=== PATIENT | male | born 1955 | race Caucasian/White ===

== ENCOUNTER → 2021-11-04 13:18 | Outpatient (BNVA) | payer BC, SELFPAY | PROVIDERS: PCP Internal Medicine; Visit Provider Psychiatry & Neurology Neurology | DX: Z13.89 Encounter for screening for other disorder (principal) ==

== ENCOUNTER 2023-04-12 14:24 | Outpatient (AMB) | payer MEDICARE, SELFPAY ==
--- NOTE | 2023-04-12 14:35 | HO.SPINEOV ---
Intake Intake Visit Reasons: Pinched nerve. Intake Note: Mr. John is here today c/o low back pain. 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 He is a gentleman with known history of lumbar fusion done by Dr. Da Silva from L3-S1 a few years ago. A few months back he started to develop pain in the right side of his low back radiating around into his groin and his testicle. It did not radiate further down his leg. He he was in the hospital at [facility] for evaluation of this discomfort. Lumbar MRI at [place] showed may be moderate foraminal narrowing on the right at L5-S1 but otherwise no significant issues. He was treated with a few cortisone injections. He could not remember where they were done. He does not believe there was done in the lumbar spine. He did not have any relief from those. On my examination today he is walking with a walker he appears uncomfortable. He does have positive DOT sign on the right side. He has an artificial hip in this region. He also has positive finger Zenon test. His lumbar MRI looks excellent, although the radiologist suggests there is moderate foraminal narrowing there is no evidence of nerve compression. I do not believe the symptoms he is dealing with there is a lumbar radiculopathy. It definitely could be SI joint inflammation. It is well-known that after lumbar fusion extended down to the sacrum that SI joint problems can be a type of adjacent segment disease. I would like to send him back to Dr. Crowell to do right SI joint injection. He will follow up after that. Total amount of time spent in this visit was 20 minutes in discussion of symptoms, lumbar MRI imaging results and subsequent plan of care Hai Da Silva MD,PhD [facility] Coding Level of Care Code Est Pt Level 3 (75458) Diagnoses Chronic SI joint pain M53.3; G89.29
== END 2023-04-12 14:56 | disposition home or self-care (01) ==
PROVIDERS: PCP Internal Medicine; Visit Provider Physician Assistant
DX: M53.3 Sacrococcygeal disorders, not elsewhere classified (principal); G89.29 Other chronic pain
CPT/HCPCS: 99213

== ENCOUNTER → 2023-04-12 14:24 | Outpatient (BNVA) | payer MEDICARE, SELFPAY | PROVIDERS: PCP Internal Medicine; Visit Provider Physician Assistant | DX: G89.29 Other chronic pain (principal); M53.3 Sacrococcygeal disorders, not elsewhere classified | CPT/HCPCS: 99212 ==

== ENCOUNTER 2023-04-28 08:12 | Outpatient (REF) | payer MEDICARE, SELFPAY | END 2023-04-28 08:13 | disposition home or self-care (01) | LOC: HO.HOSX 08:12 | PROVIDERS: Visit Provider Orthopaedic Surgery | DX: M70.61 Trochanteric bursitis, right hip (principal); M25.551 Pain in right hip; Z79.899 Other long term (current) drug therapy | CPT/HCPCS: 20610; 99212; J3301 ==

== ENCOUNTER 2023-04-28 11:00 | Outpatient (AMB) | payer MEDICARE, SELFPAY ==
[2023-04-28 11:26] VITALS: BMI 37.6
--- NOTE | 2023-04-28 11:26 | MHC.OFFVIS ---
Intake Vital Signs 04/28/23 11:26 Height 5 ft 7 in Weight 240 lb BMI 37.6 Intake Visit Reasons: AUDIOMETRIST-Right hip pain Intake Note: Pritesh 67 yr old male presents today for a new patient visit to re-establish care with DR. Bashir. Hx of B/L knee and hip replacement. States he is here for his right hip pain. He describes his pain as achy in nature. Most of the pain is located along the lateral aspect of his right hip. He has had cortisone injections given into his back which gave him minimal relief. He has also undergone lumbar spine fusion surgery by Dr. Da Silva. He was recently seen in the neurosurgery office and told that no further back surgery is indicated at this time. He denies any fevers or chills. He denies any recent trauma. Allergies codeine Adverse Reaction (Mild, Verified 04/28/23 11:29) Gastrointestinal Upset Medication List - Last Reconciled 04/28/23 by Missael Bashir MD aspirin 81 mg PO DAILY atorvastatin (Lipitor) 80 mg PO DAILY baclofen 1 tab qam and 2 tabs qhs PO bedtime; buspirone 5 mg PO BID carvedilol 6.25 mg PO BID escitalopram oxalate 20 mg PO DAILY gabapentin 300 mg PO BEDTIME lidocaine 5% 1 patch topical DAILY lisinopril 2.5 mg PO DAILY methylprednisolone (Medrol (Samson)) PO PER PKG DIR pregabalin 50 mg PO TID PFSH Medical History (Updated 04/28/23 @ 12:41 by Missael Bashir MD) Cervical spondylosis Adjustment disorder Hypersomnia Snoring Obesity Spondylosis BPPV (benign paroxysmal positional vertigo) Myocardial infarction Surgical History History of hip surgery History of knee replacement Hx of cholecystectomy Family History Father CAD (coronary artery disease) Hyperlipidemia Mother CAD (coronary artery disease) Hyperlipidemia Social History Alcohol intake: current Patient Tobacco Use Status: Never used Tobacco Physical Exam Vital Signs: BMI result Body Mass Index 37.6 Const Other: Well-nourished well-developed very friendly male awake alert and oriented x3 in no acute distress Extrem Other: Bilateral lower extremity examination shows good capillary refill, no skin lesions noted, normal sensation light touch Right hip examination shows that the surgical incision is well healed, no erythema, no swelling, minimal discomfort with range of motion, focal tenderness over his bursa Office Procedures Joint Injection/Drain Joint Injection/Drain Primary Site: other (Right hip greater trochanteric bursa) Prep: site was prepped using aseptic technique Injected: 40 mg of and Kenalog Procedure: The patient tolerated the procedure well Coding - Large joint Procedure code (CPT) selection complete Results Reviewed Results Reviewed: 04/28/23 11:37 Lidocaine HCl 2 % MPF [Xylocaine 2 % MPF] 5 ml .ROUTE .STK-MED ONE 04/28/23 11:38 Triamcinolone Acetonide [Kenalog-40] 40 mg .ROUTE .STK-MED ONE X-rays of the patient's right hip show a total hip arthroplasty in good position with no signs of loosening, no acute bony abnormalities Assessment & Plan Assessment & Plan (1) Trochanteric bursitis, right hip: Code(s): M70.61 - Trochanteric bursitis, right hip Plan Mr. Cota presents with pain along the lateral aspect of his right hip most likely due to greater trochanteric bursitis. Thus, the risks and benefits of a cortisone injection were discussed at length with the patient. The patient wished to proceed. He tolerated the injection well. I also gave him a prescription for a Medrol Dosepak. Activity modifications were discussed at length with the patient. He will contact me prior to his follow-up appointment in 6-8 weeks should his symptoms worsen in any way. Feel free to call me at any time should questions regarding his orthopedic management arise. I spent 22 minutes in reviewing the patient's records and imaging studies, seeing the patient and documenting in the medical record. Orders: Orders XR hip RT min 2V Today M25.551 - Pain in right hip AMB Joint Injection/Aspiration Today M70.61 - Trochanteric bursitis, right hip Medications: New methylprednisolone (Medrol (Samson)) PO PER PKG DIR 21 ea 0RF Coding Level of Care Code Est Pt Level 2 (05102) Diagnoses Trochanteric bursitis, right hip M70.61 CPT Codes Coding - Large joint: 91634 - Large joint ([id number])
== END 2023-04-28 12:11 | disposition home or self-care (01) ==
PROVIDERS: PCP Internal Medicine; Visit Provider Orthopaedic Surgery
DX: M70.61 Trochanteric bursitis, right hip (principal)
CPT/HCPCS: 20610; 99214

== ENCOUNTER 2023-06-29 09:28 | Outpatient (AMB) | payer MEDICARE, SELFPAY ==
[2023-06-29 09:37] VITALS: BMI 37.6
--- NOTE | 2023-06-29 09:37 | MHC.OFFVIS ---
Intake Vital Signs 06/29/23 09:37 Height 5 ft 7 in Weight 240 lb BMI 37.6 Intake Visit Reasons: OV - Right hip pain, last inj 04/28/23 Intake Note: Pritesh is a 68 year old male who presents today for a follow up of his right hip pain, last injection 04/28/23. The patient states that he has gotten very good relief from the injection. He reports mild discomfort along the lateral aspect of both of his hips. He has undergone bilateral total hip replacement surgeries in the past. He denies any fevers or chills. He is due to follow-up with Dr. Da Silva regarding continued neck pain which radiates into his right arm. Allergies codeine Adverse Reaction (Mild, Verified 06/29/23 09:37) Gastrointestinal Upset Medication List - Last Reconciled 06/29/23 by Missael Bashir MD aspirin 81 mg PO DAILY atorvastatin (Lipitor) 80 mg PO DAILY baclofen 1 tab qam and 2 tabs qhs PO bedtime; buspirone 5 mg PO BID carvedilol 6.25 mg PO BID escitalopram oxalate 20 mg PO DAILY gabapentin 300 mg PO BEDTIME lidocaine 5% 1 patch topical DAILY lisinopril 2.5 mg PO DAILY methylprednisolone (Medrol (Samson)) PO PER PKG DIR methylprednisolone (Medrol (Samson)) PO PER PKG DIR pregabalin 50 mg PO TID PFSH Medical History (Updated 04/28/23 @ 12:41 by Missael Bashir MD) Cervical spondylosis Adjustment disorder Hypersomnia Snoring Obesity Spondylosis BPPV (benign paroxysmal positional vertigo) Myocardial infarction Surgical History History of hip surgery History of knee replacement Hx of cholecystectomy Family History Father CAD (coronary artery disease) Hyperlipidemia Mother CAD (coronary artery disease) Hyperlipidemia Social History Alcohol intake: current Patient Tobacco Use Status: Never used Tobacco Physical Exam Vital Signs: BMI result Body Mass Index 37.6 Const Other: Well-nourished well-developed very friendly male awake alert and oriented x3 in no acute distress Extrem Other: Bilateral lower extremity examination shows good capillary refill, no skin lesions noted, normal sensation light touch Bilateral hip examination shows that the surgical incisions are well healed, no erythema, minimal discomfort with range of motion, mild tenderness over his bursae Results Reviewed Results Reviewed: X-rays of the patient's bilateral hips taken today show total hip arthroplasties in good position with no signs of loosening, no acute bony abnormalities Assessment & Plan Assessment & Plan (1) Trochanteric bursitis, right hip: Code(s): M70.61 - Trochanteric bursitis, right hip Plan Ms. Cota continues to do well after undergoing bilateral total hip replacement surgeries. He does have intermittent discomfort along the lateral aspect of his right hip due to greater trochanteric bursitis. At this point his symptoms are tolerable to him. We will hold off on another cortisone injection. He will follow up with me on an as-needed basis should his symptoms worsen in any way. Feel free to call me at any time should questions regarding his orthopedic management arise. I spent 22 minutes in reviewing the patient's records and imaging studies, seeing the patient and documenting in the medical record. Orders: Orders XR hip RT min 2V Today M25.551 - Pain in right hip Coding Level of Care Code Est Pt Level 2 (70123) Diagnoses Trochanteric bursitis, right hip M70.61
== END 2023-06-29 09:58 | disposition home or self-care (01) ==
PROVIDERS: PCP Internal Medicine; Visit Provider Orthopaedic Surgery
DX: M70.61 Trochanteric bursitis, right hip (principal)
CPT/HCPCS: 99212

== ENCOUNTER 2023-06-29 12:32 | Outpatient (REF) | payer MEDICARE, SELFPAY ==
--- NOTE | ~2023-06-29 | XR_ITS ---
EXAMINATION: XR HIP, RIGHT CLINICAL INFORMATION: Pain COMPARISON: None available. TECHNIQUE: Two views of the right hip. Single view the pelvis FINDINGS: Status post bilateral hip arthroplasty and lumbosacral spinal fusion. Hardware grossly intact. Joint no acute visible fracture or dislocation. Spaces and alignment are otherwise maintained. Soft tissues are unremarkable. XR/XR hip RT min 2V IMPRESSION: 1. Status post bilateral hip arthroplasty and lumbosacral spinal fusion. Hardware grossly intact. 2. No acute visible fracture or dislocation.
== END 2023-06-29 12:33 | disposition home or self-care (01) ==
LOC: HO.HOSX 12:32
PROVIDERS: Visit Provider Orthopaedic Surgery
DX: M70.61 Trochanteric bursitis, right hip (principal); Z79.899 Other long term (current) drug therapy
CPT/HCPCS: 73502; 99212

== ENCOUNTER 2023-07-12 14:29 | Outpatient (AMB) | payer MEDICARE, SELFPAY ==
--- NOTE | 2023-07-12 16:04 | HO.SPINEOV ---
Intake Intake Visit Reasons: neck pain Allergies codeine Adverse Reaction (Mild, Verified 06/29/23 09:37) Gastrointestinal Upset Assessment & Plan Assessment & Plan (1) Cervical radiculopathy: Code(s): M54.12 - Radiculopathy, cervical region Plan Dear colleague, On 07/12/2023, I saw Pritesh Cota for a new complaint of right-sided neck pain radiating down his arm into his hand. The pain started approximately 2 months ago and has increased significantly in the last month. The pain is constant and is associated with numbness in the same distribution. He denies weakness. The left side is unaffected. No weakness. He had an ACDF C5-C7 20 years ago. On exam, there is a numbness of his whole hand and dorsum of his right arm. Reflexes are symmetrically low. No pathological reflexes. An MRI of the cervical spine from [facility] shows status post C5-C7 anterior diskectomy fusion. This adjacent degenerative disc disease C4-5 with right foraminal stenosis and right C6 foraminal stenosis. In summary, this patient developed an acute cervical radiculopathy, right side. I do not think that the C4-5 disc space with the right C5 foraminal stenosis is responsible for his symptoms based on the radiation into his hand. Maybe this C6 nerve root this responsible although an to not really understand why a nerve root in the previously fused area would become symptomatic. My idea is to refer him for a C5-C6 epidural steroid injection and to have him follow-up after. I spent 45 minutes in his consult for preparation, review of imaging and discussing plan of care. Arnoldo Da Silva MD, PhD Spine Fellowship Trained Neurosurgeon Director, [facility] Orders: Referrals Pain Management Referral M54.12 - Radiculopathy, cervical region Coding Level of Care Code Est Pt Level 4 (93841) Diagnoses Cervical radiculopathy M54.12
== END 2023-07-12 16:07 | disposition home or self-care (01) ==
PROVIDERS: PCP Internal Medicine; Visit Provider Neurological Surgery
DX: M54.12 Radiculopathy, cervical region (principal)
CPT/HCPCS: 99214

== ENCOUNTER → 2023-07-12 14:29 | Outpatient (BNVA) | payer MEDICARE, SELFPAY | PROVIDERS: PCP Internal Medicine; Visit Provider Neurological Surgery | DX: M54.12 Radiculopathy, cervical region (principal) | CPT/HCPCS: 99212 ==

== ENCOUNTER 2023-07-21 09:22 | Outpatient (AMB) | payer MEDICARE, SELFPAY ==
--- NOTE | 2023-07-21 09:32 | A.OFFVIS_ITS ---
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 Accompanied by: Self / Same As Patient Allergies ibuprofen [From Motrin] Allergy (Unknown, Verified 07/21/23 09:46) Vomiting oxycodone Allergy (Unknown, Verified 07/21/23 09:46) Nausea codeine Adverse Reaction (Mild, Verified 07/21/23 09:46) Gastrointestinal Upset HPI Radiculopathy, cervical region/Lvm 2 HPI0 Location right side of neck, radiates down right arm to right hand Duration 2 months Characteristics of symptom or complaint Aching Aggravating or associated factors Movement Relieving factors Heat, Treatment Methocarbamol, home PT- last done in May 2023 did not help much HPI Comments 2 History of Present Illness0 Details Pritesh is a very pleasant 68-year-old male who was referred to our office by Neurosurgery for evaluation management of his cervical neck pain with radiation down the right arm. Patient reports that he has been suffering with this pain for just over 2 months. He has tried physical therapy and home exercise program with minimal relief. He is currently taking muscle relaxers and Tylenol that helped a little bit. Patient states pain today is 5/10, right side of his neck down his right arm and into his hand. The pain is constant throughout the day and night. Patient had recent MRI, results as per below. Patient has history of C5-C7 anterior diskectomy fusion approximately 18 years ago. He was recently evaluated by Dr. Da Silva the neurosurgery office and was referred here for consideration of epidural steroid injection. Patient ambulates with the use of a cane on the right side. In terms of muscle damage condition is described as aching. Pain is negatively impacting patient's general activity, mood, normal work and sleep. Patient denies use of alcohol, tobacco or illicit substances. Patient denies anticoagulation. [facility] Medical History (Updated 07/21/23 @ 10:40 by Laura Felix, HAND SAMPLE MAKER, LIABILITY CLAIMS EXAMINER) Major depression in remission Hypertension Hyperlipidemia Encephalopathy Degeneration of lumbar intervertebral disc Coronary arteriosclerosis CAD in [place] artery Cervical spondylosis Adjustment disorder Hypersomnia Snoring Obesity Spondylosis BPPV (benign paroxysmal positional vertigo) Myocardial infarction Surgical History (Updated 07/21/23 @ 09:56 by Isaura Bro) H/O hemorrhoidectomy Hx of fusion of cervical spine (~2004) Hx laparoscopic cholecystectomy (~10/2019) History of hip surgery History of knee replacement Hx of cholecystectomy Family History Father CAD (coronary artery disease) Hyperlipidemia Mother CAD (coronary artery disease) Hyperlipidemia Social History (Updated 07/21/23 @ 09:46 by Isaura Bro) Alcohol intake: current Alcohol intake frequency: a few times a week Alcohol type: wine Patient Tobacco Use Status: Never used Tobacco Review of Systems Const All systems reviewed & are unremarkable except as noted in HPI and below Physical Exam General: awake, alert, oriented. Answers questions appropriately. Fully engaged in examination. Skin: warm, dry, intact HEENT: Normocephalic. Hearing intact. Cardiac: External chest normal in appearance. Respiratory: No cough, audible wheezing or stridor. Abdomen: without gross distension. MS: No obvious swelling or deformities. Tenderness throughout right upper and middle trapezius muscle. Tender to palpation over paraspinal muscles Tender to palpation over cervical vertebrae Markedly decreased cervical ROM in all planes Neurological: Oriented to person, place, time and situation. Thought process intact. No gait abnormalities appreciated. Psychiatric: Appropriate mood and affect. Good judgment and insight. Results Reviewed Results Reviewed: 06/20/2023 Assessment & Plan Assessment & Plan (1) Cervical radiculopathy: Code(s): M54.12 - Radiculopathy, cervical region (2) Post laminectomy syndrome: Code(s): M96.1 - Postlaminectomy syndrome, not elsewhere classified Plan Pritesh presented to the office today for evaluation and management of his cervical neck pain and right arm numbness. Patient was referred here by neurosurgery for epidural steroid injection at C5- C6. He has exhausted conservative treatment including PT, HEP, OTC medications and muscle relaxers. Discussed options for treatment including diagnostic interventional testing, epidural steroid injections, peripheral nerve stimulation with Sprint, RFA and more permanent neuromodulation. Methocarbamol refill sent per patient request. will schedule for C5-C6 Interlaminar COLTON, fluoroscopy guided with local anesthetic. All questions and concerns have been answered and patient agrees with the plan. Follow up after injections and sooner if needed. Medications: New 2 methocarbamol 500 mg PO QID 120 tabs 0RF Coding Level of Care Code New Pt Level 4 (78907) Diagnoses Cervical radiculopathy M54.12 Post laminectomy syndrome M96.1
[2023-07-21 09:56] VITALS: BP 121/64; PULSE 70; O2SAT 97; BMI 37.7
== END 2023-07-21 10:48 | disposition home or self-care (01) ==
PROVIDERS: PCP Internal Medicine; Visit Provider Registered Nurse Emergency
DX: M54.12 Radiculopathy, cervical region (principal); M96.1 Postlaminectomy syndrome, not elsewhere classified
CPT/HCPCS: 99204

== ENCOUNTER → 2023-07-21 09:22 | Outpatient (BNVA) | payer MEDICARE, SELFPAY | PROVIDERS: PCP Internal Medicine; Visit Provider Registered Nurse Emergency | DX: M54.12 Radiculopathy, cervical region (principal); M96.1 Postlaminectomy syndrome, not elsewhere classified | CPT/HCPCS: 99202 ==

== ENCOUNTER 2023-08-30 09:30 | Outpatient (AMB) | payer MEDICARE, SELFPAY ==
[2023-08-30 09:32] VITALS: BMI 37.6
--- NOTE | 2023-08-30 09:32 | A.OFFVIS_ITS ---
Intake Vital Signs 08/30/23 09:32 Height 5 ft 7 in Weight 240 lb BMI 37.6 Intake Visit Reasons: OV-Right hip pain, last inj 04/28/23 Intake Note: Pritesh is a 68 year old male who present with Right hip pain. Patient reports his last injection was on 04/28/2023 has helped and he would like to repeat the injection. He describes his discomfort as achy in nature. He denies any fevers or chills. Did undergo right total hip replacement several years ago. He denies any locking or giving way. Allergies ibuprofen [From Motrin] Allergy (Unknown, Verified 08/30/23 09:37) Vomiting oxycodone Allergy (Unknown, Verified 08/30/23 09:37) Nausea codeine Adverse Reaction (Mild, Verified 08/30/23 09:37) Gastrointestinal Upset Medication List - Last Reconciled 08/30/23 by Missael Bashir MD aspirin 81 mg PO DAILY atorvastatin (Lipitor) 80 mg PO DAILY buspirone 10 mg PO BID carvedilol 3.125 mg PO BID clopidogrel 75 mg PO DAILY fluticasone propionate 50 mcg/actuation 1 spray intranasal DAILY isosorbide mononitrate ER 30 mg PO BID losartan 25 mg PO DAILY meclizine 12.5 mg PO TID methocarbamol 500 mg PO QID methocarbamol 500 mg PO QID PRN pregabalin 50 mg PO TID PFSH Medical History Major depression in remission Hypertension Hyperlipidemia Encephalopathy Degeneration of lumbar intervertebral disc Coronary arteriosclerosis CAD in [place] artery Cervical spondylosis Adjustment disorder Hypersomnia Snoring Obesity Spondylosis BPPV (benign paroxysmal positional vertigo) Myocardial infarction Surgical History H/O hemorrhoidectomy Hx of fusion of cervical spine (~2004) Hx laparoscopic cholecystectomy (~10/2019) History of hip surgery History of knee replacement Hx of cholecystectomy Family History Father CAD (coronary artery disease) Hyperlipidemia Mother CAD (coronary artery disease) Hyperlipidemia Social History Alcohol intake: current Alcohol intake frequency: a few times a week Alcohol type: wine Patient Tobacco Use Status: Never used Tobacco Physical Exam Vital Signs: BMI result Body Mass Index 37.6 Const Other: Well-nourished well-developed very friendly male awake alert and oriented x3 in no acute distress Extrem Other: Bilateral lower extremity examination shows good capillary refill, no skin lesions noted, normal sensation light touch Right hip examination shows that the surgical incision is well healed, no erythema, minimal discomfort with range of motion, tenderness over his greater trochanteric bursa, no overlying skin lesions Office Procedures Joint Injection/Drain Joint Injection/Drain Primary Site: other (Right hip greater trochanteric bursa) Prep: site was prepped using aseptic technique Injected: 40 mg of, DepoMedrol and 1% plain lidocaine Procedure: The patient tolerated the procedure well Coding - Large joint Procedure code (CPT) selection complete Assessment & Plan Assessment & Plan (1) Trochanteric bursitis, right hip: Code(s): M70.61 - Trochanteric bursitis, right hip Plan Mr. Cota presents with discomfort along the lateral aspect of his right hip due to greater trochanteric bursitis. I had a lengthy discussion with the patient regarding the treatment options. The risks and benefits of a right hip bursa cortisone injection were discussed at length with the patient. The patient wished to proceed with the injection. He tolerated the injection well. He will continue with his home exercise program. Will follow up with me on an as-needed basis should his symptoms not plateau at an unacceptable level over the next few months. Feel free to call me at any time should questions regarding his ort hopedic management arise. I spent 22 minutes in reviewing the patient's records and imaging studies, seeing the patient and documenting in the medical record. Orders: Orders AMB Joint Injection/Aspiration Today M70.61 - Trochanteric bursitis, right hip Coding Level of Care Code Est Pt Level 2 (13157) Diagnoses Trochanteric bursitis, right hip M70.61 CPT Codes Coding - Large joint: 53488 - Large joint ([id number])
== END 2023-08-30 10:07 | disposition home or self-care (01) ==
PROVIDERS: PCP Internal Medicine; Visit Provider Orthopaedic Surgery
DX: M70.61 Trochanteric bursitis, right hip (principal)
CPT/HCPCS: 20610; 99213

== ENCOUNTER → 2023-08-30 09:30 | Outpatient (BNVA) | payer MEDICARE, SELFPAY | PROVIDERS: PCP Internal Medicine; Visit Provider Orthopaedic Surgery | DX: M70.61 Trochanteric bursitis, right hip (principal) | CPT/HCPCS: 20610; 99212; J1020 ==

== ENCOUNTER 2023-12-13 14:05 | Outpatient (AMB) | payer MEDICARE, SELFPAY ==
[2023-12-13 14:23] VITALS: BMI 37.6
--- NOTE | 2023-12-13 14:23 | MHC.OFFVIS ---
Vital Signs 12/13/23 14:23 Height 5 ft 7 in Weight 240 lb BMI 37.6 Intake Visit Reasons: OV-Right hip pain, last inj 08/30/23 Intake Note: Pritesh is a 68 year old Male who presents with right hip pain. Patient states at his last appointment on 08/30/2023 he had a Right hip injection and it gave him good relief. He would like to hold off on the injection today. He continues with his home exercise program. The patient states that he recently underwent removal of one of his kidneys due to cancer. Allergies ibuprofen [From Motrin] Allergy (Unknown, Verified 12/13/23 14:32) Vomiting oxycodone Allergy (Unknown, Verified 12/13/23 14:32) Nausea codeine Adverse Reaction (Mild, Verified 12/13/23 14:32) Gastrointestinal Upset Medication List - Last Reconciled 12/14/23 by Missael Bashir MD aspirin 81 mg PO DAILY atorvastatin (Lipitor) 80 mg PO DAILY buspirone 10 mg PO BID carvedilol 3.125 mg PO BID clopidogrel 75 mg PO DAILY fluticasone propionate 50 mcg/actuation 1 spray intranasal DAILY isosorbide mononitrate ER 30 mg PO BID losartan 25 mg PO DAILY meclizine 12.5 mg PO TID methocarbamol 500 mg PO QID methocarbamol 500 mg PO QID PRN pregabalin 50 mg PO TID PFSH Medical History Major depression in remission Hypertension Hyperlipidemia Encephalopathy Degeneration of lumbar intervertebral disc Coronary arteriosclerosis CAD in [place] artery Cervical spondylosis Adjustment disorder Hypersomnia Snoring Obesity Spondylosis BPPV (benign paroxysmal positional vertigo) Myocardial infarction Surgical History H/O hemorrhoidectomy Hx of fusion of cervical spine (~2004) Hx laparoscopic cholecystectomy (~10/2019) History of hip surgery History of knee replacement Hx of cholecystectomy Family History Father CAD (coronary artery disease) Hyperlipidemia Mother CAD (coronary artery disease) Hyperlipidemia Social History Alcohol intake: current Alcohol intake frequency: a few times a week Alcohol type: wine Patient Tobacco Use Status: Never used Tobacco Physical Exam Vital Signs: BMI result Body Mass Index 37.6 Const Other: Well-nourished well-developed very friendly male awake alert and oriented x3 in no acute distress Extrem Other: Bilateral lower extremity examination shows good capillary refill, no skin lesions noted, normal sensation light touch Right hip examination shows that the surgical incision is well healed, no erythema, mild tenderness over his bursa, no overlying skin lesions, minimal discomfort with range of motion Assessment & Plan Assessment & Plan (1) Trochanteric bursitis, right hip: Code(s): M70.61 - Trochanteric bursitis, right hip Category: Medical Plan Mr. Cota presents with intermittent discomfort along the lateral aspect of his right hip most likely due to greater trochanteric bursitis. I had a lengthy discussion with the patient regarding the treatment options. At this point his symptoms are tolerable to him. He will continue with his home exercise program. He will contact me prior to his annual follow-up appointment should any questions or concerns arise. Feel free to call me at any time should questions regarding his orthopedic management arise. I spent 20 minutes in reviewing the patient's records and imaging studies, seeing the patient and documenting in the medical record. Coding Level of Care Code Est Pt Level 3 (55040) Diagnoses Trochanteric bursitis, right hip M70.61
== END 2023-12-13 14:53 | disposition home or self-care (01) ==
PROVIDERS: PCP Internal Medicine; Visit Provider Orthopaedic Surgery
DX: M70.61 Trochanteric bursitis, right hip (principal)
CPT/HCPCS: 99213

== ENCOUNTER → 2023-12-13 14:05 | Outpatient (BNVA) | payer MEDICARE, SELFPAY | PROVIDERS: PCP Internal Medicine; Visit Provider Orthopaedic Surgery | DX: M70.61 Trochanteric bursitis, right hip (principal) | CPT/HCPCS: 99212 ==

== ENCOUNTER 2024-05-24 09:48 | Outpatient (REF) | payer MEDICARE, SELFPAY ==
--- NOTE | ~2024-05-24 | XR_ITS ---
EXAMINATION: XR KNEE LEFT 3 VIEWS CLINICAL INFORMATION: Pain in left knee M25.562. COMPARISON: None available TECHNIQUE: AP, lateral and sunrise views of the left knee. FINDINGS: Intact total knee arthroplasty hardware in anatomic alignment. Moderate enthesopathic changes off the superior patella. Soft tissue calcifications overlie the anterolateral knee. No fracture or joint effusion. Alignment is anatomic. Joint spaces are maintained. XR/XR knee LT 3V IMPRESSION: 1. Intact total knee arthroplasty hardware in anatomic alignment. 2. No acute fracture or dislocation. Electronically signed by: Cathryn Adams DO 07/06/2024 11:35 AM EST
== END 2024-05-24 09:49 | disposition home or self-care (01) ==
LOC: HO.HOSX 09:48
PROVIDERS: Visit Provider Orthopaedic Surgery
DX: M25.562 Pain in left knee (principal)
CPT/HCPCS: 73562; 99212

== ENCOUNTER 2024-05-24 09:53 | Outpatient (AMB) | payer MEDICARE, SELFPAY ==
[2024-05-24 09:55] VITALS: BMI 35.5
--- NOTE | 2024-05-24 09:55 | MHC.OFFVIS ---
Vital Signs 05/24/24 09:55 Height 5 ft 7 in Weight 227 lb BMI 35.5 Intake Visit Reasons: Newprob-Left knee pain Intake Note: Mr. Cota presents with complaints of intermittent pain in his left knee after undergoing left total knee replacement surgery several years ago. He describes his pain as achy in nature. He denies any fevers or chills. He has tried Tylenol and anti-inflammatory medicines which gave him mild relief. He denies any locking or giving way. Allergies ibuprofen [From Motrin] Allergy (Unknown, Verified 05/24/24 09:55) Vomiting oxycodone Allergy (Unknown, Verified 05/24/24 09:55) Nausea codeine Adverse Reaction (Mild, Verified 05/24/24 09:55) Gastrointestinal Upset Medication List - Last Reconciled 05/24/24 by Missael Bashir MD aspirin 81 mg PO DAILY atorvastatin (Lipitor) 80 mg PO DAILY buspirone 10 mg PO BID carvedilol 3.125 mg PO BID clopidogrel 75 mg PO DAILY fluticasone propionate 50 mcg/actuation 1 spray intranasal DAILY isosorbide mononitrate ER 30 mg PO BID losartan 25 mg PO DAILY meclizine 12.5 mg PO TID methocarbamol 500 mg PO QID PRN pregabalin 50 mg PO TID PFSH Medical History Major depression in remission Hypertension Hyperlipidemia Encephalopathy Degeneration of lumbar intervertebral disc Coronary arteriosclerosis CAD in [place] artery Cervical spondylosis Adjustment disorder Hypersomnia Snoring Obesity Spondylosis BPPV (benign paroxysmal positional vertigo) Myocardial infarction Surgical History H/O hemorrhoidectomy Hx of fusion of cervical spine (~2004) Hx laparoscopic cholecystectomy (~10/2019) History of hip surgery History of knee replacement Hx of cholecystectomy Family History Father CAD (coronary artery disease) Hyperlipidemia Mother CAD (coronary artery disease) Hyperlipidemia Social History Alcohol intake: current Alcohol intake frequency: a few times a week Alcohol type: wine Patient Tobacco Use Status: Never used Tobacco Physical Exam Vital Signs: BMI result Body Mass Index 35.5 Const Other: Well-nourished well-developed very friendly female awake alert and oriented x3 in no acute distress Extrem Other: Left knee examination shows that the surgical incision is well healed, no erythema, full active extension and flexion to 120 degrees, his patella tracks well Results Reviewed Results Reviewed: X-rays of the patient's left knee show a total knee arthroplasty in good position with no signs of loosening, no acute bony abnormalities Assessment & Plan Assessment & Plan (1) Left knee pain: Code(s): M25.562 - Pain in left knee Category: Medical Plan Mr. Cota presents with continued discomfort in his left knee after undergoing left total knee replacement several years ago most likely due to scar tissue and continued inflammation. He does not have any evidence of active infection. I will have the patient evaluated by Dr. Beth in our pain management Department to see if he would be a candidate for a nerve block procedure. The patient will follow-up as instructed. He does know to take antibiotics before any dental work. He will contact me prior to his follow-up appointment in 3 months should any questions or concerns arise. Feel free to call me at any time should questions regarding his orthopedic management arise. I spent 22 minutes in reviewing the patient's records and imaging studies, seeing the patient and documenting in the medical record. Orders: Orders XR knee LT 3V 05/24/24 M25.562 - Pain in left knee Referrals Pain Management Referral M25.562 - Pain in left knee Medications: New methocarbamol 500 mg PO QID PRN 90 tabs 3RF muscle spasm Coding Level of Care Code Est Pt Level 3 (04615) Complex EM visit Add On G2211 Diagnoses Left knee pain M25.562
== END 2024-05-24 10:14 | disposition home or self-care (01) ==
LOC: HO.HOS 09:54
PROVIDERS: PCP Internal Medicine; Visit Provider Orthopaedic Surgery
DX: M25.562 Pain in left knee (principal)
CPT/HCPCS: 99213; G2211

== ENCOUNTER 2024-09-19 10:22 | Outpatient (AMB) | payer MEDICARE, SELFPAY ==
--- NOTE | 2024-09-19 10:27 | A.OFFVIS_ITS ---
Vital Signs 09/19/24 10:28 Height 5 ft 7 in Weight 227 lb BMI 35.5 Intake Visit Reasons: Left knee pain Intake Note: Pritesh is a 69 year old male who presents with complaints of intermittent left knee discomfort and a feeling that his left knee will ?give out?. He did undergo left total knee replacement surgery several years ago. He denies any fevers or chills. He has tried physical therapy exercises. The patient states that he did have an appointment with Dr. Beth from our pain management department. He missed that appointment for personal reasons. He has taken tramadol which gives him mild relief. Allergies ibuprofen [From Motrin] Allergy (Unknown, Verified 09/19/24 10:28) Vomiting oxycodone Allergy (Unknown, Verified 09/19/24 10:28) Nausea codeine Adverse Reaction (Mild, Verified 09/19/24 10:28) Gastrointestinal Upset Medication List - Last Reconciled 09/19/24 by Missael Bashir MD aspirin 81 mg PO DAILY atorvastatin (Lipitor) 80 mg PO DAILY buspirone 10 mg PO BID carvedilol 3.125 mg PO BID clopidogrel 75 mg PO DAILY fluticasone propionate 50 mcg/actuation 1 spray intranasal DAILY isosorbide mononitrate ER 30 mg PO BID losartan 25 mg PO DAILY meclizine 12.5 mg PO TID methocarbamol 500 mg PO QID PRN pregabalin 50 mg PO TID PFSH Medical History Major depression in remission Hypertension Hyperlipidemia Encephalopathy Degeneration of lumbar intervertebral disc Coronary arteriosclerosis CAD in [place] artery Cervical spondylosis Adjustment disorder Hypersomnia Snoring Obesity Spondylosis BPPV (benign paroxysmal positional vertigo) Myocardial infarction Surgical History H/O hemorrhoidectomy Hx of fusion of cervical spine (~2004) Hx laparoscopic cholecystectomy (~10/2019) History of hip surgery History of knee replacement Hx of cholecystectomy Family History Father CAD (coronary artery disease) Hyperlipidemia Mother CAD (coronary artery disease) Hyperlipidemia Social History Alcohol intake: current Alcohol intake frequency: a few times a week Alcohol type: wine Patient Tobacco Use Status: Never used Tobacco Physical Exam Vital Signs: BMI result Body Mass Index 35.5 Const Other: Well-nourished well-developed very friendly male awake alert and oriented x3 in no acute distress Extrem Other: Left knee examination shows that the surgical incision is well healed, no erythema, full active extension and flexion to 115 degrees, his patella tracks well, no instability Results Reviewed Results Reviewed: X-rays of the patient's left knee taken previously show a total knee arthroplasty in good position with no signs of loosening, no acute bony abnormalities Assessment & Plan Assessment & Plan (1) Left knee pain: Code(s): M25.562 - Pain in left knee Category: Medical Plan Mr. Cota presents with continued left knee discomfort after undergoing left total knee replacement surgery of unclear etiology. At this point the patient does not have any signs of infection. I did place a request for the patient to once again have an appointment with Dr. Beth from our pain management department. The patient may be a candidate for a nerve stimulation procedure. I also had the patient fitted with a knee brace. I find that the knee brace is a medical necessity because of his symptoms of instability. The brace may help prevent future falls. The patient will contact me prior to his follow-up appointment in 3 months should his symptoms worsen in any way. Feel free to call me at any time should questions regarding his orthopedic management arise. I spent 20 minutes in reviewing the patient's records and imaging studies, seeing the patient and documenting in the medical record. Orders: Referrals Pain Management Referral M25.562 - Pain in left knee Coding Level of Care Code Est Pt Level 3 (20476) Complex EM visit Add On G2211 Diagnoses Left knee pain M25.562
[2024-09-19 10:28] VITALS: BMI 35.5
--- OUTSIDE RECORDS SUMMARY | 2024-09-19 12:41 | XMS_ITS | Clinical Summary ---
Author Organization [facility] Address [address] [facility] [address] [place] [address] Phone Care Team Providers Care Water Valve Mechanic Name Role Phone Moses Fields MD Primary Care Provide r Allergies Active Allergy Reactions Criticality Noted Date Comments Codeine 01/03/2018 Other Reaction(s): vomits Ibuprofen 01/06/2024 Other Reaction(s): vomits patient unsure if he has an allergy to motrin Oxycodone Nausea 01/06/2024 Medications atorvastatin (LIPITOR) 80 MG tablet Take 80 mg by mouth 1 (one) time each day Active isosorbide mononitrate (IMDUR) 30 MG 24 hr tablet Take 60 mg by mouth 1 (one) time each day Active carvedilol (COREG) 3.125 MG tablet Take 3.125 mg by mouth 03/09/2023 Active escitalopram (LEXAPRO) 20 MG tablet Take 20 mg by mouth 1 (one) time each day in the evening Active busPIRone (BUSPAR) 10 MG tablet Take 10 mg by mouth 09/19/2023 Active tamsulosin (FLOMAX) 0.4 MG 24 hr capsule Take 0.4 mg by mouth every night Active docusate sodium (Colace) 100 MG capsule Take 100 mg by mouth 12/20/2023 Active Active Problems Problem Noted Date Diagnosed Date Stage 3a chronic kidney disease 04/17/2024 Coronary arteriosclerosis 01/06/2024 Cyst of kidney 01/06/2024 Degeneration of lumbar intervertebral disc 01/05 H/O: depression 01/06/2024 H/O: osteoarthritis 01/06/2024 H/O: vertigo 01/06/2024 Hemiparesis as late effect of cerebrovascular ac cident 01/06/2024 Hematuria 01/06/2024 History of cerebrovascular accident 01/06/2024 Hyperlipidemia 01/06/2024 History of nephrectomy 01/06/2024 Hypertension 01/06/2024 Loss of equilibrium 01/06/2024 Major depression in remission 01/06/2024 Severe obesity 01/06/2024 Postural dizziness 01/06/2024 Malignant tumor of kidney 01/06/2024 Steatosis of liver 01/06/2024 Chronic kidney disease due to benign hypertensio n 01/06/2024 Trochanteric bursitis of left hip 11/04/2020 Immunizations Name Administration Dates Next Due Moderna SARS-COV-2 06/15/2021,10/20/2020 Pfizer SARS-COV-2 09/22/2020 Pneumococcal Polysaccharide 08/01/2017 Family History Medical History Relation Comments Diabetes Father Diabetes Mother Heart disease Mother Relation Status Comments Father Mother Social History Tobacco Use Types Packs/Day Years Used Date Smoking Tobacco: Never Smokeless Tobacco: Never Tobacco Cessation:Counseling Given: Not Answered Alcohol Use Standard Drinks/Week Comments Never 0 (1 standard drink = 0.6 oz pur e alcohol) Sex and Gender Information Value Date Recorded Sex Assigned at Not on file Legal Sex Male 1:00 PM EDT Gender Identity Not on file Sexual Orientation Not on file Last Filed Vital Signs Vital Sign Reading Time Taken Comments Blood Pressure 119/62 04/17/2024 3:29 PM EDT Pulse 86 04/17/2024 3:29 PM EDT Temperature - - Respiratory Rate - - Oxygen Saturation 97% 04/17/2024 3:29 PM EDT Inhaled Oxygen Concentration - - Weight 103 kg (227 lb 3.2 oz) 04/17/2024 3:29 PM EDT Height - - Body Mass Index - - Plan of Treatment Upcoming Encounters Date Type Department Care Team (Late st Contact Info) Description 10/15/2024 2:45 PM EDT Office Visit [facility] [address] [phone] Estephania Bray ARNP [address] [address] Health Maintenance Due Date Last Done Comments Colorectal Cancer Screening: Annual FOBT 2004 Colorectal Cancer Screening: Colonoscopy 2004 Colorectal Cancer Screening: Sigmoidoscopy 2004 Pneumococcal Vaccine: 65+ Ye ars (2 of 2 - PCV) 08/01/2018 08/01/2017 Influenza Vaccine (#1) 2024 Hepatitis B Vaccine Aged Out No longe r eligible based on patient's age to complete this topic Insurance [facility] MEDICARE [facility] MEDIC[facility] Care Teams Water Valve Mechanic Relationship Specialty Start Date End Date Moses Fields MD [address] [place], [place] PCP - General Internal Medicine 01/06/24
--- OUTSIDE RECORDS SUMMARY | 2024-09-19 12:41 | XMS_ITS | Encounter Summary ---
Author Organization [facility] Address [address] [place] [address] Care Team Providers Care Job Counselor Name Role Phone Moses Fields MD Primary Care Provide r Encounter Details Date Type Department Care Team Description 03/09/2024 Social Work [facility] Oncology Services [address] [place] [address] Kelly Cedeño MSW Social History Tobacco Use Types Packs/Day Years Used Date Smoking Tobacco: Never Smokeless Tobacco: Never Alcohol Use Standard Drinks/Week Comments Never 0 (1 standard drink = 0.6 oz pur e alcohol) Sex and Gender Information Value Date Recorded Sex Assigned at Not on file Gender Identity Not on file Sexual Orientation Not on file Job Start Date Occupation Industry Not on file Not on file Not on file documented as of this encounter Plan of Treatment Not on file documented as of this encounter Visit Diagnoses Not on filedocumented in this encounter Care Teams Job Counselor Relationship Specialty Start Date End Date Moses Fields MD [address] [facility] [place] [address] PCP - General Internal Medicine 02/29/24 documented as of this encounter
--- OUTSIDE RECORDS SUMMARY | 2024-09-19 12:41 | XMS_ITS | Clinical Summary ---
Author Organization [facility] Address [address] [place] [address] Care Team Providers Care Sales Development Representative Name Role Phone Moses Fields MD Primary Care Provide r Allergies Active Allergy Reactions Criticality Noted Date Comments Codeine 01/03/2018 Ibuprofen 02/29/2024 Oxycodone 02/29/2024 Medications Medication Sig Dispensed Refills Start Date End Date Status atorvastatin (LIPITOR) tablet 80 mg 0 12/28/2017 Active carvedilol (COREG) 6.25 MG tablet 0 12/28/2017 Active lisinopril (PRINIVIL,ZESTRIL) tablet 2.5 mg Take 1 tablet (2.5 mg total) by mouth daily. 0 12/02/2017 Active omeprazole (PRILOSEC) 40 MG capsule Take 1 capsule (40 mg total) by mouth 2 (two) times a day. 3 12/10/2017 Active Prasugrel HCl (EFFIENT) 10 MG TABS tablet Take 1 tablet (10 mg total) by mouth daily. 6 12/10/2017 Active baclofen (LIORESAL) 10 MG tablet Take 1 tablet (10 mg total) by mouth every night at bedtime. 0 10/06/2020 Active escitalopram (LEXAPRO) 20 MG tablet escitalopram 20 mg tablet TAKE 1 TABLET BY MOUTH EVERYDAY AT BEDTIME 0 Active isosorbide mononitrate (IMDUR) 30 MG 24 hr tablet Take 1 tablet (30 mg total) by mouth. 0 08/07/2020 Active lidocaine (LIDODERM) 5 % APPLY 1 PATCH FOR 12 HOURS DAILY NEEDED. REMOVE AFTER 12 HOURS. 0 10/07/2020 Active Melatonin 10 MG CAPS melatonin 10 mg capsule TAKE 1 CAPSULE BY MOUTH EVERY DAY AT BEDTIME NEEDED 0 Active busPIRone (BUSPAR) 10 MG tablet Take 1 tablet (10 mg total) by mouth 3 (three) times a day. 0 Active clopidogrel (PLAVIX) 75 MG tablet Take 1 tablet (75 mg total) by mouth daily. 0 Active losartan (COZAAR) tablet 25 mg Take 1 tablet (25 mg total) by mouth daily. 0 Active aspirin EC 81 MG tablet Take 1 tablet (81 mg total) by mouth daily. 0 Active tamsulosin (FLOMAX) 0.4 MG CAPS Take 1 capsule (0.4 mg total) by mouth daily. 0 Active docusate sodium (COLACE) 100 MG capsule Take 1 capsule (100 mg total) by mouth 2 (two) times a day. 0 Active vitamin B-12 (CYANOCOBALAMIN) 500 MCG tablet Take 1 tablet (500 mcg total) by mouth daily. 0 Active Active Problems Problem Noted Date Diagnosed Date Malignant neoplasm of left kidney 02/29/2024 Trochanteric bursitis, left hip 11/04/2020 Family History Medical History Relation Name Comments Hypertension Father Diabetes Mother Relation Name Status Comments Father Mother Social History Tobacco [...] file Not on file Not on file Last Filed Vital Signs Vital Sign Reading Time Taken Comments Blood Pressure 107/70 05/02/2024 10:14 AM EDT Pulse 64 05/02/2024 10:14 AM EDT Temperature 35.8 ??C (96.5 ??F) 05/02/2024 10:14 AM E DT Respiratory Rate - - Oxygen Saturation 98% 05/02/2024 10:14 AM EDT Inhaled Oxygen Concentration - - Weight 102.5 kg (226 lb) 05/02/2024 10:14 AM EDT Height 170.2 cm (5' 7 ) 11/04/2020 11:09 AM EDT Body Mass Index 35.4 11/04/2020 11:09 AM EDT Plan of Treatment Health Maintenance Due Date Last Done Comments Hepatitis C Screening 1955 Depression Screening 1967 BMI Counseling 1973 Preventative Health Evaluation 1973 DTap / Tdap / Td (1 - Tdap) 1974 Shingrix-Zoster Vaccine (1 of 2) 1974 Colon Cancer Screening (Colonoscopy) 2000 Pneumococcal Vaccine (2 of 2 - PCV) 08/01/2018 08/01/2017 Fall Risk Assessment 2020 COVID-19 Vaccine (2 - Pfizer risk series) 10/13/2020 09/22/2020 Influenza Vaccine (#1) 2024 07/05/2023 RSV Adult > 60+ Yrs or Completed 3 Hepatitis B Vaccines Aged Out No long er eligible based on patient's age to complete this topic RSV Ped < 20 months Aged Out No longe r eligible based on patient's age to complete this topic Care Teams Sales Development Representative Relationship Specialty Start Date End Date Moses Fields MD [address] [facility] [place] [address] PCP - General Internal Medicine 02/29/24
--- OUTSIDE RECORDS SUMMARY | 2024-09-19 12:41 | XMS_ITS | Encounter Summary ---
Author Organization [facility] Address [address] [place] [address] Care Team Providers Care Spud Sorter Name Role Phone Moses Fields MD Primary Care Provide r Encounter Details Date Type Department Care Team Description 03/09/2024 Social Work [facility] Oncology Services [address] [place] [address] Kelly Cedeño MSW Social History Tobacco Use [...] on filedocumented in this encounter Care Teams Spud Sorter Relationship Specialty Start Date End Date Moses Fields MD [address] [facility] [place] [address] PCP - General Internal Medicine 02/29/24 documented as of this encounter
--- OUTSIDE RECORDS SUMMARY | 2024-09-19 12:41 | XMS_ITS | Encounter Summary ---
Author Organization [facility] Address [address] [place] [address] Care Team Providers Care Professional Golf Tournament Player Name Role Phone Moses Fields MD Primary Care Provide r Reason for Visit * Reason Onset Date Comments ILR implant 09/17/2024 ILR implant / an xiety Encounter Details Date Type Department Care Team (Late st Contact Info) Description 09/17/2024 Telephone [facility] - [address] [place] [phone] Mariluz Kan, YENNI [address] [place] [phone] ILR implant (ILR implant / anxiety ) Social History Tobacco Use Types Packs/Day Years Used Date Smoking Tobacco: Never Smokeless Tobacco: Never Alcohol Use Standard Drinks/Week Comments Never 0 (1 standard drink = 0.6 oz pur e alcohol) Sex and Gender Information Value Date Recorded Sex Assigned at Not on file Legal Sex Male 6:42 AM EST Gender Identity Not on file Sexual Orientation Not on file documented as of this encounter Progress Notes * Víctor Ace - 09/17/2024 9:54 AM EST Pritesh called to speak with Mariluz , He had a procedure for ILR implant that he cancelled. He would like Mariluz to know that He is now on a Anxiety medication , and feels better . He did not want toreschedule the implant Tariq documented in this encounter Plan of Treatment Upcoming Encounters Date Type Department Care Team (Late st Contact Info) Description 10/29/2024 10:15 AM EDT Office Visit Hematology Oncology [address] [place] [phone] Ruddy Perry MD [address] [place] [address] documented as of this encounter Visit Diagnoses Not on filedocumented in this encounter Care Teams Professional Golf Tournament Player Relationship Specialty Start Date End Date Moses Fields MD [address] [place] [address] PCP - General Internal Medicine 05/17/22 documented as of this encounter
--- OUTSIDE RECORDS SUMMARY | 2024-09-19 12:41 | XMS_ITS | Clinical Summary ---
Author Organization [address] [place] [address] Address [address] [place] [address] Phone Care Team Providers Care Director Plans Name Role Phone Moses Fields MD Primary Care Provide r Allergies Active Allergy Reactions Criticality Noted Date Comments Codeine 01/03/2018 Ibuprofen Nausea And Vomiting 01/19/2022 Oxycodone 04/07/2021 Medications isosorbide mononitrate (IMDUR) 30 mg 24 hr tablet Take 1 tablet (30 mg total) by mouth 1 (one) time each day. Active meclizine (ANTIVERT) 12.5 mg tablet Take 12.5 tablets (156.25 mg total) by mouth 3 (three) times a day. Active busPIRone (BUSPAR) 10 mg tablet Take 1 tablet (10 mg total) by mouth 3 (three) times a day. Active lidocaine (Aspercreme, lidocaine,) 4 % patch Apply topically. Active acetaminophen (TYLENOL) 325 mg tablet Take 2 tablets (650 mg total) by mouth every 6 (six) hours if needed. Active aspirin 81 mg EC tablet Take 1 tablet (81 mg total) by mouth 1 (one) time each day. Active ezetimibe (ZETIA) 10 mg tablet Take 1 tablet (10 mg total) by mouth 1 (one) time each day. Active ergocalciferol, vitamin D2, (VITAMIN D2 ORAL) Take 1 Tab ER by mouth 1 (one) time each day. Active carvediloL (COREG) 3.125 mg tabletIndicatio ns:Cerebrovascu lar accident (CVA), unspecified mechanism (CMS/HCC),Arter iosclerosis of coronary artery Take 1 tablet (3.125 mg total) by mouth 2 (two) times a day. 180 tablet 2 5 Active atorvastatin (LIPITOR) 80 mg tablet Take 1 tablet (80 mg total) by mouth 1 (one) time each day. 90 tablet 2 5 Active clopidogreL (PLAVIX) 75 mg tablet TAKE 1 TABLET BY MOUTH EVERY DAY 90 tablet 2 5 Active clopidogreL (PLAVIX) 75 mg tablet Take 1 tablet (75 mg total) by mouth 1 (one) time each day. 025 Discontinued Active Problems Problem Noted Date Diagnosed Date Lightheadedness 06/02/2023 Assessment & Plan (08/06/2024 2:43 PM EST): The patient continues to endorse episodes of dizziness and lightheadedness. 14- day monitor did not reveal any atrial or ventricular arrhythmias, pauses or prolonged episodes of bradycardia. Patient was trialed off of carvedilol to evaluate whether or not this medication was causing his symptoms. During our discussion today he did not notice any improvement in his symptoms being off carvedilol. Subsequently, I am going to restart this medication. We did discuss the potential of updating a 30-day monitor versus going to the implantable loop recorder so that we can further evaluate for any electrical disturbances. At this time, via shared decision making, the patient would like to move forward with ILR placement to further evaluate for any electrical disturbances which could be causing his presyncopal events. We will update a carotid duplex to further evaluate whether or not there is any stenosis. Orders: Vascular US duplex carotid bilateral; Future Case Request EP Lab: Loop recorder insertion Basic metabolic panel; Future CBC and differential; Future CVA (cerebral vascular accident) 08/13/2022 Assessment & Plan (08/06/2024 2:43 PM EST): Continue aspirin statin and Plavix. Orders: ECG 12 lead carvediloL (COREG) 3.125 mg tablet; Take 1 tablet (3.125 mg total) by mouth 2 (two) times a day. Vascular US duplex carotid bilateral; Future Case Request EP Lab: Loop recorder insertion Basic metabolic panel; Future CBC and differential; Future HTN (hypertension) 08/11/2022 Assessment & Plan (08/06/2024 2:43 PM EST): Elevated during today's exam with a reading of 150/82. I am going to reintroduce carvedilol. We will also be increasing patient's isosorbide. Educated on the importance of diet lifestyle to help further assist in reducing blood pressure. The patient was encouraged to follow low-salt low-fat diet, make purposeful strides towards weight loss, and engage in routine aerobic exercise as tolerated. Left sided numbness 08/11/2022 Left-sided weakness 08/11/2022 Assessment & Plan (08/06/2024 2:43 PM EST): Orders: Vascular US duplex carotid bilateral; Future Arteriosclerosis of coronary artery 04/12/2022 Assessment & Plan (08/06/2024 2:43 PM EST): He does continue to endorse episodes of chest discomfort. Cardiac catheterization did not reveal any obstructive coronary disease. Patient did suffer CVA postcardiac catheterization as outlined above . We will increase patient's isosorbide to 90 mg daily. I have reintroduced his carvedilol. Instructed to call 911 or go to the emergency room should the patient begin to experience chest pain or pressure lasting greater than 10 minutes does not resolve with rest. Orders: ECG 12 lead carvediloL (COREG) 3.125 mg tablet; Take 1 tablet (3.125 mg total) by mouth 2 (two) times a day. Basic metabolic panel; Future CBC and differential; Future Hyperlipidemia 04/12/2022 Class 2 obesity 04/12/2022 Adult-onset obesity 04/12/2022 Major depression in remission 04/12/2022 Degeneration of intervertebral disc of lumbar re gion 04/12/2022 Overview (07/04/2024): Last Assessment & Plan: Patient is s/p L3-S1 fusion April 23, 2020. He describes acute pain in the lower thoracic/upper lumbar region of his midline back that started 3 weeks ago, no particular inciting event, he states his pain has been worsening over the last 3 weeks despite trying [id number] pain meds like Tylenol and Motrin.He is having difficulty with balance and walking, has pain that radiates down the left lateral hip, numbness in the legs <feet. He cannot stand up straight, always is standing or walking hunched forward, has to use a wheelchair at home to walk, uses it like a walker and hold onto the handles. He denies bowel bladder incontinence or saddle anesthesia. He has noticed his legs have gotten jumpy at rest in the last 3 weeks. He does have a history of restless leg syndrome but this is different he states. He uses Salonpas cream. He rates his pain 6-10/10, feels it is mostly a constant 10. He does have a prescription for a walker that he needs to slate picker. His PCP gave him a prescription for physical therapy, when he went to therapist told him she cannot work on him until he is seen by our office due to his symptoms and severe pain. Patient had thoracic x-rays that ruled out fracture, showed multilevel degenerative changes. Given his severe pain, difficulty with walking, numbness in both legs I ordered thoracic and lumbar MRI to rule out disc herniation or central stenosis. His pain is right at the thoracolumbar junction, he states at times it will radiate up toward his neck as well. I will call him with results once the MRIs are completed. He is in too much pain to participate in physical therapy at this time. All questions answered. He will call with any concerns or questions. Acute bronchitis with wheezing 01/13/2022 Trochanteric bursitis, left hip 11/04/2020 Encounters Date Type Department Care Team Description 09/17/2024 Telephone [facility] [place] [facility] [address] [facility] [address] [place] [address] Mariluz Kan NP ILR implant (ILR implant / anxiety ) 09/12/2024 Telephone [facility] [place] [facility] [address] [facility] [address] [place] [address] David Christy MD 08/22/2024 11:15 AM EST Ancillary Procedure [facility] [place] [address] [facility] [address] [facility] [address] [place] [phone] Cerebrovascular accident (CVA), unspecified mechanism (CMS/HCC); Left-sided weakness; Lightheadedness 08/17/2024 Telephone [facility] [place] [address] [place] [address] David Christy MD Med Refill (Medication atorvastatin) 08/15/2024 Telephone [facility] [address] [place] [phone] Anthony Palacios MD Procedure (ILR Implant 2.28.25) 08/06/2024 8:10 AM EST Office Visit [facility] [address] [place] [address] Mariluz Kan NP Cerebrovascular accident (CVA), unspecified mechanism (CMS/HCC) (Primary Dx); Arteriosclerosis of coronary artery; Left-sided weakness; Lightheadedness; Primary hypertension 07/16/2024 Telephone [facility] [place] [address] [place] [address] David Christy MD Appointment from Last 3 Months Immunizations Name Administration Dates Next Due Moderna SARS-CoV-2 COVID-19, mRNA, LNP-S, preservative free 06/15/2021 Surgical History Surgery Date Site/Laterality Comments OTHER SURGICAL HISTORY 04/23/2020 PROCEDURE: DC ARTHRODESIS POSTERIOR INTERBODY 1 NTRSPC LUMBAR; COMMENT: L3-S1 discectomy and fusion, Dr. Da Silva TOTAL KNEE ARTHROPLASTY Bilateral PROCEDURE: DC ARTHRP KNE CONDYLE&PLATU MEDIAL&LAT COMPARTMENTS HIP ARTHROPLASTY Bilateral PROCEDURE: HISTORICAL HIP REPLACEMENT CHOLECYSTECTOMY 11/19/2019 PROCEDURE: HISTORICAL CHOLECYSTECTOMY OTHER SURGICAL HISTORY PROCEDURE: SPINAL FUSION, EA ADD'L INTERSPACE; COMMENT: Cervical spinal fusion OTHER SURGICAL HISTORY PROCEDURE: DC HEMORRHOIDECTOMY INTERNAL RUBBER BAND LIGATIONS NECK SURGERY PROCEDURE:NECK SURGERY JOINT REPLACEMENT PROCEDURE:JOINT REPLACEMENT BACK SURGERY PROCEDURE:BACK SURGERY Medical History Medical History Date Comments Acute bronchitis with wheezing D X:Acute bronchitis with wheezing Difficulty swallowing solids DX: Difficulty swallowing solids [place] (myocardial infarction) D X:[place] (myocardial infarction) HTN (hypertension) DX:HTN (hyper tension) Depression DX:Depression GERD (gastroesophageal reflu x disease) 08/11/2022 DX:GERD (gastroesophageal re flux disease) CVA (cerebral vascular accid ent) ([facility]) 08/11/2022 DX:CVA (cerebral vascular ac cident) ([facility]) Adult-onset obesity DX:Adult-ons et obesity Degeneration of lumbar inter vertebral disc DX:Degeneration of lumbar intervertebral disc Hx of osteoarthritis DX:Hx of os teoarthritis Major depression in remissio n ([facility]) DX:Major depression in remis mikayla ([facility]) Severe obesity (BMI 35.0-35. 9 with comorbidity) ([facility]) DX:Severe obesity (BMI 35.0- 35.9 with comorbidity) ([facility]) Adjustment disorder with mix ed emotional features DX:Adjustment disorder with mixed emotional features Backache DX:Backache BPPV (benign paroxysmal posi tional vertigo) DX:BPPV (benign paroxysmal p ositional vertigo) Acute urinary retention DX:Acute urinary retention Impaired mobility and ADLs DX:Im paired mobility and ADLs Left hemiplegia ([facility]) DX:Lef t hemiplegia ([facility]) Injury of back DX:Injury of maryanne k Arthritis DX:Arthritis Hypertension DX:Hypertension GERD (gastroesophageal reflu x disease) DX:GERD (gastroesophageal re flux disease) Heart disease DX:Heart disease Family History Medical History Relation Name Comments Heart attack Brother Heart attack Father Hypertension Father Diabetes Mother Other: Angina Mother Relation Name Status Comments Brother Father Mother Social History Tobacco Use Types Packs/Day Years Used Date Smoking Tobacco: Never Smokeless Tobacco: Never Alcohol Use Standard Drinks/Week Comments Never 0 (1 standard drink = 0.6 oz pur e alcohol) Sex and Gender Information Value Date Recorded Sex Assigned at Not on file Legal Sex Male 6:42 AM EST Gender Identity Not on file Sexual Orientation Not on file Obstetrics History Last Filed Vital Signs Vital Sign Reading Time Taken Comments Blood Pressure 150/82 08/06/2024 8:34 AM EST Pulse 77 08/06/2024 8:34 AM EST Temperature - - Respiratory Rate - - Oxygen Saturation 98% 08/06/2024 8:34 AM EST Inhaled Oxygen Concentration - - Weight 106 kg (233 lb) 08/06/2024 8:34 AM EST Height 170.2 cm (5' 7 ) 08/06/2024 8:34 AM EST Body Mass Index 36.49 08/06/2024 8:34 AM EST Plan of Treatment Upcoming Encounters Date Type Department Care Team (Late st Contact Info) Description 10/29/2024 10:15 AM EDT Office Visit [facility] Hematology Oncology [address] [place] [address] Ruddy Perry MD [address] [place] [address] Health Maintenance Due Date Last Done Comments DTaP,Tdap,and Td Vaccines (1 - Tdap) 1974 Hepatitis A Vaccines (1 of 2 - Risk 2-dose series) 1974 Zoster Vaccines (1 of 2) 1974 Hepatitis B Vaccines (1 of 3 - Risk 3-dose series) 2015 Pneumococcal Vaccine: 50+ Years (2 of 2 - PCV) 08/01/2018 08/01/2017 Cholesterol Screening (Lipid Panel) 07/03/2022 Colorectal Cancer Screening: Colonoscopy 07/03/2022 Depression Screening 07/03/2022 Falls Risk Assessment 07/03/2022 Hepatitis C Screening 07/03/2022 Medicare Annual Wellness Visit 07/03/2022 Social Influencers of Health Screening 07/03/2022 COVID-19 Vaccine (4 - 2023-2 5 season) 2024 06/15/2021, 10/20/2020, 09/22/2020 Influenza Vaccine (#1) 2024 07/05/2023 Hypertension/CHF/CAD Annual BMP Blood Test 09/12/2025 09/12/2024, 05/31/2023 RSV Immunization Patients 60 + Years Old Completed 07/05/2023 HIB Vaccines Aged Out No longer eligi ble based on patient's age to complete this topic HPV Vaccines Aged Out No longer eligi ble based on patient's age to complete this topic IPV Vaccines Aged Out No longer eligi ble based on patient's age to complete this topic MMR Vaccines Aged Out No longer eligi ble based on patient's age to complete this topic Meningococcal ACWY Vaccine Aged Out N o longer eligible based on patient's age to complete this topic Meningococcal B Vacine Aged Out No lo nger eligible based on patient's age to complete this topic RSV Immunization Patients Under 20 months Aged Out No longer eligible b ased on patient's age to complete this topic Varicella Vaccines Aged Out No longer eligible based on patient's age to complete this topic Procedures Procedure Name Priority Date/Time Associated Diagnosis Comments CBC WITH AUTO DIFFERENTIAL Routine 09/12/2024 10:55 AM EST Cerebrovascular accident (CVA), unspecified mechanism (CMS/HCC) Arteriosclerosis of coronary artery Lightheadedness CBC AND DIFFERENTIAL Routine 09/12/2024 10:55 AM EST Cerebrovascular accident (CVA), unspecified mechanism (CMS/HCC) Arteriosclerosis of coronary artery Lightheadedness BASIC METABOLIC PANEL Routine 09/12/2024 10:55 AM EST Cerebrovascular accident (CVA), unspecified mechanism (CMS/HCC) Arteriosclerosis of coronary artery Lightheadedness VAS US DUPLEX CAROTID BILATERAL Routine 08/22/2024 11:16 AM EST Cerebrovascular accident (CVA), unspecified mechanism (CMS/HCC) Left-sided weakness Lightheadedness ECG 12-LEAD Routine 08/06/2024 2:43 PM EST Cerebrovascular accident (CVA), unspecified mechanism (CMS/HCC) Arteriosclerosis of coronary artery from Last 3 Months Results * (ABNORMAL) CBC auto differential (09/12/2024 10:55 AM EST) WBC 8.9 4.8 - 10.8 K/mcL LAB HEMETOLOGY METHOD 09/12/2024 12:54 PM EST [facility] RBC 4.80 4.50 - 5.50 M/mcL LAB HEMETOLOGY METHOD 09/12/2024 12:54 PM EST [facility] Hemoglobin 13.9 13.5 - 17.5 g/dL LAB HEMETOLOGY METHOD 09/12/2024 12:54 PM [facility] Hematocrit 44.2 42.0 - 54.0 % LAB HEMETOLOGY METHOD 09/12/2024 12:54 PM [facility] MCV 93.1 79.0 - 98.0 FL LAB HEMETOLOGY METHOD 09/12/2024 12:54 PM [facility] MCH 29.3 27.0 - 32.0 pcg LAB HEMETOLOGY METHOD 09/12/2024 12:54 PM [facility] MCHC 31.4(L) 32.0 - 37.0 g/dL LAB HEMETOLOGY METHOD 09/12/2024 12:54 PM [facility] RDW 13.0 11.0 - 15.0 % LAB HEMETOLOGY METHOD 09/12/2024 12:54 PM [facility] Platelets 302 130 - 400 K/mcL LAB HEMETOLOGY METHOD 09/12/2024 12:54 PM [facility] MPV 9.8 7.0 - 11.0 FL LAB HEMETOLOGY METHOD 09/12/2024 12:54 PM [facility] NRBC 0.0 <1.0 % LAB HEMETOLOGY METHOD 09/12/2024 12:54 PM [facility] NRBC Absolute 0.00 <0.10 K/mcL LAB HEMETOLOGY METHOD 09/12/2024 12:54 PM [facility] Neutrophils Relative 67.3 % LAB HEMETOLOGY METHOD 09/12/2024 12:54 PM [facility] Lymphocytes Relative 19.4 % LAB HEMETOLOGY METHOD 09/12/2024 12:54 PM [facility] Monocytes Relative 8.8 % LAB HEMETOLOGY METHOD 09/12/2024 12:54 PM [facility] Eosinophils Relative 3.7 % LAB HEMETOLOGY METHOD 09/12/2024 12:54 PM EST [facility] Basophils Relative 0.4 % LAB HEMETOLOGY METHOD 09/12/2024 12:54 PM [facility] Immature Granulocytes Relative 0.4 % LAB HEMETOLOGY METHOD 09/12/2024 12:54 PM [facility] Neutrophils Absolute 6.01 1.50 - 7.00 K/mcL LAB HEMETOLOGY METHOD 09/12/2024 12:54 PM [facility] Lymphocytes Absolute 1.73 1.00 - 5.00 K/mcL LAB HEMETOLOGY METHOD 09/12/2024 12:54 PM [facility] Monocytes Absolute 0.79 0.20 - 1.00 K/mcL LAB HEMETOLOGY METHOD 09/12/2024 12:54 PM [facility] Eosinophils Absolute 0.33 0.00 - 0.50 K/mcL LAB HEMETOLOGY METHOD 09/12/2024 12:54 PM [facility] Basophils Absolute 0.04 0.00 - 0.20 K/mcL LAB HEMETOLOGY METHOD 09/12/2024 12:54 PM [facility] Immature Granulocytes Absolute 0.04(H) 0.00 - 0.03 K/mcL LAB HEMETOLOGY METHOD 09/12/2024 12:54 PM [facility] Blood Venous blood specimen / Unknown Venipuncture / Unknown 09/12/2024 10:55 AM EST 09/12/2024 11:25 AM EST Mariluz Kan NP LAB BLOOD ORDERABLES F inal Result [facility] [address] [place] [address], * (ABNORMAL) Basic metabolic panel (09/12/2024 10:55 AM EST) Sodium 141 133 - 145 mmol/L LAB CHEMISTRY METHOD 09/12/2024 11:58 AM [facility] Potassium 4.6 3.5 - 5.5 mmol/L LAB CHEMISTRY METHOD 09/12/2024 11:58 AM [facility] Chloride 108 96 - 110 mmol/L LAB CHEMISTRY METHOD 09/12/2024 11:58 AM [facility] CO2 26 21 - 32 mmol/L LAB CHEMISTRY METHOD 09/12/2024 11:58 AM [facility] Anion Gap 7 3 - 11 LAB CHEMISTRY METHOD 09/12/2024 11:58 AM [facility] Glucose 105(H) 70 - 100 mg/dL LAB CHEMISTRY METHOD 09/12/2024 11:58 AM [facility] BUN 21 5 - 25 mg/dL LAB CHEMISTRY METHOD 09/12/2024 11:58 AM [facility] Creatinine 1.76(H) 0.70 - 1.30 mg/dL LAB CHEMISTRY METHOD 09/12/2024 11:58 AM [facility] eGFR 41(L) >=60 mL/min/1. 73m2 LAB CHEMISTRY METHOD 09/12/2024 11:58 AM [facility] Comment:Calculation based on the??Chronic Kidney Disease Epidemiology Collaboration (CKD-EPI) equation refit??without adjustment for race. BUN/Creatinine Ratio 11.9 LAB CHEMISTRY METHOD 09/12/2024 11:58 AM [facility] Calcium 8.6 8.5 - 10.5 mg/dL LAB CHEMISTRY METHOD 09/12/2024 11:58 AM [facility] Blood Venous blood specimen / Unknown Venipuncture / Unknown 09/12/2024 10:55 AM EST 09/12/2024 11:24 AM EST Mariluz Kan NP LAB BLOOD ORDERABLES F inal Result [facility] [address] [place] [address], * Vascular US duplex carotid bilateral (08/22/2024 11:16 AM EST) Left CCA dist guadalupe 21 cm/s CV VAS LAB Left CCA dist sys 65 cm/s CV VAS LAB LEFT COMMON CAROTID ARTERY MID D 22 cm/s CV VAS LAB LEFT COMMON CAROTID ARTERY MID S 75 cm/s CV VAS LAB Left CCA prox guadalupe 21 cm/s CV VAS LAB Left CCA prox sys 75 cm/s CV VAS LAB LEFT EXTERNAL CAROTID ARTERY D 17 cm/s CV VAS LAB Left ECA sys 80 cm/s CV VAS LAB Left ICA/CCA sys 0.90 no units CV VAS LAB Left ICA dist guadalupe 20 cm/s CV VAS LAB Left ICA dist sys 53 cm/s CV VAS LAB Left ICA mid guadalupe 22 cm/s CV VAS LAB Left ICA mid sys 56 cm/s CV VAS LAB Left ICA prox guadalupe 21 cm/s CV VAS LAB Left ICA prox sys 55 cm/s CV VAS LAB Left vertebral sys 28 cm/s CV VAS LAB Right CCA dist guadalupe 15 cm/s CV VAS LAB Right cca dist sys 50 cm/s CV VAS LAB RIGHT COMMON CAROTID ARTERY MID D 16 cm/s CV VAS LAB RIGHT COMMON CAROTID ARTERY MID S 63 cm/s CV VAS LAB Right CCA prox guadalupe 13 cm/s CV VAS LAB Right CCA prox sys 58 cm/s CV VAS LAB RIGHT EXTERNAL CAROTID ARTERY D 16 cm/s CV VAS LAB Right eca sys 89 cm/s CV VAS LAB Right ICA/CCA sys 1.20 no units CV VAS LAB Right ICA dist guadalupe 25 cm/s CV VAS LAB Right ICA dist sys 61 cm/s CV VAS LAB Right ICA mid guadalupe 21 cm/s CV VAS LAB Right ICA mid sys 49 cm/s CV VAS LAB Right ICA prox guadalupe 18 cm/s CV VAS LAB Right ICA prox sys 53 cm/s CV VAS LAB Right vertebral sys 28 cm/s CV VAS LAB Left Prox Subclavian PSV 103 cm/s CV VAS LAB Right Prox Subclavian PSV 106 cm/s CV VAS LAB Right arm BP 127 mmHg CV VAS LAB Left arm BP 117 mmHg CV VAS LAB Anatomical Region Laterality Modality Vascular, Abdomen Ultrasound Narrative 08/30/2024 4:54 PM EST RIGHT. 1. There is atherosclerotic plaque in the right carotid system as noted below. 2. There is a < 50% stenosis in the right internal carotid artery based on Doppler velocity. 3. The subclavian and vertebral arteries have normal Doppler flow patterns. LEFT. 1. There is atherosclerotic plaque in the left carotid system as noted below. 2. There is a < 50% stenosis in the left internal carotid artery based on Doppler velocity. 3. The subclavian and vertebral arteries have normal Doppler flow patterns. The interpretation of this study was done following the diagnostic criteria recommendations contained in the [employer]AC updated recommendations for carotid stenosis interpretation criteria document published by [employer] in May 2023. Right Carotid The CCA has no significant plaque. The proximal ICA has minimal plaque. The ECA has no significant plaque. Right BP= 127/83 Vertebral flow is antegrade. Left Carotid The CCA has no significant plaque. The proximal ICA has minimal plaque. The ECA has no significant plaque. Left BP= 117/77 Vertebral flow is antegrade. Manager Zone Details A cates scale, color and doppler analysis ultrasound was performed. During the study longitudinal and transverse views were obtained. Pulsed wave doppler was performed. Mariluz Kan NP CV VASCULAR PROCEDURES Final Result * ECG 12 lead (08/06/2024 2:43 PM EST) Ventricular Rate ECG 77 BPM GEMUSE Atrial Rate 77 BPM GEMUSE P-R Interval 158 ms GEMUSE QRS Duration 88 ms GEMUSE Q-T Interval 394 ms GEMUSE QTc 445 ms GEMUSE P Wave [place] 53 degrees GEMUSE R [place] 20 degrees GEMUSE T [place] 71 degrees GEMUSE ECG Interpretation Normal sinus rhythm Normal ECG When compared with ECG of 17-OCT-2023 14:04, Borderline criteria for Inferior infarct are no longer Present Confirmed by Jose PALACIOS JOHN ([id number]) on 08/06/2024 10:09:14 PM GEMUSE 08/06/2024 8:39 AM EST 08/06/2024 10:09 PM EST us Mariluz Lizzette Loreta TRIMMER MEAT ECG ORDERABLES Edited Result - Final GEMUSE from Last 3 Months Insurance MEDICARE [facility] Advance Directives Documents on File Type Date Recorded Patient [employer] Supervisor Expl anation Health Care Decision (hx) 10/27/2023 AD LONGO DIRECTIVE Health Care Decision (hx) 10/27/2023 AD LONGO DIRECTIVE Health Care Decision (hx) 10/27/2023 AD LONGO DIRECTIVE Care Teams Director Plans Relationship Specialty Start Date End Date Moses Fields MD [address] [place], [place] [address]cirilo Garcia [place] PCP - General Internal Medicine 05/17/22
--- OUTSIDE RECORDS SUMMARY | 2024-09-19 12:41 | XMS_ITS | Encounter Summary ---
Author Organization [facility] Address [address] [place] [address] Care Team Providers Care Embedded Systems Developer Name Role Phone Moses Fields MD Primary Care Provide r Reason for Visit * Imaging (Routine) - Closed Specialty Diagnoses / Procedures Referred By Silverio serra Referred To Contact Diagnoses Cerebrovascular accident (CVA), unspecified mechanism (CMS/HCC) Left-sided weakness Lightheadedness Procedures Vascular US duplex carotid bilateral Mariluz Kan NP [address] [place] [address] Phone: tel: fax: [facility] Referral ID Status Reason Start Date Expiration Date Visits Re quested Visits Authorized [id number] Closed 08/06/2024 08/06/2025 1 1 Encounter Details Date Type Department Care Team (Latest Contact Info) Description 08/22/2024 11:15 AM EST Ancillary Procedure [facility] - [address] [place] [address] Cerebrovascular accident (CVA), unspecified mechanism (CMS/HCC); Left-sided weakness; Lightheadedness Social History Tobacco Use Types Packs/Day Years [...] as of this encounter Plan of Treatment Upcoming Encounters Date Type Department Care Team (Late st Contact Info) Description 10/29/2024 10:15 AM EDT Office Visit [facility] Hematology Oncology [address] [place] [address] Ruddy Perry MD [address] [place] [address] documented as of this encounter Procedures Procedure Name Priority Date/Time Associated Diagnosis Comments VAS US DUPLEX CAROTID BILATERAL Routine 08/22/2024 11:16 AM EST Cerebrovascular accident (CVA), unspecified mechanism (CMS/HCC) Left-sided weakness Lightheadedness documented in this encounter Results * Vascular US duplex carotid bilateral (08/22/2024 [...] Left BP= 117/77 Vertebral flow is antegrade. Arc Welder Apprentice Details A cates scale, color and doppler analysis ultrasound was performed. During the study longitudinal and transverse views were obtained. Pulsed wave doppler was performed. us Mariluz Kan NP CV VASCULAR PROCEDURES Final Result documented in this encounter Visit Diagnoses Diagnosis Cerebrovascular accident (CVA), unspecified mechanism (CMS/HCC) Left-sided weakness Lightheadedness Dizziness and giddiness documented in this encounter Care Teams Embedded Systems Developer Relationship Specialty Start Date End Date Moses Fields MD [address] [place] [address] [place] PCP - General Internal Medicine 05/17/22 documented as of this encounter
--- OUTSIDE RECORDS SUMMARY | 2024-09-19 12:41 | XMS_ITS | Encounter Summary ---
Author Organization [facility] [place] [address] Care Team Providers Care Tyre Finisher And Examiner Name Role Phone Moses Fields MD Primary Care Provide r Encounter Details Date Type Department Care Team (Late st Contact Info) Description 09/12/2024 Telephone [facility] - [facility] [address] [facility] [address] [place] [phone] David Christy MD [address] [facility] [address] [place] [address] Social History Tobacco Use Types Packs/Day Years [...] as of this encounter Progress Notes * Racheal Martinez MA - 09/12/2024 3:58 PM EST Will renew under 2.19 Rx request from pharmacy * Chris Anthony - 09/12/2024 3:03 PM EST NAME:Clopidogrel Bisulfute M TAKEN HOW OFTEN: once a day FILL FOR:90 PHARMACY: [email or web address] documented in this encounter Plan of Treatment Upcoming Encounters Date Type Department Care Team (Late st Contact Info) Description 10/29/2024 10:15 AM EDT Office Visit [facility] Hematology Oncology [address] [place] [phone] Ruddy Perry MD [address] [place] [address] documented as of this encounter Visit Diagnoses Not on filedocumented in this encounter Care Teams Tyre Finisher And Examiner Relationship Specialty Start Date End Date Moses Fields MD [address] [place] [address] PCP - General Internal Medicine 05/17/22 documented as of this encounter
--- OUTSIDE RECORDS SUMMARY | 2024-09-19 12:41 | XMS_ITS | Encounter Summary ---
Author Organization [facility] Address [address] [place] [address] Care Team Providers Care Store Consultant Name Role Phone System, Provider Not In Primary Care Provider Un available Encounter Details Date Type Department Care Team (Late st Contact Info) Description 09/29/2023 Scanned Document [facility] [address] [facility] [address] [place] [phone] Leandra Herrera MD [address] [place] [address] Social History Tobacco Use Types Packs/Day Years Used Date Smoking Tobacco: Never Assessed Sex and Gender Information Value Date Recorded Sex Assigned at Not on file Gender Identity Not on file Sexual Orientation Not on file documented as of this encounter Plan of Treatment Not on file documented as of this encounter Visit Diagnoses Not on filedocumented in this encounter Care Teams Store Consultant Relationship Specialty Start Date End Date System, Provider Not In PCP - General 09/28/23 documented as of this encounter
--- OUTSIDE RECORDS SUMMARY | 2024-09-19 12:41 | XMS_ITS | Encounter Summary ---
Author Organization [facility] [place] [address] Care Team Providers Care Heel Scorer Name Role Phone Moses Fields MD Primary Care Provide r Encounter Details Date Type Department Care Team (Late st Contact Info) Description 05/02/2024 10:10 AM EDT Hospital Encounter TH HISTORIC ENCOUNTERS [facility] ONLY Ruddy Perry MD [address] [place] [phone] Social History Tobacco Use Types Packs/Day [...] on file documented as of this encounter Last Filed [...] hematuria, GERD osteoarthritis, coronary artery disease, S/P ME, depression. Current medications: Atorvastatin, Flomax, aspirin 81 [...] is retired. 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 He is . He has 1 [...] Description 10/29/2024 10:15 AM EDT Office Visit [facility] Hematology Oncology [address] [place] [phone] Ruddy Perry MD [address] [place] [phone] documented as of this encounter Procedures Procedure Name Priority Date/Time Associated Diagnosis Comments HISTORICAL IMAGING SCAN RESULT 05/02/2024 documented in this encounter Results * HISTORICAL IMAGING SCAN RESULT (05/02/2024) Anatomical Region Laterality Modality Ultrasound us Provider Onbase IMG US PROCEDURES Final Resul t documented in this encounter Visit Diagnoses Not on filedocumented in this encounter Care Teams Heel Scorer Relationship Specialty Start Date End Date Moses Fields MD [address] [place] [address] PCP - General Internal Medicine 05/17/22 documented as of this encounter
--- OUTSIDE RECORDS SUMMARY | 2024-09-19 12:41 | XMS_ITS | Clinical Summary ---
Author Organization [facility] Address [address] [place] [address] Care Team Providers Care Printer Machine Name Role Phone System, Provider Not In Primary Care Provider Un available Social History Tobacco Use Types Packs/Day Years Used Date Smoking Tobacco: Never Assessed Sex and Gender Information Value Date Recorded Sex Assigned at Not on file Gender Identity Not on file Sexual Orientation Not on file Plan of Treatment Health Maintenance Due Date Last Done Comments Hepatitis C Virus Screening 1955 DTaP/Tdap/Td Vaccines (1 - Tdap) 1974 Colonoscopy 2000 Pneumococcal Vaccines 50+ (1 of 1 - PCV) 2005 Zoster (Shingles) Vaccine (1 of 2) 2005 Influenza Vaccine 02/23/2024 COVID-19 Vaccine ( - 2023-2 5 season) 2024 RSV Vaccine 60 years and old er and Patients (1 - 1-dose 75+ series) 2030 Hepatitis B Vaccines Aged Out No long er eligible based on patient's age to complete this topic Care Teams Printer Machine Relationship Specialty Start Date End Date System, Provider Not In PCP - General 09/28/23
--- OUTSIDE RECORDS SUMMARY | 2024-09-19 12:41 | XMS_ITS ---
Author Name [facility] Organization Unknown Problems Problem Status Onset Date Problem Type Date of Resoluti on Source Malignant neoplasm of kidney, unspecified laterality (HCC) active EncounterDiagnosisAct CCT
== END 2024-09-19 10:52 | disposition home or self-care (01) ==
PROVIDERS: PCP Internal Medicine; Visit Provider Orthopaedic Surgery
DX: M25.562 Pain in left knee (principal); Z96.652 Presence of left artificial knee joint
CPT/HCPCS: 99213; G2211

== ENCOUNTER → 2024-09-19 10:22 | Outpatient (BNVA) | payer MEDICARE, SELFPAY | PROVIDERS: PCP Internal Medicine; Visit Provider Orthopaedic Surgery | DX: M25.562 Pain in left knee (principal); Z96.652 Presence of left artificial knee joint | CPT/HCPCS: 99212 ==

== ENCOUNTER 2024-10-08 11:15 | Outpatient (AMB) | payer MEDICARE, SELFPAY ==
--- NOTE | 2024-10-08 11:35 | MHC.OFFVIS ---
Vital Signs 10/08/24 11:37 Height 5 ft 7 in Weight 230 lb BMI 36.0 BP 131/71 Blood Pressure Location Lt brachial Position Sitting Respiration 16 Pulse 67 Pulse Source Pulse Oximeter Pulse Oximetry (%) 97 Oxygen Delivery Method Room Air Intake Visit Reasons: Pain in left knee Tube Room Cashier Required: No Allergies ibuprofen [From Motrin] Allergy (Unknown, Verified 10/08/24 11:37) Vomiting oxycodone Allergy (Unknown, Verified 10/08/24 11:37) Nausea codeine Adverse Reaction (Mild, Verified 10/08/24 11:37) Gastrointestinal Upset Medication List - Last Reconciled 10/08/24 by Kayla Brown LPN aspirin 81 mg PO DAILY atorvastatin (Lipitor) 80 mg PO DAILY buspirone 10 mg PO BID carvedilol 3.125 mg PO BID clopidogrel 75 mg PO DAILY isosorbide mononitrate ER 30 mg PO BID losartan 25 mg PO DAILY meclizine 12.5 mg PO TID HPI HPI Pain in left knee: Details: History of Present Illness The patient is a 69-year-old male presenting with persistent left knee pain following a total knee arthroplasty. He describes the pain as severe, with a score ranging from 8 to 10 despite interventions, including TKR. The left knee surgery was performed a considerable time ago. Despite previous cortisone injections and current use of a knee brace, relief has been minimal. Imaging studies revealed no hardware complications. Physical examination found tenderness in the medial aspect of the knee, although there are no signs of infection or swelling, and the surgical incision is well healed. This persistent pain has significantly affected his activities, necessitating further intervention. Pain Description - Onset: Following total knee arthroplasty - Quality: Persistent and severe - Location: Left knee, particularly medial aspect - Intensity: 8 to 10 on the pain scale - Alleviating Factors: Mild relief with knee brace - Aggravating Factors: General activity interfering with daily functions - Impact: Causes significant discomfort, impacting daily activities Physical Exam - Musculoskeletal- Tenderness noted upon palpation in the medial aspect of the left knee. Well-healed midline incision. No signs of infection or swelling present. Results - Imaging studies completed post-surgery showed no hardware issues. Pain Management - Affect: The pain significantly impacts the patient's daily activities and causes severe discomfort. - Analgesia: Cortisone injections administered in the past, with mild relief from the current use of a knee brace. - Adverse Effects: None reported from current treatment. - Activities of Daily Living: Pain interferes considerably with everyday activities. - Aberrant Drug-Related Behaviors: No behaviors indicating medication misuse were reported. PFSH Medical History Major depression in remission Hypertension Hyperlipidemia Encephalopathy Degeneration of lumbar intervertebral disc Coronary arteriosclerosis CAD in [place] artery Cervical spondylosis Adjustment disorder Hypersomnia Snoring Obesity Spondylosis BPPV (benign paroxysmal positional vertigo) Myocardial infarction Surgical History H/O hemorrhoidectomy Hx of fusion of cervical spine (~2004) Hx laparoscopic cholecystectomy (~10/2019) History of hip surgery History of knee replacement Hx of cholecystectomy Family History Father CAD (coronary artery disease) Hyperlipidemia Mother CAD (coronary artery disease) Hyperlipidemia Social History Alcohol intake: current Alcohol intake frequency: a few times a week Alcohol type: wine Patient Tobacco Use Status: Never used Tobacco Physical Exam Vital Signs: Last Vital Signs Pulse 67 10/08/24 11:37 Resp 16 10/08/24 11:37 BP 131/71 10/08/24 11:37 Pulse Ox 97 10/08/24 11:37 Oxygen Delivery Method Room Air 10/08/24 11:37 BMI result Body Mass Index 36.0 Assessment & Plan Assessment & Plan (1) Chronic knee pain after total replacement of left knee joint: Code(s): M25.562 - Pain in left knee; G89.29 - Other chronic pain; Z96.652 - Presence of left artificial knee joint Category: Medical Plan Plan The plan is to proceed with the placement of a left saphenous nerve stimulator to address the chronic left knee pain post-total knee arthroplasty. The process was explained, with a success rate approximately 70%, and minimal restrictions were noted. The procedure will take place as a day procedure once insurance has been approved. Patient was informed and verbally consented to the use of an ambient scribe for clinic note documentation during this visit. Discussion Notes During the consultation, I discussed with the patient the possibility and logistics of using a temporary left saphenous nerve stimulator for his chronic knee pain. The approach involves inserting a wire connected to an external battery pack into the thigh for two months to help alleviate pain through nerve stimulation. The pain relief mechanism was thoroughly explained, with a noted success rate of 70%. The patient was informed about the minor procedure's details, including the necessity to avoid pools and baths but allowing for showering. The duration and aesthete of the dressing and device were explained, and potential benefits and limitations were covered. The patient expressed understanding and willingness to proceed with this least invasive option. I noted insurance approval is required and expect implementation soon after confirmation. Patient Instructions - Await contact regarding the scheduling of the saphenous nerve stimulator procedure. - Avoid pools and soaking baths; showering is permitted. - Monitor knee pain and notify of any significant changes or new symptoms. - Continue with current use of the knee brace for mild relief. - Keep in contact with insurance for approval status updates. Coding Level of Care Code New Pt Level 3 (88603) Diagnoses Chronic knee pain after total replacement of left knee joint M25.562; G89.29; Z96.652
[2024-10-08 11:37] VITALS: BP 131/71; PULSE 67; RESP 16; O2SAT 97; BMI 36.0
== END 2024-10-08 12:20 | disposition home or self-care (01) ==
LOC: HO.PMC 11:15
PROVIDERS: PCP Internal Medicine; Referring Provider Orthopaedic Surgery; Visit Provider Internal Medicine
DX: M25.562 Pain in left knee (principal); G89.29 Other chronic pain; Z96.652 Presence of left artificial knee joint
CPT/HCPCS: 99203

== ENCOUNTER → 2024-10-08 11:15 | Outpatient (BNVA) | payer MEDICARE, SELFPAY | PROVIDERS: PCP Internal Medicine; Referring Provider Orthopaedic Surgery; Visit Provider Internal Medicine | DX: M25.562 Pain in left knee (principal); G89.29 Other chronic pain; Z96.652 Presence of left artificial knee joint | CPT/HCPCS: 99202 ==

== ENCOUNTER 2024-12-25 10:31 | Outpatient (AMB) | payer MEDICARE, SELFPAY ==
--- NOTE | 2024-12-25 10:37 | A.OFFVIS_ITS ---
Vital Signs 12/25/24 10:42 Height 5 ft 7 in Weight 230 lb BMI 36.0 Intake Visit Reasons: OV-LT knee pain follow up Intake Note: Pritesh is a 69 year old male who presents with complaints of mild intermittent discomfort in his left knee after undergoing left total knee replacement surgery several years ago. The patient was seen by Dr. Beth who recommended a nerve stimulation procedure. The patient states that at this point his left knee discomfort is tolerable to him any wishes to hold off on the procedure. He continues with his home exercise program. He denies any fevers or chills. Allergies ibuprofen [From Motrin] Allergy (Unknown, Verified 12/25/24 10:42) Vomiting oxycodone Allergy (Unknown, Verified 12/25/24 10:42) Nausea codeine Adverse Reaction (Mild, Verified 12/25/24 10:42) Gastrointestinal Upset Medication List - Last Reconciled 12/25/24 by Missael Bashir MD aspirin 81 mg PO DAILY atorvastatin (Lipitor) 80 mg PO DAILY bupropion HCl SR 100 mg PO QAM buspirone 10 mg PO BID carvedilol 3.125 mg PO BID cholecalciferol (vitamin D3) 25 mcg PO DAILY clopidogrel 75 mg PO DAILY ezetimibe 10 mg PO DAILY isosorbide mononitrate ER 30 mg PO BID meclizine 12.5 mg PO TID tamsulosin mg PO PFSH Medical History Major depression in remission Hypertension Hyperlipidemia Encephalopathy Degeneration of lumbar intervertebral disc Coronary arteriosclerosis CAD in [place] artery Cervical spondylosis Adjustment disorder Hypersomnia Snoring Obesity Spondylosis BPPV (benign paroxysmal positional vertigo) Myocardial infarction Surgical History H/O hemorrhoidectomy Hx of fusion of cervical spine (~2004) Hx laparoscopic cholecystectomy (~10/2019) History of hip surgery History of knee replacement Hx of cholecystectomy Family History Father CAD (coronary artery disease) Hyperlipidemia Mother CAD (coronary artery disease) Hyperlipidemia Social History Alcohol intake: current Alcohol intake frequency: a few times a week Alcohol type: wine Patient Tobacco Use Status: Never used Tobacco Physical Exam Vital Signs: BMI result Body Mass Index 36.0 Const Other: Well-nourished well-developed very friendly male awake alert and oriented x3 in no acute distress Extrem Other: Left knee examination shows that the surgical incision is well healed, no erythema, range of motion from -3 degrees to 110 degrees, his patella tracks well Assessment & Plan Assessment & Plan (1) Left knee pain: Code(s): M25.562 - Pain in left knee Category: Medical Plan Mr. Cota presents with intermittent left knee discomfort after undergoing left total knee replacement surgery. At this point the patient's symptoms are tolerable to him. He will continue with his home exercise program. He does know to take antibiotics before any dental work. He will contact me prior to his annual follow-up appointment should his symptoms worsen in any way. Feel free to call me at any time should questions regarding his orthopedic management arise. I spent 22 minutes in reviewing the patient's records and imaging studies, seeing the patient and documenting in the medical record. Coding Level of Care Code Est Pt Level 3 (45687) Complex EM visit Add On G2211 Diagnoses Left knee pain M25.562
[2024-12-25 10:42] VITALS: BMI 36.0
--- OUTSIDE RECORDS SUMMARY | 2024-12-25 12:08 | XMS_ITS | Encounter Summary ---
Author Organization [facility] Address [address] [place] [address] Care Team Providers Care Permaculture Designer Name Role Phone System, Provider Not In Primary Care Provider Un available Encounter Details Date Type Department Care Team (Late st Contact Info) Description 09/29/2023 Scanned Document [facility] [address] [facility] [address] [place] [phone] Leandra Herrera MD [address] [place] [address] Social History Tobacco Use Types Packs/Day Years Used Date Smoking Tobacco: Never Assessed Sex and Gender Information Value Date Recorded Sex Assigned at Not on file Legal Sex Male 4:39 PM EST Gender Identity Not on file Sexual Orientation Not on file documented as of this encounter Plan of Treatment Not on file documented as of this encounter Visit Diagnoses Not on filedocumented in this encounter Care Teams Permaculture Designer Relationship Specialty Start Date End Date System, Provider Not In PCP - General 09/28/23 documented as of this encounter
== END 2024-12-25 11:03 | disposition home or self-care (01) ==
LOC: HO.HOS 10:31
PROVIDERS: PCP Internal Medicine; Visit Provider Orthopaedic Surgery
DX: M25.562 Pain in left knee (principal)
CPT/HCPCS: 99213; G2211

== ENCOUNTER → 2024-12-25 10:31 | Outpatient (BNVA) | payer MEDICARE, SELFPAY | PROVIDERS: PCP Internal Medicine; Visit Provider Orthopaedic Surgery | DX: M25.562 Pain in left knee (principal) | CPT/HCPCS: 99212 ==

== ENCOUNTER 2025-02-08 11:23 | Outpatient (AMB) | payer MEDICARE, SELFPAY ==
--- OUTSIDE RECORDS SUMMARY | 2025-02-08 11:50 | XMS_ITS ---
Author Name [facility] Organization Unknown Problems Problem Status Onset Date Problem Type Date of Resoluti on Source Malignant neoplasm of kidney, unspecified laterality (HCC) active EncounterDiagnosisAct [facility] Care Team Organization Name Specialty Phone Email Start Date End Da [facility] PROVIDER SYSTEM Primary Care 09/29/2023
--- OUTSIDE RECORDS SUMMARY | 2025-02-08 11:50 | XMS_ITS | Encounter Summary ---
Author Organization [facility] Address [address] [place] [address] Care Team Providers Care Air Analysis Engineering Technician Name Role Phone System, Provider Not In Primary Care Provider Un available Encounter Details Date Type Department Care Team (Late st Contact Info) Description 09/29/2023 Scanned Document [facility] [address] [facility] [address] [place] [phone] Leandra Herrera MD [address] [place] [address] Social History Tobacco Use Types Packs/Day Years [...] on filedocumented in this encounter Care Teams Air Analysis Engineering Technician Relationship Specialty Start Date End Date System, Provider Not In PCP - General 09/28/23 documented as of this encounter
--- OUTSIDE RECORDS SUMMARY | 2025-02-08 11:50 | XMS_ITS | Encounter Summary ---
Author Organization [facility] Address [address] [place] [address] Care Team Providers Care Rate Quoting Operator Name Role Phone Moses Fields MD Primary Care Provide r Encounter Details Date Type Department Care Team Description 03/09/2024 Social Work [facility] On[facility] Services [address] [place] [address] Kelly Cedeño MSW Social History Tobacco Use [...] on filedocumented in this encounter Care Teams Rate Quoting Operator Relationship Specialty Start Date End Date Moses Fields MD [address] [facility] [place] [address] PCP - General Internal Medicine 02/29/24 documented as of this encounter
--- OUTSIDE RECORDS SUMMARY | 2025-02-08 11:50 | XMS_ITS | Clinical Summary ---
Author Organization [facility] Address [address] [place] [address] Phone Care Team Providers Care Felt Checker Name Role Phone Moses Fields MD Primary Care Provide r Allergies Active Allergy Reactions Criticality Noted Date Comments Codeine 01/03/2018 Ibuprofen Nausea And Vomiting 01/19/2022 Oxycodone 04/07/2021 Medications meclizine (ANTIVERT) 12.5 mg tablet Take 12.5 [...] each day. Active carvediloL (COREG) 3.125 mg tabletIndication s:Cerebrovascula r accident (CVA), unspecified mechanism (CMS/HCC V24, CMS/HCC V28),Arterioscle rosis of coronary artery Take 1 tablet (3.125 mg total) by mouth 2 (two) times a day. 180 tablet 2 5 Active atorvastatin (LIPITOR) 80 mg tablet Take 1 tablet (80 mg total) by mouth 1 (one) time each day. 90 tablet 2 5 Active clopidogreL (PLAVIX) 75 mg tablet TAKE 1 TABLET BY MOUTH EVERY DAY 90 tablet 2 5 Active buPROPion SR (WELLBUTRIN SR) 100 mg 12 hr tablet Take 1 tablet (100 mg total) by mouth. 5 Active ezetimibe (ZETIA) 10 mg tablet TAKE 1 TABLET BY MOUTH EVERY DAY 90 tablet 1 5 Active isosorbide mononitrate (IMDUR) 30 mg 24 hr tablet Take 3 tablets (90 mg total) by mouth 1 (one) time each day. 270 tablet 1 5 Active metoprolol succinate (TOPROL-XL) 25 mg 24 hr tablet Take 2 tablets (50 mg total) by mouth 1 (one) time each day. 5 Active tamsulosin (FLOMAX) 0.4 mg 24 hr capsule Take 1 capsule (0.4 mg total) by mouth 1 (one) time each day with breakfast. Capsules should be taken 30 minutes following the same meal each day. Active docusate sodium (COLACE) 50 mg capsule Take 1 capsule (50 mg total) by mouth 2 (two) times a day. Active escitalopram (LEXAPRO) 20 mg tablet Take 1 tablet (20 mg total) by mouth 1 (one) time each day. Active methocarbamoL (ROBAXIN) 500 mg tablet Take 1 tablet (500 mg total) by mouth 4 (four) times a day. 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 ([facility]/HCC V24, [facility]/HCC V28) 10/29/2024 Lightheadedness 06/02/2023 Assessment & Plan (08/06/2024 2:43 [...] and differential; Future CVA (cerebral vascular accident) (CMS/HCC V24, C MS/HCC V28) 08/13/2022 Assessment & Plan (08/06/2024 2:43 PM [...] Adult-onset obesity 04/12/2022 Major depression in remission (CMS/[facility] V24) 03/25 Degeneration of intervertebral disc of lumbar re gion 04/12/2022 Overview (07/04/2024): Last Assessment & Plan: Patient is s/p L3-S1 fusion April 23, 2020. He describes acute pain in the lower thoracic/upper lumbar region of his midline back that started 3 weeks ago, no particular inciting event, he states his pain has been worsening over the last 3 weeks despite trying sdaj-[id number] pain meds like Tylenol and Motrin.He is [...] for a walker that he needs to diamond picker. His PCP gave him a prescription [...] Encounters Date Type Department Care Team Description 01/17/2025 3:15 PM EDT Office Visit 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 Hematology Oncology [address] [place] [phone] Arcelia Saini MD 12/28/2024 1:26 PM EDT - 12/28/2024 11:59 PM EDT Hospital Encounter [facility] PET Scan [address] [place] [phone] 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 (CMS/HCC V24, CMS/HCC V28) Discharge Disposition: Home or Self Care 12/27/[address] [facility] Hematology Oncology [address] [place] [phone] Ruddy Perry MD 12/20/2024 Telephone [facility] [address] [facility] [address] [place] [phone] David Christy MD Med Refill (Incoming fax [id number] Isosorbide ) 12/14/[address] [facility] Hematology Oncology [address] [place] [phone] Ruddy Perry MD 12/10/2024 9:45 AM EDT Office Visit 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 Hematology Oncology [address] [place] [phone] Ruddy Perry MD Advice Only from Last 3 Months Immunizations Name Administration Dates Next Due Moderna SARS-CoV-2 COVID-19, mRNA, LNP-S, preservative free 06/15/2021 Surgical History Surgery Date Site/Laterality Comments OTHER SURGICAL HISTORY 04/23/2020 PROCEDURE: [place] ARTHRODESIS POSTERIOR INTERBODY 1 NTRSPC LUMBAR; COMMENT: L3-S1 discectomy and fusion, Dr. Da Silva TOTAL KNEE ARTHROPLASTY Bilateral PROCEDURE: [place] ARTHRP KNE CONDYLE&PLATU MEDIAL&LAT COMPARTMENTS HIP ARTHROPLASTY Bilateral PROCEDURE: HISTORICAL HIP REPLACEMENT CHOLECYSTECTOMY 11/19/2019 PROCEDURE: HISTORICAL CHOLECYSTECTOMY OTHER SURGICAL HISTORY PROCEDURE: SPINAL FUSION, EA ADD'L INTERSPACE; COMMENT: Cervical spinal fusion OTHER SURGICAL HISTORY PROCEDURE: [place] HEMORRHOIDECTOMY INTERNAL RUBBER BAND LIGATIONS NECK SURGERY PROCEDURE:NECK SURGERY JOINT REPLACEMENT PROCEDURE:JOINT REPLACEMENT BACK SURGERY PROCEDURE:BACK SURGERY Medical History Medical History Date Comments Acute bronchitis with wheezing D X:Acute bronchitis with wheezing Difficulty swallowing solids DX: Difficulty swallowing solids Old W[place] (myocardial infarction) D X:Old [place] (myocardial infarction) HTN (hypertension) DX:HTN (hyper tension) Depression DX:Depression GERD (gastroesophageal reflu x disease) 08/11/2022 DX:GERD (gastroesophageal re flux disease) CVA (cerebral vascular accid ent) ([facility] V24, [facility] V28) 08/11/2022 DX:CVA (cerebral vascular a ccident) ([facility]) Adult-onset obesity DX:Adult-ons et obesity Degeneration of lumbar inter vertebral disc DX:Degeneration of lumbar intervertebral disc Hx of osteoarthritis DX:Hx of os teoarthritis Major depression in remissio n ([facility] V24) DX:Major depression in remis mikayla ([facility]) Severe obesity (BMI 35.0-35. 9 with comorbidity) ([facility] V24, [facility] V28) DX:Severe obesity (BMI 35.0- 35.9 with comorbidity) ([facility]) Adjustment disorder with mix ed emotional features DX:Adjustment disorder with mixed emotional features Backache DX:Backache BPPV (benign paroxysmal posi tional vertigo) DX:BPPV (benign paroxysmal p ositional vertigo) Acute urinary retention DX:Acute urinary retention Impaired mobility and ADLs DX:Im paired mobility and ADLs Left hemiplegia ([facility] V24 , [facility] V28) DX:Left hemiplegia ([facility]) Injury of back DX:Injury of maryanne k Arthritis DX:Arthritis Hypertension DX:Hypertension GERD (gastroesophageal reflu x disease) DX:GERD (gastroesophageal re flux disease) Heart disease DX:Heart disease History of kidney cancer Stroke ([facility] V24, [facility] V28) Due to cardiac catherization Family History Medical History Relation Name Comments [...] Orientation Straight 11/02/2024 1: 51 PM EDT Obstetrics History Last Filed Vital Signs Vital Sign Reading Time Taken Comments Blood Pressure 127/67 01/17/2025 3:24 PM EDT Pulse 55 01/17/2025 3:24 PM EDT Temperature 36.3 C (97.4 F) 01/17/2025 3:24 PM EDT Respiratory Rate - - Oxygen Saturation 97% 01/17/2025 3:24 PM EDT Inhaled Oxygen Concentration - - Weight 106 kg (233 lb) 01/17/2025 3:24 PM EDT Height 170.2 cm (5' 7 ) 08/06/2024 8:34 AM EST Body Mass Index 36.49 08/06/2024 8:34 AM EST Plan of Treatment Upcoming Encounters Date Type Department Care Team (Late st Contact Info) Description 07/19/2025 9:15 AM EST Office Visit [facility] Hematology Oncology [address] [place] [phone] Ruddy Perry MD [address] [place] [phone] Health Maintenance Due Date Last [...] 2024 06/15/2021, 10/20/2020, 09/22/2020 Influenza Vaccine (#1) 2025 07/05/2023 Hypertension/CHF/CAD Annual BMP Blood Test 09/12/2025 09/12/2024, 05/31/2023 RSV Immunization Adult Patients Completed 07/05/2023 HIB Vaccines Aged Out No [...] age to complete this topic Meningococcal B Vaccine Aged Out No l onger eligible based on patient's age to complete this topic RSV Immunization Patients Under 20 months Aged Out No longer eligible b ased on patient's age to complete this topic Varicella Vaccines Aged Out No longer eligible based on patient's age to complete this topic Procedures Procedure Name Priority Date/Time Associated Diagnosis Comments PET CT SKULL TO MID THIGH INITIAL Routine 12/28/2024 3:37 PM EDT 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 (CMS/HCC V24, CMS/HCC V28) CT ABDOMEN PELVIS WO CONTRAST Routine 12/03/2024 10:54 AM EDT 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 No abnormal activity associated with lucency along the inferior left side of the T9 vertebral body as clinically questioned. -------- FINAL REPORT -------- Dictated By: Robert Cruz Dictated Date: 01/03/2025 15:31 ET Assigned Physician: Robert Cruz Reviewed and Electronically Signed By: Robert Cruz Signed Date: 01/03/2025 15:41 ET Workstation ID: [id number] Transcribed By: Self Edit Transcribed Date: 01/03/2025 15:31 ET Narrative 01/03/2025 3:41 PM EDT INDICATION: Renal cell carcinoma, subsequent treatment strategy Prior relevant studies: PET/CT dated April 25, 2024. CT scan of the abdomen and pelvis from December 03, 2024 Radiopharmaceutical: 12.8 mCi of F-18 FDG IV. Blood glucose: 88 mg/dl. PROCEDURE: Routine body FDG PET-CT imaging was performed from the skull base to the proximal/mid thighs and reconstructed in axial, coronal, and sagittal planes at the computer workstation with fused data from both the PET imaging study and attenuation correction CT. The CT portion of the examination was done strictly for attenuation correction and is not a true diagnostic CT examination. CTDI: 12.64 mGy FINDINGS: HEAD AND NECK: No abnormal FDG activity. THORAX: No abnormal FDG activity. ABDOMEN/PELVIS: No abnormal FDG activity. Similar left inguinal activity with SUV max of 3.7 likely related to prior surgical repair of hernia. MUSCULOSKELETAL: No abnormal activity associated with lucency along the left inferior aspect of the T9 vertebral body. This lucency may represent a Schmorl's node. Procedure Note Robert Cruz MD - 01/03/2025 INDICATION: Renal cell carcinoma, subsequent treatment strategy Prior relevant studies: PET/CT dated April 25, 2024. CT scan of theabdomen and pelvis from December 03, 2024 Radiopharmaceutical: 12.8 mCi of F-18 FDG IV. Blood glucose: 88 mg/dl. PROCEDURE: Routine body FDG PET-CT imaging was performed from the skullbase to the proximal/mid thighs and reconstructed in axial, coronal, andsagittal planes at the computer workstation with fused data from both thePET imaging study and attenuation correction CT. The CT portion of theexamination was done strictly for attenuation correction and is not a truediagnostic CT examination. CTDI: 12.64 mGy FINDINGS: HEAD AND NECK: No abnormal FDG activity. THORAX: No abnormal FDG activity. ABDOMEN/PELVIS: No abnormal FDG activity. Similar left inguinal activitywith SUV max of 3.7 likely related to prior surgical repair of hernia. MUSCULOSKELETAL: No abnormal activity associated with lucency along theleft inferior aspect of the T9 vertebral body. This lucency may representa Schmorl's node. IMPRESSION: No PET/CT evidence of metastatic disease. No abnormal activity associatedwith lucency along the inferior left side of the T9 vertebral body asclinically questioned. -------- FINAL REPORT -------- Dictated By: Robert Cruz Dictated Date: 01/03/2025 15:31 ET Assigned Physician: Robert Cruz Reviewed and Electronically Signed By: Robert Cruz Signed Date: 01/03/2025 15:41 ET Workstation ID: [id number] Transcribed By: Self Edit Transcribed Date: 01/03/2025 15:31 ET us Ruddy Perry MD IMG NM PROCEDURES Final Res ult * CT Abdomen Pelvis wo Contrast (12/03/2024 10:54 AM EDT) Anatomical Region Laterality Modality Body Computed Tomogra phy 12/03/2024 11:1 5 AM EDT Impressions 12/03/2024 11:23 AM EDT Impression: 1. Stable left nephrectomy sequela. 2. No evidence of urinary tract calculus or obstruction. No significant change. Telerad NITA ([id number]) -------- FINAL REPORT -------- Dictated By: Andreia Collins Dictated Date: 12/03/2024 11:15 ET Assigned Physician: Andreia Collins Reviewed and Electronically Signed By: Andreia Colilns Signed Date: 12/03/2024 11:23 ET Workstation ID: [id number] Transcribed By: Self Edit Transcribed Date: 12/03/2024 11:15 ET Narrative 12/03/2024 11:23 AM EDT History: Right flank pain. Personal history of left renal carcinoma, stage I, status post left radical nephrectomy on 10/24/23. Comparison: 02/14/24 ([facility], [place], [place]) Technique: Helical volumetric imaging of the abdomen and pelvis was performed following oral contrast. DLP: 1876.35 mGy/cm TASS Iterative reconstruction technique Findings: Left nephrectomy sequela are again noted. No abnormal mass or fluid collection is seen within the nephrectomy bed. The remaining right kidney is normal in position and size. No renal or ureteral calculi are identified and there is no hydronephrosis. Note that the right ureterovesical junction is obscured by artifact arising from bilateral total hip prostheses. No suspicious developing solid renal mass is seen by noncontrast CT analysis. The unenhanced liver, spleen, pancreas and adrenal glands are unremarkable. Cholecystectomy sequela are noted. No evidence of biliary obstruction is seen. No ascites is seen. There is no developing lymphadenopathy. The abdominal aorta is normal in caliber. The prostate and seminal vesicles are partially obscured by artifact from the hip prostheses. The visualized portions of the urinary bladder appear normal. No evidence of bowel obstruction is seen. Enteric contrast given for the study has reached the rectum. The appendix is normal in caliber in the right lower quadrant. No abnormal perienteric or pericolonic fat stranding is seen. Bilateral total hip prostheses are partially imaged. Discectomy sequela are noted in the lumbar spine at L3-L4, L4-L5 and L5-S1. Posterior fusion hardware is also present at these levels. No suspicious osseous destructive lesion is seen. Procedure Note Andreia Collins MD - 12/03/2024 History: Right flank pain. Personal history of left renal carcinoma, stageI, status post left radical nephrectomy on 10/24/23. Comparison: 02/14/24 ([place], [place]) Technique: Helical volumetric imaging of the abdomen and pelvis wasperformed following oral contrast. DLP: 1876.35 mGy/cm Sightlyer Iterative reconstruction technique Findings: Left nephrectomy sequela are again noted. No abnormal mass or fluidcollection is seen within the nephrectomy bed. The remaining right kidney is normal in position and size. No renal orureteral calculi are identified and there is no hydronephrosis. Note thatthe right ureterovesical junction is obscured by artifact arising frombilateral total hip prostheses. No suspicious developing solid renal massis seen by noncontrast CT analysis. The unenhanced liver, spleen, pancreas and adrenal glands areunremarkable. Cholecystectomy sequela are noted. No evidence of biliaryobstruction is seen. No ascites is seen. There is no developing lymphadenopathy. The abdominalaorta is normal in caliber. The prostate and seminal vesicles are partially obscured by artifact fromthe hip prostheses. The visualized portions of the urinary bladder appearnormal. No evidence of bowel obstruction is seen. Enteric contrast given for thestudy has reached the rectum. The appendix is normal in caliber in theright lower quadrant. No abnormal perienteric or pericolonic fat strandingis seen. Bilateral total hip prostheses are partially imaged. Discectomy sequelaare noted in the lumbar spine at L3-L4, L4-L5 and L5-S1. Posterior fusionhardware is also present at these levels. No suspicious osseousdestructive lesion is seen. IMPRESSION: Impression: 1. Stable left nephrectomy sequela. 2. No evidence of urinary tract calculus or obstruction. No significant change. Telerad NITA ([id number]) -------- FINAL REPORT -------- Dictated By: Andreia Collins Dictated Date: 12/03/2024 11:15 ET Assigned Physician: Andreia Collins Reviewed and Electronically Signed By: Andreia Collins Signed Date: 12/03/2024 11:23 ET Workstation ID: [id number] Transcribed By: Self Edit Transcribed Date: 12/03/2024 11:15 ET Ruddy Perry MD IMG CT PROCEDURES Final Res ult * (ABNORMAL) Basic metabolic panel (09/12/2024 10:55 AM EST) Sodium 141 133 - 145 mmol/L LAB CHEMISTRY METHOD 09/12/2024 11:58 AM [facility] Potassium 4.6 3.5 - 5.5 mmol/L LAB CHEMISTRY METHOD 09/12/2024 11:58 AM [facility] Chloride 108 96 - 110 mmol/L LAB CHEMISTRY METHOD 09/12/2024 11:58 AM [facility] CO2 26 21 - 32 mmol/L LAB CHEMISTRY METHOD 09/12/2024 11:58 AM [facility] Anion Gap 7 3 - 11 LAB CHEMISTRY METHOD 09/12/2024 11:58 AM [facility] Glucose 105(H) 70 - 100 mg/dL LAB CHEMISTRY METHOD 09/12/2024 11:58 AM [facility] BUN 21 5 - 25 mg/dL LAB CHEMISTRY METHOD 09/12/2024 11:58 AM [facility] Creatinine 1.76(H) 0.70 - 1.30 mg/dL LAB CHEMISTRY METHOD 09/12/2024 11:58 AM EST [facility] eGFR 41(L) >=60 mL/min/1. 73m2 LAB CHEMISTRY METHOD 09/12/2024 11:58 AM EST [facility] Comment:Calculation based on the Chronic Kidney Disease Epidemiology Collaboration (CKD-EPI) equation refit without adjustment for race. BUN/Creatinine Ratio 11.9 LAB CHEMISTRY METHOD 09/12/2024 11:58 AM EST [facility] Calcium 8.6 8.5 - 10.5 mg/dL LAB CHEMISTRY METHOD 09/12/2024 11:58 AM [facility] Blood Venous blood specimen / Unknown Venipuncture / Unknown 09/12/2024 10:55 AM EST 09/12/2024 11:24 AM EST Mariluz Kan CARDIOVASCULAR RADIOLOGIC TECHNOLOGIST LAB BLOOD ORDERABLES F inal Result [facility] [address] [place] [address], from Last 3 Months or Most Recently Relevant to Health Maintenance [place] [id number] MEDICARE [facility] Advance Directives Documents on File Type Date Recorded Patient Junior Bookkeeper Expl anation Health Care Decision (hx) 10/27/2023 AD LONGO DIRECTIVE Health Care Decision (hx) 10/27/2023 AD LONGO DIRECTIVE Health Care Decision (hx) 10/27/2023 AD LONGO DIRECTIVE Care Teams Felt Checker Relationship Specialty Start Date End Date Moses Fields MD [address] [place] [address] PCP - General Internal Medicine 05/17/22
--- OUTSIDE RECORDS SUMMARY | 2025-02-08 11:50 | XMS_ITS | Clinical Summary ---
Author Organization [facility] Address [address] [phone] Phone Care Team Providers Care Dispatcher Tow Truck Name Role Phone Moses Fields MD Primary [...] Take 100 mg by mouth 12/20/2023 Active aspirin (ST ROB) 81 MG EC tablet Take 81 mg by mouth 1 (one) time each day Active clopidogrel (PLAVIX) 75 MG tablet Take 75 mg by mouth 1 (one) time each day Active buPROPion SR (WELLBUTRIN SR) 100 MG 12 hr tablet Take 100 mg by mouth 1 (one) time each day in the morning 08/31/2024 Active Active Problems Problem Noted Date Diagnosed [...] Trochanteric bursitis of left hip 11/04/2020 Immunizations Immunization Administration Dates Next Due Moderna SARS-COV-2 06/15/2021,10/20/2020 [...] Sign Reading Time Taken Comments Blood Pressure 104/68 10/15/2024 2:45 PM EDT Pulse 73 10/15/2024 2:45 PM EDT Temperature - - Respiratory Rate - - Oxygen Saturation 97% 04/17/2024 3:29 PM EDT Inhaled Oxygen Concentration - - Weight 106 kg (233 lb) 10/15/2024 2:45 PM EDT Height - - Body Mass Index - - Plan of Treatment Upcoming Encounters Date Type Department Care Team (Late st Contact Info) Description 02/22/2025 Orders Only [facility] [address] [phone] Asa EstephaniaREILLY [address] [phone] Stage 3a chronic kidney disease (HCC); History of nephrectomy 04/17/2025 1:30 PM EDT Office Visit [facility] [address] [phone] Sky Guadarrama MD [address] [phone] Health Maintenance Due Date Last Done Comments Colorectal Cancer Screening: Annual FOBT 2004 Colorectal Cancer Screening: Colonoscopy 2004 Colorectal Cancer Screening: Sigmoidoscopy 2004 Pneumococcal Vaccine: 50+ Ye ars (2 of 2 - PCV) 08/01/2018 08/01/2017 Influenza Vaccine (#1) 2025 Pneumococcal Vaccine: Peds ( 0 to 5 Years) and At-Risk Patients (6 to 49 Years) Discontinued 08/01/2017 Hepatitis B Vaccine Aged Out No longe r eligible based on patient's age to complete this topic Insurance [facility] Medicare [facility] Medicare [facility] Care Teams Dispatcher Tow Truck Relationship Specialty Start Date End Date Moses Fields MD [address] [place], [place] PCP - General Internal Medicine 01/06/24
--- NOTE | 2025-02-08 12:01 | A.SPINEOV_ITS ---
Intake Visit Reasons: left leg numbness Intake Note: Mr. Cota is here today c/o left leg pain. Residential Collections Required: No Allergies ibuprofen (From Motrin) Allergy (Unknown, Verified 02/08/25 12:01) Vomiting oxycodone Allergy (Unknown, Verified 02/08/25 12:01) Nausea codeine Adverse Reaction (Mild, Verified 02/08/25 12:01) Gastrointestinal Upset Assessment & Plan Assessment & Plan (1) Lumbar degenerative disc disease: Code(s): M51.369 - Other intervertebral disc degeneration, lumbar region without mention of lumbar back pain or lower extremity pain Category: Medical Plan Mr Cota is a patient well known to us from our previous practice at [facility] where he underwent multiple level instrumented lumbar fusion. Unfortunately the surgery is never gave him great relief in terms of the back pain and his leg pain. He was in the emergency room at [facility] last weekend with numbness of his right leg. It is just intermittent and will go away at times. He still has persistent pain down the legs that never really got better. On exam he is sitting in a wheelchair. He is able to demonstrate full strength of bilateral lower extremities. Absent reflexes in the lower extremities. We had a lengthy discussion about the fact that most likely what hakan welsh has been dealing with here is just postoperative lumbar radiculitis which did not respond to surgery. He has not had any recent imaging I believe in the last year to so I am happy to reassess to see if he has adjacent segment disease and exclude that. Total amount of time spent in this visit was 20 minutes in discussion of symptoms, ordering imaging results and subsequent plan of care Hai Da Silva MD,PhD [facility] Orders: Orders MR lumbar spine wo con Today M51.369 - Other intervertebral disc degeneration, lumbar region without mention of lumbar back pain or lower extremity pain Coding Level of Care Code Est Pt Level 3 (08480) Diagnoses Lumbar degenerative disc disease M51.369
== END 2025-02-08 12:29 | disposition home or self-care (01) ==
LOC: HO.HNS 11:24
PROVIDERS: PCP Internal Medicine; Visit Provider Physician Assistant
DX: M51.369 Other intervertebral disc degeneration, lumbar region without mention of lumbar back pain or lower extremity pain (principal)
CPT/HCPCS: 99213

== ENCOUNTER → 2025-02-08 11:23 | Outpatient (BNVA) | payer MEDICARE, SELFPAY | PROVIDERS: PCP Internal Medicine; Visit Provider Physician Assistant | DX: M51.369 Other intervertebral disc degeneration, lumbar region without mention of lumbar back pain or lower extremity pain (principal) | CPT/HCPCS: 99212 ==

== ENCOUNTER 2025-02-16 14:56 | Outpatient (REF) | payer MEDICARE, SELFPAY ==
--- NOTE | ~2025-02-16 | MR_ITS ---
CLINICAL HISTORY: M51.369 - Other intervertebral disc degeneration, lumbar region without ... Exam: MRI lumbar spine without IV contrast Comparison: None Findings: Incomplete exam as patient was unable to complete the scan, axial T2 was not performed. Lumbar spine alignment is normal. No acute fracture or suspicious osseous lesion. Status post L3 to S1 spinal instrumentation, including discectomy with interbody disc spacer placement L3-4, L4-5, anterior fusion L5-S1, posterior stabilization with pedicle screws and vertical rods L3-S1 bilaterally, the blooming artifacts from hardware mildly distorted neighboring field, suboptimal evaluation of the adjacent osseous structures and soft tissue, the hardwares are intact. T1 hypointense and T2 hyperintense signals likely edema or fibrosis of paraspinal musculature at the surgical level with additional fatty infiltrates. Multilevel bridging prevertebral osteophytes. Conus medullaris terminates at L1, normal morphology. Imaged abdominal contents demonstrate no acute finding. Left kidney is not seen. T12-L1: Normal disc. No central canal stenosis or foraminal narrowing. Normal facets. L1-2: Minimal diffuse posterior disc bulge. No central canal stenosis or foraminal narrowing. Unremarkable facets. L2-3: Disc desiccation, mild disc bulge from bilateral foraminal region extending laterally. Hypertrophy of the ligamentum flavum, facet arthrosis. There is mild central canal stenosis, moderate left and mild right foraminal narrowing. L3-4: Surgical level. No central canal stenosis or foraminal narrowing. Mild facet arthrosis. L4-5: Surgical level. Posterior central focal protrusion of the disklike material 2 mm. No central canal stenosis or foraminal narrowing. Facet hypertrophy. L5-S1: Surgical level. Mild diffuse annular disklike bulge and osteophyte complex, facet hypertrophy bilaterally, no central canal stenosis, mild left and moderate right foraminal narrowing due to disc osteophyte complex. Impression: Postsurgical and degenerative changes of lumbar spine, no acute hardware complication or high-grade central canal stenosis. Absent left kidney. This document has been electronically signed by: Lali Boyd MD on 02/19/2025 15:22:33
--- OUTSIDE RECORDS SUMMARY | 2025-02-16 15:00 | XMS_ITS | Clinical Summary ---
Author Organization [facility] Address [address] [phone] Phone Care Team Providers Care Regional Flatbed Truck Driver Name Role Phone Moses Fields MD Primary [...] Orders Only [facility] [address] [phone] Asa EstephaniaREILLY [address] [phone] Stage 3a chronic kidney disease (HCC); History of nephrectomy 04/17/2025 1:30 PM EDT Office Visit [facility] [address] [phone] Sky Guadarrama MD [address] [phone] Health Maintenance Due Date Last [...] patient's age to complete this topic Insurance [facility] Medicare [facility] Medicare [facility] Care Teams Regional Flatbed Truck Driver Relationship Specialty Start Date End Date Moses Fields MD [address] [place], [place] PCP - General Internal Medicine 01/06/24
--- OUTSIDE RECORDS SUMMARY | 2025-02-16 15:00 | XMS_ITS | Encounter Summary ---
Author Organization [facility] Address [address] [place] [id number] Care Team Providers Care Cnc Operator Name Role Phone System, Provider Not In Primary Care Provider Un available Encounter Details Date Type Department Care Team (Late st Contact Info) Description 09/29/2023 Scanned Document [facility] [address] [place] [phone] Leandra Herrera MD [address] [place] [address] Social History Tobacco Use Types Packs/Day Years [...] on filedocumented in this encounter Care Teams Cnc Operator Relationship Specialty Start Date End Date System, Provider Not In PCP - General 09/28/23 documented as of this encounter
--- OUTSIDE RECORDS SUMMARY | 2025-02-16 15:00 | XMS_ITS | Clinical Summary ---
Author Organization [facility] Address [address] [place] [address] Phone Care Team Providers Care Instructor Physical Name Role Phone Moses Fields MD Primary [...] with metastasis from kidney to other site ([facility]/HCC V24, [facility]/HCC V28) 10/29/2024 Lightheadedness 06/02/2023 Assessment & Plan [...] Adult-onset obesity 04/12/2022 Major depression in remission (CMS/[facility] V24) 03/25 Degeneration of intervertebral disc of lumbar re gion 04/12/2022 Overview (07/04/2024): Last Assessment & Plan: Patient is s/p L3-S1 fusion April 23, 2020. 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 (CMS/HCC V24, CMS/HCC V28) (Primary Dx) 01/08/2025 Telephone [facility] Hematology Oncology [address] [place] [phone] Arcelia Saini MD 12/28/2024 1:26 PM EDT - 12/28/2024 11:59 PM EDT Hospital Encounter [facility] PET Scan [address] [place] [phone] 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 (CMS/HCC V24, CMS/HCC V28) Discharge Disposition: Home or Self Care 12/27/2024 Telephone [facility] Hematology Oncology [address] [place] [phone] Ruddy Perry MD 12/20/2024 Telephone [facility] [address] [facility] [address] [place] [phone] David Christy MD Med Refill (Incoming fax [id number] Isosorbide ) 12/14/2024 Telephone [facility] Hematology Oncology [address] [place] [phone] Ruddy Perry MD 12/10/2024 9:45 AM EDT Office Visit [facility] Hematology Oncology [address] [place] [phone] Ruddy Perry MD 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 ([facility] V24, [facility] V28) (Primary Dx) 12/03/2024 10:41 AM EDT - 12/03/2024 11:59 PM EDT Hospital Encounter [facility] CT Scan [address] [place] [phone] 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 Da Silva TOTAL KNEE ARTHROPLASTY Bilateral PROCEDURE: TN ARTHRP KNE CONDYLE&PLATU MEDIAL&LAT COMPARTMENTS HIP ARTHROPLASTY Bilateral PROCEDURE: HISTORICAL HIP REPLACEMENT CHOLECYSTECTOMY 11/19/2019 PROCEDURE: HISTORICAL CHOLECYSTECTOMY OTHER SURGICAL HISTORY PROCEDURE: SPINAL FUSION, EA ADD'L INTERSPACE; COMMENT: Cervical spinal fusion OTHER SURGICAL HISTORY PROCEDURE: TN HEMORRHOIDECTOMY INTERNAL RUBBER BAND LIGATIONS NECK SURGERY PROCEDURE:NECK SURGERY JOINT REPLACEMENT PROCEDURE:JOINT REPLACEMENT BACK SURGERY PROCEDURE:BACK SURGERY Medical History Medical History Date Comments Acute bronchitis with wheezing D X:Acute bronchitis with wheezing Difficulty swallowing solids DX: Difficulty swallowing solids Old SD (myocardial infarction) D X:Old SD (myocardial infarction) HTN (hypertension) DX:HTN (hyper tension) Depression DX:Depression GERD (gastroesophageal reflu x disease) 08/11/2022 DX:GERD (gastroesophageal re flux disease) CVA (cerebral vascular accid ent) ([facility] V24, [facility] V28) 08/11/2022 DX:CVA (cerebral vascular a ccident) ([facility]) Adult-onset obesity DX:Adult-ons et obesity Degeneration of lumbar inter vertebral disc DX:Degeneration of lumbar intervertebral disc Hx of osteoarthritis DX:Hx of os teoarthritis Major depression in remissio n ([facility] V24) DX:Major depression in remis mikayla ([facility]) Severe obesity (BMI 35.0-35. 9 with comorbidity) ([facility] V24, [facility] V28) DX:Severe obesity (BMI 35.0- 35.9 with comorbidity) ([facility]) Adjustment disorder with mix ed emotional features DX:Adjustment disorder with mixed emotional features Backache DX:Backache BPPV (benign paroxysmal posi tional vertigo) DX:BPPV (benign paroxysmal p ositional vertigo) Acute urinary retention DX:Acute urinary retention Impaired mobility and ADLs DX:Im paired mobility and ADLs Left hemiplegia ([facility] V24 , [facility] V28) DX:Left hemiplegia ([facility]) Injury of back DX:Injury of maryanne k Arthritis DX:Arthritis Hypertension DX:Hypertension GERD (gastroesophageal reflu x disease) DX:GERD (gastroesophageal re flux disease) Heart disease DX:Heart disease History of kidney cancer Stroke ([facility] V24, [facility] V28) Due to cardiac catherization Family History [...] Description 07/19/2025 9:15 AM EST Office Visit [facility] Hematology Oncology [address] [place] [phone] Ruddy Perry MD [address] [place] [phone] Health Maintenance Due Date Last [...] Panel) 07/03/2022 Colorectal Cancer Screening: Colonoscopy 07/03/2022 Falls Risk Assessment 07/03/2022 Hepatitis C Screening 07/03/2022 Medicare Annual Wellness Visit 07/03/2022 Social Influencers of Health Screening 07/03/2022 COVID-19 Vaccine (4 - 2023-2 5 season) 2024 06/15/2021, 10/20/2020, 09/22/2020 Depression Screening 07/25/2024 Influenza Vaccine (#1) 2025 07/05/2023 Hypertension/CHF/CAD Annual [...] Signed Date: 01/03/2025 15:41 ET Workstation ID: [id number] Transcribed By: Self Edit Transcribed Date: 01/03/2025 [...] Signed Date: 01/03/2025 15:41 ET Workstation ID: [id number] Transcribed By: Self Edit Transcribed Date: 01/03/2025 [...] or obstruction. No significant change. Telerad NITA ([id number]) -------- FINAL REPORT -------- Dictated By: Andreia Collins Dictated Date: 12/03/2024 11:15 ET Assigned Physician: Andreia Collins Reviewed and Electronically Signed By: Andreia Collins Signed Date: 12/03/2024 11:23 ET Workstation ID: [id number] Transcribed By: Self Edit Transcribed Date: 12/03/2024 11:15 ET Narrative 12/03/2024 11:23 AM EDT History: Right flank pain. Personal history of left renal carcinoma, stage I, status post left radical nephrectomy on 10/24/23. Comparison: 02/14/24 ([facility], [place], [place]) Technique: Helical volumetric imaging of the abdomen and pelvis was performed following oral contrast. DLP: 1876.35 mGy/cm STYLHUNT Iterative reconstruction technique Findings: Left nephrectomy sequela [...] left radical nephrectomy on 10/24/23. Comparison: 02/14/24 ([place], [place]) Technique: Helical volumetric imaging of the abdomen and pelvis wasperformed following oral contrast. DLP: 1876.35 mGy/cm Excordaer Iterative reconstruction technique Findings: Left nephrectomy sequela [...] or obstruction. No significant change. Telerad NITA ([id number]) -------- FINAL REPORT -------- Dictated By: Andreia Collins Dictated Date: 12/03/2024 11:15 ET Assigned Physician: Andreia Collins Reviewed and Electronically Signed By: Andreia Collins Signed Date: 12/03/2024 11:23 ET Workstation ID: [id number] Transcribed By: Self Edit Transcribed Date: 12/03/2024 11:15 ET Ruddy Perry MD IMG CT PROCEDURES Final Res ult * (ABNORMAL) Basic metabolic panel (09/12/2024 10:55 AM EST) Sodium 141 133 - 145 mmol/L LAB CHEMISTRY METHOD 09/12/2024 11:58 AM [facility] Potassium 4.6 3.5 - 5.5 mmol/L LAB CHEMISTRY METHOD 09/12/2024 11:58 AM [facility] Chloride 108 96 - 110 mmol/L LAB CHEMISTRY METHOD 09/12/2024 11:58 AM [facility] CO2 26 21 - 32 mmol/L LAB CHEMISTRY METHOD 09/12/2024 11:58 AM [facility] Anion Gap 7 3 - 11 LAB CHEMISTRY METHOD 09/12/2024 11:58 AM [facility] Glucose 105(H) 70 - 100 mg/dL LAB CHEMISTRY METHOD 09/12/2024 11:58 AM [facility] BUN 21 5 - 25 mg/dL LAB CHEMISTRY METHOD 09/12/2024 11:58 AM [facility] Creatinine 1.76(H) 0.70 - 1.30 mg/dL LAB CHEMISTRY METHOD 09/12/2024 11:58 AM EST [facility] eGFR 41(L) >=60 mL/min/1. 73m2 LAB CHEMISTRY METHOD 09/12/2024 11:58 AM EST [facility] Comment:Calculation based on the Chronic Kidney Disease Epidemiology Collaboration (CKD-EPI) equation refit without adjustment for race. BUN/Creatinine Ratio 11.9 LAB CHEMISTRY METHOD 09/12/2024 11:58 AM EST [facility] Calcium 8.6 8.5 - 10.5 mg/dL LAB CHEMISTRY METHOD 09/12/2024 11:58 AM [facility] Blood Venous blood specimen / Unknown Venipuncture / Unknown 09/12/2024 10:55 AM EST 09/12/2024 11:24 AM EST Mariluz Kan INSULATOR CUTTER AND FORMER LAB BLOOD ORDERABLES F inal Result [facility] [address] [place] [address], from Last 3 Months or Most Recently Relevant to Health Maintenance Insurance [place] [id number] MEDICARE [facility] Advance Directives Documents on File Type Date Recorded Patient Honing Machine Operator Production Expl anation Health Care Decision (hx) 10/27/2023 AD LONGO DIRECTIVE Health Care Decision (hx) 10/27/2023 AD LONGO DIRECTIVE Health Care Decision (hx) 10/27/2023 AD LONGO DIRECTIVE Care Teams Instructor Physical Relationship Specialty Start Date End Date Moses Fields MD [address] [place] [address] PCP - General Internal Medicine 05/17/22
--- OUTSIDE RECORDS SUMMARY | 2025-02-16 15:00 | XMS_ITS | Encounter Summary ---
Author Organization [facility] Address [address] [place] [address] Care Team Providers Care Manager Field Services Name Role Phone Moses Fields MD Primary Care Provide r Encounter Details Date Type Department Care Team Description 03/09/2024 Social Work [facility] Oncology Services [address] [place] [address] Kelly Cedeño MSW Social History Tobacco Use [...] on filedocumented in this encounter Care Teams Manager Field Services Relationship Specialty Start Date End Date Moses Fields MD [address] [facility] [place] [address] PCP - General Internal Medicine 02/29/24 documented as of this encounter
== END 2025-02-16 14:57 | disposition home or self-care (01) ==
LOC: HO.MRI 14:56
PROVIDERS: PCP Internal Medicine; Visit Provider Physician Assistant
DX: M51.369 Other intervertebral disc degeneration, lumbar region without mention of lumbar back pain or lower extremity pain (principal)
CPT/HCPCS: 72148

== ENCOUNTER 2025-02-16 15:37 | Inpatient (IN) | payer MEDICARE, SELFPAY ==
[2025-02-16] VITALS (9 sets, daily range): BP systolic 96–112; BP diastolic 53–64; PULSE 47–68; RESP 12–18; TEMP 36.4; O2SAT 95–96; BMI 37.7; BMI 38.0
--- NOTE | ~2025-02-16 | CT_ITS ---
CLINICAL HISTORY: SOB CP, h o immobility, r o PE --- Additional Notes or Special Instructions: creatinine 1.65 CT angiography chest with contrast. 3D Postprocessing. Comparison: CT - CT ANGIO CHEST PE PROTOCOL - 02/16/25 16:54 EDT Findings: The heart size is normal. RV/LV ratio is normal. The thoracic aorta is normal caliber. No pulmonary artery filling defects. The visualized thyroid and mediastinum are unremarkable. Mild bibasilar predominant ground-glass pulmonary opacity. The visualized upper abdomen is unremarkable. The bones are intact. IMPRESSION: 1. No pulmonary embolus. 2. Mild atypical pneumonia. This document has been electronically signed by: Danielito Salmon MD on 02/16/2025 18:16:54
--- NOTE | ~2025-02-16 | XR_ITS ---
CLINICAL HISTORY: cp 2 view chest x-ray Comparison: None provided Findings: The lungs are clear. Heart size is normal. No acute fracture. IMPRESSION: 1. No acute findings. This document has been electronically signed by: Danielito Salmon MD on 02/16/2025 16:28:51
--- NOTE | 2025-02-16 15:39 | ECG_ITS ---
Test Reason : CP Blood Pressure : */* mmHG Vent. Rate : 56 BPM Atrial Rate : 56 BPM P-R Int : 156 ms QRS Dur : 88 ms QT Int : 444 ms P-R-T Axes : 24 61 9 degrees QTcB Int : 428 ms Sinus bradycardia Otherwise normal ECG No previous ECGs available Referred By: Generic ED Physician Electronically Signed By: Isaac Pacheco
[2025-02-16 16:08] LABS: MANUAL DIFF FLAG NO
[2025-02-16 16:13] LABS: Hematocrit 43.9 % (42.0-52.0); Hemoglobin 14.4 g/dl (14.0-18.0); Imm Gran Abs Auto 0.05 X10*3/uL (0.00-0.03); Imm Gran Pct Auto 0.6 % (0.0-0.4); Lymphocytes Absolute Auto 1.8 X10*3/uL (1.2-4.9); Mean Corpuscular HGB Conc 32.8 g/dl (31.0-36.0); Mean Corpuscular Hemoglobin 29.1 pg (27.0-33.0); Mean Corpuscular Volume 88.9 fL (80.0-98.0); NRBC Abs Auto 0.000 X10*3/uL (0.0-0.012); NRBC Pct Auto 0.0 /100WBC (0.0-0.2); Platelet Count 257 X10*3/uL (160-400); Red Blood Count 4.94 X10*6/uL (4.60-5.80); White Blood Count 8.7 X10*3/uL (4.8-10.8)
[2025-02-16 16:19] LABS: INTERNATIONAL NORM RATIO 1.1 (0.9-1.1); Prothrombin Time 12.4 SEC (10.9-12.4)
--- NOTE | 2025-02-16 16:26 | ED_ITS ---
HPI - Chest Pain General Chief Complaint: Chest Pain Stated Complaint: brought down [facility] MRI Time Seen by Provider: 02/16/25 15:43 Source: patient Mode of arrival: ambulatory Limitations: no limitations History of Present Illness ED Provider: Cindy Lindsay APRN HPI narrative: 69-year-old male with a history of coronary artery disease with stenting on dual platelet therapy, chronic lower back pain, hypertension, hyperlipidemia, RCC s/p resection here with complaints of left-sided chest pain which began while he was lying down in the MRI machine just prior to arrival. Patient reports that he has a history of chronic lower back pain and recently developed increasing pain and numbness and radiation of pain down the right leg. He had plans for an outpatient MRI w/o contrast which he has had before. He has been less active and more mobile lately due to pain. He has been experiencing some exertional shortness of breath recently. After walking into MRI today and laying down he developed sharp left-sided chest pain with radiation to the left arm with associated shortness of breath and diaphoresis. He did not feel anxious at this time. He does have a history of anxiety and has experienced panic attacks before but does not feel that this is similar. On arrival he continues to have some left-sided chest pain for reports it is improved since earlier. He also reports some dizziness with position changes. He denies any leg swelling or leg pain. No fevers or chills. No recent URI symptoms. He is followed by Dr. Christy at [facility]. MD complaint: chest pain Related Data Home Medications ?Medication ?Instructions ?Recorded ?Confirmed aspirin 81 mg tablet,delayed 81 mg PO DAILY 08/20/21 0 12/25/24 release atorvastatin 80 mg tablet (Lipitor) 80 mg PO DAILY 12/25/24 buspirone 10 mg tablet 10 mg PO BID 07/21/23 carvedilol 3.125 mg tablet 3.125 mg PO BID 07/21/23 clopidogrel 75 mg tablet 75 mg PO DAILY 07/21/2310/16 isosorbide mononitrate 30 mg 30 mg PO BID 07/21/2310/16 tablet,extended release 24 hr meclizine 12.5 mg tablet 12.5 mg PO TID 08/30/2310/16 bupropion HCl 100 mg tablet,12 hr 100 mg PO QAM 12/25/24 sustained-release cholecalciferol (vitamin D3) 25 25 mcg PO DAILY 12/25/24 mcg (1,000 unit) capsule ezetimibe 10 mg tablet 10 mg PO DAILY 12/25/2410/16 tamsulosin 0.4 mg capsule mg PO 12/25/24 12/25/24 Allergies Allergy/AdvReac Type Severity Reaction Status Date / Time ibuprofen (From Motrin) Allergy Unknown Vomiting Verified 02/16/25 15:43 oxycodone Allergy Unknown Nausea Verified 02/16/25 15:43 codeine AdvReac Mild Gastrointestinal Verified 02/16/25 15:43 Upset Review of Systems 2 Review of Systems: Yes all other systems are reviewed and are negative Constitutional: Constitutional: Reports no additional constitutional complaints, Denies body ache(s), Denies chills, Denies fever(s), Denies headache(s) and Denies weakness Eyes: Eyes: Reports no additional eye complaints and Denies change in vision ENT: Reports system reviewed and no additional complaints, except as documented, Denies dizziness, Denies headache(s), Denies nasal congestion, Denies nasal discharge and Denies neck pain Cardiovascular: Cardiovascular: Reports no additional cardiovascular complaints, Reports chest pain, Denies leg edema and Reports dyspnea Respiratory: Respiratory: Reports no additional respiratory complaints, Denies cough and Reports dyspnea Gastrointestinal: Gastrointestinal: Reports no additional gastrointestinal complaints, Denies abdominal pain, Denies diarrhea, Denies nausea and Denies vomiting Genitourinary: Genitourinary: Denies urinary incontinence Musculoskeletal: Musculoskeletal: Reports no additional musculoskeletal complaints, Denies back pain, Denies arthralgias, Denies joint swelling, Denies neck pain, Denies numbness and Denies tingling Integumentary/Breasts: Skin/Breast: Reports system reviewed and no additional complaints, except as docu and Denies rash Neurologic: Reports system reviewed and no additional complaints, except as documented, Denies Abnormal speech present, Denies dizziness, Denies headache(s), Denies numbness, Denies tingling and Denies weakness FOR[facility]LY [facility], [facility] Past Medical History Attestation statement: The following information was validated with the patient. Source: old records reviewed and nursing notes reviewed Medical History Major depression in remission Hypertension Hyperlipidemia Encephalopathy Degeneration of lumbar intervertebral disc Coronary arteriosclerosis CAD in [place] artery Cervical spondylosis Adjustment disorder Hypersomnia Snoring Obesity Spondylosis BPPV (benign paroxysmal positional vertigo) Myocardial infarction Surgical History H/O hemorrhoidectomy Hx of fusion of cervical spine (~2004) Hx laparoscopic cholecystectomy (~10/2019) History of hip surgery History of knee replacement Hx of cholecystectomy Family History Family History Father CAD (coronary artery disease) Hyperlipidemia Mother CAD (coronary artery disease) Hyperlipidemia Social History Social History Alcohol intake: current Alcohol intake frequency: a few times a week Alcohol type: wine Patient Tobacco Use Status: Never used Tobacco Smoked in Last 30 Days: No Use of substances other than those prescribed or required for medical reasons: No Advance Directives: No Advance Directives Information Provided: No Physical Exam 2 Vital Signs: Vital Signs: Last Vital Signs Temp 97.6 F 02/16/25 15:40 Pulse 68 02/16/25 16:28 Resp 16 02/16/25 15:40 BP 110/63 02/16/25 17:36 Pulse Ox 96 02/16/25 15:40 O2 Del Method Room Air 02/16/25 15:40 BMI result Body Mass Index 37.7 Const: General: cooperative, healthy appearing, comfortable and no acute distress Orientation/consciousness: patient oriented x3 Limitations: no limitations HEENT: Head: Yes normal to inspection Ears: hearing grossly normal bilaterally General nose exam: Normal external nose present Face and sinus: Yes normal facial exam Mouth: Normal oral and palatal mucosa present Throat: Yes posterior oropharynx normal Eyes: General: appearance normal, both eyes and all related structures P upils: Equal, round and reactive pupils present Neck: Neck: Yes normal visual inspection Chest: Chest palpation & inspection: normal inspection of the chest Resp: Effort & Inspection: normal respiratory effort Auscultation: clear to auscultation bilaterally Cardio: Rate: regular rate Rhythm: regular rhythm Peripheral pulses: P eripheral pulses 2+ throughout GI: Inspection: Yes normal to inspection Palpation (GI): Soft to palpation and nontender Auscultation: normal bowel sounds Back/Spine/Pelvis: Thoracic/Lumbar Spine: thoracic and lumbar spine normal to inspection Skin: General skin exam: no rashes or lesions noted Neuro: General: patient oriented x3, no focal motor deficits and normal sensation to monofilament Cranial nerves: Yes Equal, round and reactive pupils present Cognition (Neuro): normal cognition Speech: No Abnormal speech present Gait exam (Neuro): Normal gait present Motor exam (neuro): 5/5 motor strength present throughout Extrem: General: Yes normal to inspection, Yes no calf tenderness and No pedal edema Course Course Course Narrative: 1640-Orthostatics negative. Consider PE d/t recent immobility d/t back pain therefore a CTA was ordered to r/o PE. Patient will receive 1L NS. Reevaluation(s) Reevaluation #1: 1830-Ct shows atypical pneumonia. Patient has no URI symptoms. No complaints of fever. I do not think that he has pneumonia. No need for treatment. Medications Administered Discontinued Medications Generic Name Dose Route Start Last Admin Trade Name Sudheer PRN Reason Stop Dose Admin Acetaminophen 975 mg 02/16/25 15:58 02/16/25 16:31 Acetaminophen 325 Mg Tablet PO 02/16/25 15:59 975 mg ONCE ONE Administration Aspirin 243 mg 02/16/25 15:58 02/16/25 16:31 Aspirin 81 Mg Tab.Chew PO 02/16/25 15:59 243 mg ONCE ONE Administration Sodium Chloride 1,000 mls @ 999 mls/hr 02/16/25 15:58 02/16/25 16:31 Ns IV 02/16/25 16:58 999 mls/hr .Q1H1M STA Administration Iohexol 65 ml 02/16/25 17:19 02/16/25 17:19 Iohexol 350 Mg/Ml 100 Ml Infus..Btl IV 02/16/25 17:20 65 ml ONCE ONE Administration Nitroglycerin 0.4 mg 02/16/25 15:58 02/16/25 16:33 Nitroglycerin 0.4 Mg Tab.Subl SUBLINGUAL 02/16/25 15:59 0.4 mg ONCE ONE Administration Nitroglycerin 0.4 mg 02/16/25 17:31 02/16/25 17:36 Nitroglycerin 0.4 Mg Tab.Subl SUBLINGUAL 02/16/25 17:32 0.4 mg ONCE ONE Administration Medical Decision Making Medical Decision Making [facility] Narrative: 69-year-old male with a history of coronary artery disease with stenting on dual platelet therapy, chronic lower back pain, hypertension, hyperlipidemia, RCC s/p resection here with complaints of left-sided chest pain which began while he was lying down in the MRI machine just prior to arrival. Patient reports that he has a history of chronic lower back pain and recently developed increasing pain and numbness and radiation of pain down the right leg. He had plans for an outpatient MRI w/o contrast which he has had before. He has been less active and more mobile lately due to pain. He has been experiencing some exertional shortness of breath recently. After walking into MRI today and laying down he developed sharp left-sided chest pain with radiation to the left arm with associated shortness of breath and diaphoresis. He did not feel anxious at this time. He does have a history of anxiety and has experienced panic attacks before but does not feel that this is similar. On arrival he continues to have some left-sided chest pain for reports it is improved since earlier. He also reports some dizziness with position changes. He denies any leg swelling or leg pain. No fevers or chills. No recent URI symptoms. He is followed by Dr. Christy at [facility]. On arrival patient is A&Ox4, no focal findings, VSS. 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 Heart score is 5 d/t moderate HPI, age, history of CAD. Would consider admission in this patient. Will discuss with cardiology. Consult Healthcare Provider Management of the patient was discussed with: Atv Mechanic 1736-Sent Leckrone Text to Dr Pacheco from cardiology to discuss. 1746-I Spoke to Dr Pacheco who recommended speak to floor coverings salesperson [facility] provider and transfer the patient 1758-Called [employer] floor coverings salesperson, waiting for call back. 1809-Spoke to Dr Elliot Ortiz from [facility] who recommended transfer [place] [facility] [place] cardiac cath due to exertional angina 1814-Spoke to [facility] transfer line, pending call back 1849-Spoke to [facility] transfer line, they have accepted the patient. Dr Ortiz spoke directly to their hospitalist and gave report. They are waiting for a bed for him but will not have a bed this evening. They hope to have one tomorrow. I will speak to my hospitalist in regards to this as the patient would benefit from admission for monitoring and repeat troponins pending placement versus the emergency department. 1899-I spoke to the hospitalist (Dr Das) who accepted admission. Lab Data MDM Lab Attestation statement: I reviewed the patient's lab results. 02/16/25 16:02 02/16/25 16:02 Labs: Lab Results 02/16/25 Range/Units 16:02 WBC 8.7 (4.8-10.8) X10*3/uL RBC 4.94 (4.60-5.80) X10*6/uL Hgb 14.4 (14.0-18.0) g/dl Hct 43.9 (42.0-52.0) % MCV 88.9 (80.0-98.0) fL MCH 29.1 (27.0-33.0) pg MCHC 32.8 (31.0-36.0) g/dl RDW 13.6 (11.0-16.0) % Plt Count 257 (160-400) X10*3/uL MPV 9.2 L (9.4-12.4) fL Immature Gran % (Auto) 0.6 H (0.0-0.4) % Neut % (Auto) 63.2 (45-73) % Lymph % (Auto) 20.9 (20-40) % [place] % (Auto) 10.2 (2-11) % Eos % (Auto) 4.6 H (0-4) % Baso % (Auto) 0.5 (0-2) % Lymph # (Auto) 1.8 (1.2-4.9) X10*3/uL [place] # (Auto) 0.9 (0.1-1.2) X10*3/uL Eos # (Auto) 0.4 (0.0-0.4) X10*3/uL Baso # (Auto) 0.0 (0.0-0.2) X10*3/uL Abs Immat Gran (auto) 0.05 H (0.00-0.03) X10*3/uL Absolute Neuts (auto) 5.5 (2.0-8.3) x10*3/uL Absolute Nucleated RBC 0.000 (0.0-0.012) X10*3/uL Nucleated RBC % (auto) 0.0 (0.0-0.2) /100WBC PT 12.4 (10.9-12.4) SEC INR 1.1 (0.9-1.1) Sodium 141 (135-145) mmol/L Potassium 4.3 (3.3-5.1) mmol/L Chloride 110 H (96-108) mmol/L Carbon Dioxide 23 (22-29) mmol/L Anion Gap 12 (12-20) BUN 18 H (9-16) mg/dL Creatinine 1.65 H (0.5-1.4) mg/dL Estim Creat Clear Calc 49.8 Estimated GFR 42 Random Glucose 106 (60-115) mg/dL Calcium 8.3 L (8.4-10.2) mg/dL Total Bilirubin 0.4 (0.0-1.0) mg/dL Direct Bilirubin 0.1 (0.0-0.5) mg/dL AST 34 (5-37) U/L ALT 19 (0-40) U/L Alkaline Phosphatase 112 (39-117) U/L Troponin I High Sens 4.5 (<3.5-35.0) ng/L Total Protein 6.7 (6.5-8.0) g/dL Albumin 3.8 (3.5-5.0) g/dL Independent Interpretation I performed an independent interpretation of an: EKG, Plain X-Ray and CT Scan Interpretation: I independently viewed the x-ray and agree with the radiology report I independently viewed the EKG which shows sinus bradycardia with a rate of 56, normal KS, normal QRS, normal QT Radiology Impression Discussion of test interpretation with radiology: I have reviewed the radiologist's reading. Radiologist Impression: [address] [address] XRay Report Signed Patient: Pritesh Cota MR#: [id number] : 1955 Acct:[id number] Age/Sex: 69 / M ADM Date: 02/16/25 Loc: .ED Attending Dr: Ordering Physician: Cindy Lindsay NP Date of Service: 02/16/25 Procedure(s): XR chest 2V Accession Number(s): [id number] cc: Mony Fields MD; Cindy Lindsay NP~ CLINICAL HISTORY: cp 2 view chest x-ray Comparison: None provided Findings: The lungs are clear. Heart size is normal. No acute fracture. IMPRESSION: 1. No acute findings. [place] [address] CT Scan Report Signed Patient: Pritesh Cota MR#: [id number] : 1955 Acct:[id number] Age/Sex: 69 / M ADM Date: 02/16/25 Loc: .ED Attending Dr: Ordering Physician: Cindy Lindsay NP Date of Service: 02/16/25 Procedure(s): CT angio chest PE protocol Accession Number(s): [id number] cc: Mony Fields MD; Cindy Lindsay NP~ Report Number: [id number]: Total DLP = 312.00 mGy-cm CLINICAL HISTORY: SOB CP, h o immobility, r o PE --- Additional Notes or Special Instructions: creatinine 1.65 CT angiography chest with contrast. 3D Postprocessing. Comparison: CT - CT ANGIO CHEST PE PROTOCOL - 02/16/25 16:54 EDT Findings: The heart size is normal. RV/LV ratio is normal. The thoracic aorta is normal caliber. No pulmonary artery filling defects. The visualized thyroid and mediastinum are unremarkable. Mild bibasilar predominant ground-glass pulmonary opacity. The visualized upper abdomen is unremarkable. The bones are intact. IMPRESSION: 1. No pulmonary embolus. 2. Mild atypical pneumonia. This document has been electronically signed by: Danielito Salmon MD on 02/16/2025 18:16:54 Independent Historian Clinical information obtained from an independent historian. History obtained from or confirmed by: Spouse Chronic Conditions Patient?s care impacted by: Diabetes and Other (CAD) Critical Care Time Critical Care Time Critical Care Time: Yes Total Critical Care Time: 90 Attestation: Time includes: direct patient care, patient reassessment, coordination of patient care, interpretation of data, review of patient's medical records, medical consultation and documentation of patient care. Discharge Plan Discharge Clinical Impression: Chest pain, ALIX (acute kidney injury) Patient Disposition: Admitted As Inpatient Print Language: Wolof
[2025-02-16 16:30] LABS: Alanine Aminotransferase 19 U/L (0-40); Albumin Level 3.8 g/dL (3.5-5.0); Alkaline Phosphatase 112 U/L (39-117); Anion Gap 12 (12-20); Aspartate Amino Transferase 34 U/L (5-37); Blood Urea Nitrogen 18 mg/dL (9-16); Calcium 8.3 mg/dL (8.4-10.2); Carbon Dioxide 23 mmol/L (22-29); Chloride 110 mmol/L (96-108); Creatinine Clr Calc Pharmacy 49.8; Estimated Glomerular Filt Rate 42; Potassium 4.3 mmol/L (3.3-5.1); Sodium 141 mmol/L (135-145); Total Protein 6.7 g/dL (6.5-8.0)
[2025-02-16 16:37] LABS: Troponin-I High Sensitivity 4.5 ng/L (<3.5-35.0)
--- NOTE | 2025-02-16 16:48 | PC.NURSE ---
pt comes to ED from MRI as outpatient response. pt was getting an MRI of his back when he had sudden onset 10/10 chest pain, left side. describes it as pressure. he states it radiates to his left upper arm. alert, orientedx4. He has a hx of OH and one stent. He has hx of CVA. Pt reports that recently he has not been as active as usual and had some exertional SOB today which he does not feel now at rest. IV established, labs drawn, EKG done. medicated per SEP. Sinus hannah to NSR on tele (rate 55-65 at rest). Orthos complete.
[2025-02-16] MEDS: iohexoL 350 MG/ML 100 ML INFUS..BTL 65 ML IV (17:19)
--- NOTE | 2025-02-16 19:04 | PC.NURSE ---
Patient's sinus hannah on cardiac catheterization technician HR 45-55. Cindy, ED provider made aware, no new orders at this time.
--- NOTE | 2025-02-16 19:20 | PM.IMHP ---
History of Present Illness Date of Service: 02/16/25 Chief Complaint: chest pain This has a 69-year-old male with pertinent history of coronary artery disease status post stent, mood disorder, BPH, lumbar degenerative disc disease, mixed hyperlipidemia, renal cell cancer status post left nephrectomy who presents to the emergency department for evaluation of chest pain. Patient states he had sudden onset of midsternal chest discomfort which began while he was having outpatient MRI for lower back pain. The pain is constant and not relieve with rest, reduced in intensity with nitroglycerin and radiates down his left arm. Denies associated nausea and sweating. Patient was having outpatient MRI due to radiculopathic pain. No fever, chills, palpitations, shortness of breath, abdominal pain, changes in urinary or bowel habits. In the emergency department, flotation tender was consulted who recommended reaching out to patient's primary flotation tender. On-call flotation tender for [facility] recommended transfer to [facility] for possible catheterization. As per ER provider, Dr Ortiz spoke directly to their hospitalist and gave report. They are waiting for a bed for him but will not have a bed this evening. They hope to have one tomorrow. . Patient was initiated on IV heparin in the ER and given full-dose aspirin. Will admit patient to [facility] with IV heparin while awaiting a bed at [facility]. Review of Systems Cardiovascular: Cardiovascular: Reports chest pain and Reports chest pain at rest Respiratory: Respiratory: Reports no additional respiratory complaints Gastrointestinal: Gastrointestinal: Reports no additional gastrointestinal complaints Genitourinary: Genitourinary: Reports no additional male genitourinary complaints [facility] Medical History Major depression in remission Hypertension Hyperlipidemia Encephalopathy Degeneration of lumbar intervertebral disc Coronary arteriosclerosis CAD in [place] artery Cervical spondylosis Adjustment disorder Hypersomnia Snoring Obesity Spondylosis BPPV (benign paroxysmal positional vertigo) Myocardial infarction Family History Father CAD (coronary artery disease) Hyperlipidemia Mother CAD (coronary artery disease) Hyperlipidemia Surgical History H/O hemorrhoidectomy Hx of fusion of cervical spine (~2004) Hx laparoscopic cholecystectomy (~10/2019) History of hip surgery History of knee replacement Hx of cholecystectomy Social History Alcohol intake: current Alcohol intake frequency: a few times a week Alcohol type: wine Patient Tobacco Use Status: Never used Tobacco Meds Allergies Allergy/AdvReac Type Severity Reaction Status Date / Time ibuprofen (From Motrin) Allergy Unknown Vomiting Verified 02/16/25 15:43 oxycodone Allergy Unknown Nausea Verified 02/16/25 15:43 codeine AdvReac Mild Gastrointestinal Verified 02/16/25 15:43 Upset Active Medications: Current Medications Heparin Sodium (Porcine) (Heparin Sodium,Porcine 5,000 Unit/Ml Vial) 4,400 unit 40 unit/kg (4400 unit) IVPUSH PROTOCOL BOLUS PRN; Protocol PRN Reason: 40 unit/kg - Heparin Protocol Heparin Sodium (Porcine) (Heparin Sodium,Porcine 5,000 Unit/Ml Vial) 8,700 unit 80 unit/kg (8700 unit) IVPUSH PROTOCOL BOLUS PRN; Protocol PRN Reason: 80 unit/kg - Heparin Protocol Heparin Sodium/Sodium Chloride (Heparin Sodium,Porcine/1/2ns) 25,000 unit in 250 mls @ 0 mls/hr IVCONT .Q0M ELPIDIO; Protocol Home Medications ?Medication ?Instructions ?Recorded ?Confirmed ?Last Taken ?Type aspirin 81 mg tablet,delayed 81 mg PO DAILY 08/20/21 12/25/24 Unknown History release atorvastatin 80 mg tablet (Lipitor) 80 mg PO DAILY 08/20/21 12/25/24 Unknown History buspirone 10 mg tablet 10 mg PO BID 07/21/23 12/25/24 Unknown History carvedilol 3.125 mg tablet 3.125 mg PO BID 07/21/23 12/25/24 Unknown History clopidogrel 75 mg tablet 75 mg PO DAILY 07/21/23 12/25/24 Unknown History isosorbide mononitrate 30 mg 30 mg PO BID 07/21/23 12/25/24 Unknown History tablet,extended release 24 hr meclizine 12.5 mg tablet 12.5 mg PO TID 08/30/23 12/25/24 Unknown History bupropion HCl 100 mg tablet,12 hr 100 mg PO QAM 12/25/24 12/25/24 Unknown History sustained-release cholecalciferol (vitamin D3) 25 25 mcg PO DAILY 12/25/24 12/25/24 Unknown History mcg (1,000 unit) capsule ezetimibe 10 mg tablet 10 mg PO DAILY 12/25/24 12/25/24 Unknown History tamsulosin 0.4 mg capsule mg PO 12/25/24 12/25/24 Unknown History Physical Exam Vital Signs and Narrative: Vital Signs: Last Vital Signs Temp 97.6 F 02/16/25 15:40 Pulse 68 02/16/25 16:28 Resp 16 02/16/25 15:40 BP 110/63 02/16/25 17:36 Pulse Ox 96 02/16/25 15:40 O2 Del Method Room Air 02/16/25 15:40 BMI result Body Mass Index 37.7 Middle-aged male lying in bed in no distress Neck supple, no JVD Regular rate and rhythm, S1-S2 heard Regular breath sounds bilaterally, no wheezing or crackles appreciated Abdomen soft nontender, no guarding, no rigidity Patient is awake, alert and oriented to self, place, time and person ; no focal motor deficit Psych: Normal mood No pedal edema Results Labs 02/16/25 19:17 02/16/25 16:02 Labs: Laboratory Results - last 24 hr 02/16/25 16:02 MCV 88.9 MCH 29.1 MCHC 32.8 RDW 13.6 Plt Count 257 MPV 9.2 L Immature Gran % (Auto) 0.6 H Neut % (Auto) 63.2 Lymph % (Auto) 20.9 [place] % (Auto) 10.2 Eos % (Auto) 4.6 H Baso % (Auto) 0.5 Lymph # (Auto) 1.8 [place] # (Auto) 0.9 Eos # (Auto) 0.4 Baso # (Auto) 0.0 Abs Immat Gran (auto) 0.05 H Absolute Neuts (auto) 5.5 Absolute Nucleated RBC 0.000 Nucleated RBC % (auto) 0.0 PT 12.4 INR 1.1 Anion Gap 12 Estim Creat Clear Calc 49.8 Estimated GFR 42 Random Glucose 106 Calcium 8.3 L Total Bilirubin 0.4 Direct Bilirubin 0.1 AST 34 ALT 19 Alkaline Phosphatase 112 Total Protein 6.7 Albumin 3.8 Assessment and Plan (1) Unstable angina: Status: Acute Plan This has a 69-year-old male with pertinent history of coronary artery disease status post stent, mood disorder, BPH, lumbar degenerative disc disease, mixed hyperlipidemia, renal cell cancer status post left nephrectomy who presents to the emergency department for evaluation of chest pain. #. Unstable angina: Will admit patient with cardiac monitoring. Initiated IV heparin in the ER. Patient is on dual antiplatelet therapy, high-intensity statin, nitrate and beta-justino. Case was discussed with Dr. Elliot Ortiz, flotation tender on-call for [facility] who recommended transfer to [facility] for cardiac catheterization. Patient is currently awaiting a bed at [facility]. #. Elevated creatinine: Unknown baseline. ALIX versus CKD. Monitor with crystalloid resuscitation. #. Lumbar degenerative disc disease: Has radiculopathic pain. Outpatient MRI results pending #. Mood disorder: Continue home mood stabilizers #. BPH: On Flomax Med rec pending DVT prophylaxis: IV heparin Full code Admit as inpatient and will require two night minimum hospital stay for (as above), which is not possible in a lesser acute setting. Quality Stroke Does the patient have a stroke diagnosis?: No VTE Prior VTE?: No VTE Risk Level:: Medical - moderate - high VTE Device Contraindication: Treatment Not Indicated VTE Drug Contraindication: N/A - Med Ordered
[2025-02-16 19:22] LABS: Hematocrit 39.8 % (42.0-52.0); Hemoglobin 13.5 g/dl (14.0-18.0); Mean Corpuscular HGB Conc 33.9 g/dl (31.0-36.0); Mean Corpuscular Hemoglobin 29.7 pg (27.0-33.0); Mean Corpuscular Volume 87.5 fL (80.0-98.0); NRBC Abs Auto 0.000 X10*3/uL (0.0-0.012); NRBC Pct Auto 0.0 /100WBC (0.0-0.2); Platelet Count 224 X10*3/uL (160-400); Red Blood Count 4.55 X10*6/uL (4.60-5.80); White Blood Count 9.4 X10*3/uL (4.8-10.8)
[2025-02-16 19:29] LABS: INTERNATIONAL NORM RATIO 1.1 (0.9-1.1); Prothrombin Time 12.5 SEC (10.9-12.4)
[2025-02-16 19:32] LABS: Partial Thromboplastin Time 31.1 SEC (26.0-36.8)
[2025-02-16 19:45] LABS: Troponin-I High Sensitivity 4.0 ng/L (<3.5-35.0)
[2025-02-16] MEDS: Heparin Sodium,Porcine/1/2NS 25,000 UNIT/250 ML IV.SOLN 10 UNIT IVCONT (19:48)
--- NOTE | 2025-02-16 20:00 | PC.NURSE ---
Heparin drip started at 10 mL/hr via 22 G IV line in L hand, patient tolerating infusion well, no s/s of active bleeding noted.
--- NOTE | 2025-02-16 21:39 | PC.NURSE ---
Patient reporting 5/10 pressure chest pain at present. BP 103/56, P 52 and chronic lower back pain 8/10. Dr. Das notified.
--- NOTE | 2025-02-16 21:42 | PC.NURSE ---
Per Dr. Das, hold Nitro 0.4 mg subl d/t soft BP's at this time, patient medicated with Methocabamol 750 mg PO for 8/10 chronic lower bck pain.
[2025-02-17] VITALS (14 sets, daily range): BP systolic 103–149; BP diastolic 50–85; PULSE 54–71; RESP 13–18; TEMP 36.3–37.2; O2SAT 94–98
--- NOTE | 2025-02-17 00:04 | PC.NURSE ---
Medication reconciliation completed per patient's verbal report.
[2025-02-17 02:45] LABS: Hematocrit 41.4 % (42.0-52.0); Hemoglobin 13.5 g/dl (14.0-18.0); Mean Corpuscular HGB Conc 32.6 g/dl (31.0-36.0); Mean Corpuscular Hemoglobin 29.1 pg (27.0-33.0); Mean Corpuscular Volume 89.2 fL (80.0-98.0); NRBC Abs Auto 0.000 X10*3/uL (0.0-0.012); NRBC Pct Auto 0.0 /100WBC (0.0-0.2); Platelet Count 230 X10*3/uL (160-400); Red Blood Count 4.64 X10*6/uL (4.60-5.80); White Blood Count 8.1 X10*3/uL (4.8-10.8)
[2025-02-17 02:57] LABS: PTT Heparin Drip 43.4 SEC (53-77.9)
[2025-02-17 03:02] LABS: Anion Gap 11 (12-20); Blood Urea Nitrogen 17 mg/dL (9-16); Calcium 8.0 mg/dL (8.4-10.2); Carbon Dioxide 23 mmol/L (22-29); Chloride 112 mmol/L (96-108); Creatinine Clr Calc Pharmacy 48.8; Estimated Glomerular Filt Rate 40; Potassium 4.2 mmol/L (3.3-5.1); Sodium 142 mmol/L (135-145)
[2025-02-17 06:08] LABS: Hematocrit 41.5 % (42.0-52.0); Hemoglobin 13.8 g/dl (14.0-18.0); Mean Corpuscular HGB Conc 33.3 g/dl (31.0-36.0); Mean Corpuscular Hemoglobin 29.2 pg (27.0-33.0); Mean Corpuscular Volume 87.7 fL (80.0-98.0); NRBC Abs Auto 0.000 X10*3/uL (0.0-0.012); NRBC Pct Auto 0.0 /100WBC (0.0-0.2); Platelet Count 226 X10*3/uL (160-400); Red Blood Count 4.73 X10*6/uL (4.60-5.80); White Blood Count 8.8 X10*3/uL (4.8-10.8)
[2025-02-17 06:39] LABS: Troponin-I High Sensitivity 4.6 ng/L (<3.5-35.0)
--- NOTE | 2025-02-17 07:27 | P.PNIM_ITS ---
Subjective Subjective Date of Service: 02/17/25 Interval History: f/u on chest pain , UA hemodynamically stable still with intermittent chest pain Physical Exam 2 Vital Signs: Vital Signs: Last Vital Signs Temp 97.4 F 02/17/25 07:16 Pulse 59 02/17/25 07:16 Resp 18 02/17/25 07:16 BP 141/85 H 02/17/25 07:16 Pulse Ox 96 02/17/25 07:16 O2 Del Method Room Air 02/17/25 07:16 BMI result Body Mass Index 38.0 General: AO X 3, no acute distress Resp: CTA bilateral CVS: S1,S2,RRR GI: +BS, NT, no distention Skin: No rash Neuro: motor grossly intact Psych: appropriate affect Objective Data Active Medications Acetaminophen (Acetaminophen 325 Mg Tablet) 650 mg PO Q6H PRN PRN Reason: Pain, Mild 1-3,fever,headache Last Admin: 02/17/25 05:44 Dose: 650 mg Documented By: ADELSO Calcium Carbonate (Calcium Carbonate 750 Mg Tab.Chew) 750 mg PO Q4H PRN PRN Reason: Heartburn Heparin Sodium (Porcine) (Heparin Sodium,Porcine 5,000 Unit/Ml Vial) 4,400 unit 40 unit/kg (4400 unit) IVPUSH PROTOCOL BOLUS PRN; Protocol PRN Reason: 40 unit/kg - Heparin Protocol Last Admin: 02/17/25 03:09 Dose: 4,400 unit Documented By: ADELSO Heparin Sodium (Porcine) (Heparin Sodium,Porcine 5,000 Unit/Ml Vial) 8,700 unit 80 unit/kg (8700 unit) IVPUSH PROTOCOL BOLUS PRN; Protocol PRN Reason: 80 unit/kg - Heparin Protocol Heparin Sodium/Sodium Chloride (Heparin Sodium,Porcine/1/2ns) 25,000 unit in 250 mls @ 0 mls/hr IVCONT .Q0M ELPIDIO; Protocol Last Titration: 02/17/25 03:11 Dose: 11.16 units/kg/hr, 12.19 mls/hr Documented By: ADELSO Co-signed By: SHEFALI Magnesium Hydroxide (Milk Of Magnesia 30 Ml Oral.Susp) 30 ml PO DAILY PRN PRN Reason: Constipation Melatonin (Melatonin 3 Mg Tablet) 6 mg PO BEDTIME PRN PRN Reason: Insomnia Nitroglycerin (Nitroglycerin 0.4 Mg Tab.Subl) 0.4 mg SUBLINGUAL Q5MX3 PRN PRN Reason: Chest Pain Last Admin: 02/17/25 02:18 Dose: 0.4 tab Documented By: ADELSO Ondansetron HCl (Ondansetron Hcl 4 Mg/2 Ml Vial) 4 mg IVPUSH Q8H PRN PRN Reason: Nausea and Vomiting Sodium Chloride (0.9 % Sodium Chloride Flush 3 Ml Syringe) 3 ml IVFLUSH QSHIFT ELPIDIO Last Admin: 02/17/25 00:18 Dose: Not Given Documented By: RAMON Non-Admin Reason: IV Running Labs 02/17/25 05:36 02/17/25 02:27 Labs: Laboratory Results - last 24 hr 02/16/25 02/16/25 02/17/25 16:02 19:17 02:27 MCV 88.9 87.5 89.2 MCH 29.1 29.7 29.1 MCHC 32.8 33.9 32.6 RDW 13.6 13.7 13.9 Plt Count 257 224 230 MPV 9.2 L 9.1 L 9.2 L Immature Gran % (Auto) 0.6 H Neut % (Auto) 63.2 Lymph % (Auto) 20.9 [place] % (Auto) 10.2 Eos % (Auto) 4.6 H Baso % (Auto) 0.5 Lymph # (Auto) 1.8 [place] # (Auto) 0.9 Eos # (Auto) 0.4 Baso # (Auto) 0.0 Abs Immat Gran (auto) 0.05 H Absolute Neuts (auto) 5.5 Absolute Nucleated RBC 0.000 0.000 0.000 Nucleated RBC % (auto) 0.0 0.0 0.0 PT 12.4 12.5 H INR 1.1 1.1 APTT 31.1 aPTT Heparin Protocol 43.4 L Anion Gap 12 11 L Estim Creat Clear Calc 49.8 48.8 Estimated GFR 42 40 Random Glucose 106 105 Calcium 8.3 L 8.0 L Total Bilirubin 0.4 Direct Bilirubin 0.1 AST 34 ALT 19 Alkaline Phosphatase 112 Total Protein 6.7 Albumin 3.8 02/17/25 05:36 MCV 87.7 MCH 29.2 MCHC 33.3 RDW 13.8 Plt Count 226 MPV 9.1 L Immature Gran % (Auto) Neut % (Auto) Lymph % (Auto) [place] % (Auto) Eos % (Auto) Baso % (Auto) Lymph # (Auto) [place] # (Auto) Eos # (Auto) Baso # (Auto) Abs Immat Gran (auto) Absolute Neuts (auto) Absolute Nucleated RBC 0.000 Nucleated RBC % (auto) 0.0 PT INR APTT aPTT Heparin Protocol Anion Gap Estim Creat Clear Calc Estimated GFR Random Glucose Calcium Total Bilirubin Direct Bilirubin AST ALT Alkaline Phosphatase Total Protein Albumin Assessment and Plan (1) Unstable angina: Status: Acute (2) Chest pain: Status: Acute Plan 69/m with CAD s/p stent, mood disorder, BPH, lumbar degenerative disc disease, mixed HLD, h/o renal cell cancer status post left nephrectomy here with chest pain and admitted for Unstable angina (UA) Unstable angina, hemodynamically stable, Trops negative, ECG sinus hannah o/w normal. continue IV heparin, ASA, imdur, plavix, BB, Statin, cardiology consult. To be transfered to [facility] for cardiac cath when bed available--accepted by Dr. Elliot Ortiz, creative services writer on-call for [facility] Elevated creatinine: Unknown baseline. ALIX versus CKD. Monitor with crystalloid resuscitation. Lumbar degenerative disc disease: Has radiculopathic pain. Outpatient MRI results pending Morphine, tylenol for pain Mood disorder: Continue home mood stabilizers BPH: On Flomax DVT prophylaxis: IV heparin Full code Admit as inpatient and will require two night minimum hospital stay for (as above), which is not possible in a lesser acute setting. Quality Stroke Does the patient have a stroke diagnosis?: No VTE Prior VTE?: No VTE Risk Level:: Medical - moderate - high VTE Device Contraindication: Treatment Not Indicated VTE Drug Contraindication: N/A - Med Ordered
--- NOTE | 2025-02-17 07:38 | PM.DS ---
DS: Providers Provider Date of Service: 03/20/25 Date of admission: 02/16/25 19:18 Date of discharge: 03/20/25 Primary care physician: Moses Fields MD Consults: 02/16/25 19:35 Consult to Cardiology Routine Consulting Provider: [facility] Reason for consultation: ACS Has provider been notified: Yes DS: Diagnosis Discharge Diagnosis (1) Unstable angina: Status: Acute DS: Summary Hospital Course Hospital Course: Admission HPI Chief Complaint: chest pain This has a 69-year-old male with pertinent history of coronary artery disease status post stent, mood disorder, BPH, lumbar degenerative disc disease, mixed hyperlipidemia, renal cell cancer status post left nephrectomy who presents to the emergency department for evaluation of chest pain. Patient states he had sudden onset of midsternal chest discomfort which began while he was having outpatient MRI for lower back pain. The pain is constant and not relieve with rest, reduced in intensity with nitroglycerin and radiates down his left arm. Denies associated nausea and sweating. Patient was having outpatient MRI due to radiculopathic pain. No fever, chills, palpitations, shortness of breath, abdominal pain, changes in urinary or bowel habits. In the emergency department, descriptive catalog librarian was consulted who recommended reaching out to patient's primary descriptive catalog librarian. On-call descriptive catalog librarian for [facility] recommended transfer to [facility] for possible catheterization. As per ER provider, Dr Ortiz spoke directly to their hospitalist and gave report. They are waiting for a bed for him but will not have a bed this evening. They hope to have one tomorrow. . Patient was initiated on IV heparin in the ER and given full-dose aspirin. Will admit patient to [facility] with IV heparin while awaiting a bed at [facility]. Hospital course: Patient presented with typical chest pain concerning for unstable Angina, ECG sinus hannah otherwise normal, troponinin I are normal. He's started on IV heparin on advise of cardiology with furether recommendation to transfer to [facility] for cardiac by Trim Setter Dr. Ortiz. He is presently hemodynamically stabl. Medical Management include IV heprin, ASA, Plavix, Coreg, Lipitor 80, Time Attestation Discharge Coordination Time (in mins): 35 Quality: Safe Use of Opioids Does Pt have an Active Cancer Diagnosis on the Problem List?: No Quality: Stroke Does the patient have a stroke diagnosis?: No Physical Exam Vital Signs: Vital Signs: Last Vital Signs Temp 97.4 F 02/17/25 07:16 Pulse 59 02/17/25 07:16 Resp 18 02/17/25 07:16 BP 141/85 H 02/17/25 07:16 Pulse Ox 96 02/17/25 07:16 O2 Del Method Room Air 02/17/25 07:16 BMI result Body Mass Index 38.0 General: AO X 3, no acute distress Resp: CTA bilateral CVS: S1,S2,RRR GI: +BS, NT, no distention Skin: No rash Neuro: motor grossly intact Psych: appropriate affect DS: Data Data Completed and Pending Labs on day of discharge: Laboratory Results - last 24 hr 02/16/25 02/16/25 02/17/25 16:02 19:17 02:27 WBC 8.7 9.4 8.1 RBC 4.94 4.55 L 4.64 Hgb 14.4 13.5 L 13.5 L Hct 43.9 39.8 L 41.4 L MCV 88.9 87.5 89.2 MCH 29.1 29.7 29.1 MCHC 32.8 33.9 32.6 RDW 13.6 13.7 13.9 Plt Count 257 224 230 MPV 9.2 L 9.1 L 9.2 L Immature Gran % (Auto) 0.6 H Neut % (Auto) 63.2 Lymph % (Auto) 20.9 [place] % (Auto) 10.2 Eos % (Auto) 4.6 H Baso % (Auto) 0.5 Lymph # (Auto) 1.8 [place] # (Auto) 0.9 Eos # (Auto) 0.4 Baso # (Auto) 0.0 Abs Immat Gran (auto) 0.05 H Absolute Neuts (auto) 5.5 Absolute Nucleated RBC 0.000 0.000 0.000 Nucleated RBC % (auto) 0.0 0.0 0.0 PT 12.4 12.5 H INR 1.1 1.1 APTT 31.1 aPTT Heparin Protocol 43.4 L Sodium 141 142 Potassium 4.3 4.2 Chloride 110 H 112 H Carbon Dioxide 23 23 Anion Gap 12 11 L BUN 18 H 17 H Creatinine 1.65 H 1.69 H Estim Creat Clear Calc 49.8 48.8 Estimated GFR 42 40 Random Glucose 106 105 Calcium 8.3 L 8.0 L Total Bilirubin 0.4 Direct Bilirubin 0.1 AST 34 ALT 19 Alkaline Phosphatase 112 Troponin I High Sens 4.5 4.0 Total Protein 6.7 Albumin 3.8 02/17/25 05:36 WBC 8.8 RBC 4.73 Hgb 13.8 L Hct 41.5 L MCV 87.7 MCH 29.2 MCHC 33.3 RDW 13.8 Plt Count 226 MPV 9.1 L Immature Gran % (Auto) Neut % (Auto) Lymph % (Auto) [place] % (Auto) Eos % (Auto) Baso % (Auto) Lymph # (Auto) [place] # (Auto) Eos # (Auto) Baso # (Auto) Abs Immat Gran (auto) Absolute Neuts (auto) Absolute Nucleated RBC 0.000 Nucleated RBC % (auto) 0.0 PT INR APTT aPTT Heparin Protocol Sodium Potassium Chloride Carbon Dioxide Anion Gap BUN Creatinine Estim Creat Clear Calc Estimated GFR Random Glucose Calcium Total Bilirubin Direct Bilirubin AST ALT Alkaline Phosphatase Troponin I High Sens 4.6 Total Protein Albumin Discharge Plan Discharge Anticipated Discharge Date/Time: 02/17/25 01:28 Patient Disposition: Xfer Acute Care Hospital Discharge Diagnosis: Chest pain, Unstable angina Referrals: Mony Fields MD [Primary Care Provider, Internal Medicine] - 1 Week Discharge Medications: New heparin(porcine) in 0.45% NaCl 25,000 unit/250 mL Parenteral Solution 25,000 unit continuous IV infusion .Q0M Qty: 6000 0RF Rx Instructions: Per heparin drip protocol Continued methocarbamol 500 mg tablet 500 mg PO QID PRN (Reason: muscle spasm) cyanocobalamin (vitamin B-12) 1,000 mcg Tablet 1,000 mcg PO DAILY docusate sodium [Stool Softener] 100 mg Capsule 100 mg PO DAILY escitalopram oxalate 20 mg tablet 20 mg PO BEDTIME aspirin 81 mg tablet,delayed release (DR/EC) 81 mg PO DAILY atorvastatin [Lipitor] 80 mg tablet 80 mg PO BEDTIME meclizine 12.5 mg tablet 12.5 mg PO TID PRN (Reason: Dizziness) clopidogrel 75 mg tablet 75 mg PO DAILY buspirone 10 mg tablet 10 mg PO BEDTIME carvedilol 3.125 mg tablet 3.125 mg PO BID isosorbide mononitrate 30 mg tablet extended release 24 hr 90 mg PO DAILY ezetimibe 10 mg tablet 10 mg PO BEDTIME tamsulosin 0.4 mg capsule 0.4 mg PO DAILY bupropion HCl 100 mg tablet sustained-release 12 hr 100 mg PO QAM cholecalciferol (vitamin D3) 25 mcg (1,000 unit) capsule 25 mcg PO DAILY Discharge Orders: Discharge Order (Routine); Ordered 02/18/25 Ordered By: Dick Lee Diet: Advance to usual diet Activity on Discharge: As tolerated Stand Alone Forms: Patient Portal Discharge page Print Language: Occitan Care Plan Goals: To be transfered to [facility] for cardiac cath in light of chest pain with underlying heart disease Health Concerns: Chest pain, Unstable Angina Plan of Treatment: To be transfered to [facility] Continue Heparin, ASA, Coreg, Lipitor, Plavix Assessment: see above Patient Instructions: Chest Pain (ED) Discharge Date/Time: 02/18/25 01:38
[2025-02-17 09:19] LABS: PTT Heparin Drip 127.2 SEC (53-77.9)
--- NOTE | 2025-02-17 10:13 | PHA.MEDREC ---
Addendum entered by Remington Corrigan RPh 02/17/25 10:27: MED REC REVIEWED BY [facility] Original Note: Pharmacy Consult ? Medication Reconciliation Pharmacy has completed the medication reconciliation. Spoke with patient to confirm. Buspirone decreased to 10 mg at bedtime. He takes carvedilol and not metoprolol. He uses methocarbamol and meclizine only prn.
[2025-02-17] MEDS: Aspirin Enteric Coated 81 MG TABLET.DR PO (10:46)
[2025-02-17] MEDS: buPROPion HCl XL 150 MG TAB.ER.24H PO (10:47)
[2025-02-17 11:04] LABS: PTT Heparin Drip 64.3 SEC (53-77.9)
[2025-02-17 12:05] LABS: INTERNATIONAL NORM RATIO 1.1 (0.9-1.1); Prothrombin Time 12.4 SEC (10.9-12.4)
--- NOTE | 2025-02-17 12:26 | P.CONCA_ITS ---
History of Present Illness History of Present Illness Date of Service: 02/17/25 Requesting physician: Charles Coughlin Chief complaint: Chest pain Narrative: [age] year gentleman presenting with chest discomfort and shortness of breath. He has known history of coronary disease and had inferior wall [place] in 2018 when he had primary PCI performed to right coronary artery. Subsequent to that he had cardiac catheterization in 2017, 2019 and in 2021 for prolonged left-sided chest discomfort. No culprit was found on all these angios and he was medically managed. He has been experiencing low back pain and came for MRI. While laying in the MRI he started feeling left-sided chest discomfort and shortness of breath. He said he became diaphoretic. He came to the emergency department in his EKG was normal. He has been ruled out with 3 sets of high sensitivity troponins. He is saying he is still has left-sided discomfort which is persistent. He also is shortness of breath with activity. His CT scan has shown bibasilar ground-glass changes concerning for atypical pneumonia. [facility] Past Medical History Medical History Major depression in remission Hypertension Hyperlipidemia Encephalopathy Degeneration of lumbar intervertebral disc Coronary arteriosclerosis CAD in [place] artery Cervical spondylosis Adjustment disorder Hypersomnia Snoring Obesity Spondylosis BPPV (benign paroxysmal positional vertigo) Myocardial infarction Family History Family History Father CAD (coronary artery disease) Hyperlipidemia Mother CAD (coronary artery disease) Hyperlipidemia Surgical History Surgical History H/O hemorrhoidectomy Hx of fusion of cervical spine (~2004) Hx laparoscopic cholecystectomy (~10/2019) History of hip surgery History of knee replacement Hx of cholecystectomy Social History Social History Household Members: Spouse Housing: House Do you presently have visiting nurse or other home services: No Alcohol intake: current Alcohol intake frequency: a few times a week Alcohol type: wine Patient Tobacco Use Status: Never used Tobacco Meds Allergies Allergy/AdvReac Type Severity Reaction Status Date / Time ibuprofen (From Motrin) Allergy Unknown Vomiting Verified 02/16/25 15:43 oxycodone Allergy Unknown Nausea Verified 02/16/25 15:43 codeine AdvReac Mild Gastrointestinal Verified 02/16/25 15:43 Upset Active Medications: Current Medications Acetaminophen (Acetaminophen 325 Mg Tablet) 650 mg PO Q6H PRN PRN Reason: Pain, Mild 1-3,fever,headache Last Admin: 02/17/25 05:44 Dose: 650 mg Aspirin (Aspirin Enteric Coated 81 Mg Tablet.Dr) 81 mg PO DAILY [facility] Last Admin: 02/17/25 10:46 Dose: 81 mg Atorvastatin Calcium (Atorvastatin Calcium 80 Mg Tablet) 80 mg PO BEDTIME [facility]PIDIO Bupropion HCl (Bupropion Hcl Xl 150 Mg Tab.Er.24h) 150 mg PO DAILY [facility] Last Admin: 02/17/25 10:47 Dose: 150 mg Buspirone HCl (Buspirone Hcl 10 Mg Tablet) 10 mg PO BEDTIME [facility] Calcium Carbonate (Calcium Carbonate 750 Mg Tab.Chew) 750 mg PO Q4H PRN PRN Reason: Heartburn Carvedilol (Carvedilol 3.125 Mg Tablet) 3.125 mg PO BID [facility]; Protocol Last Admin: 02/17/25 10:47 Dose: 3.125 mg Clopidogrel Bisulfate (Clopidogrel Bisulfate 75 Mg Tablet) 75 mg PO DAILY [facility] Last Admin: 02/17/25 10:46 Dose: 75 mg Cyanocobalamin (Cyanocobalamin (Vitamin B-12) 1,000 Mcg Tablet) 1,000 mcg PO DAILY [facility] Last Admin: 02/17/25 10:47 Dose: 1,000 mcg Docusate Sodium (Docusate Sodium 100 Mg Capsule) 100 mg PO DAILY [facility] Last Admin: 02/17/25 10:47 Dose: 100 mg Ezetimibe (Ezetimibe 10 Mg Tablet) 10 mg PO BEDTIME [facility] Escitalopram Oxalate (Escitalopram Oxalate 20 Mg Tablet) 20 mg PO BEDTIME [facility] Heparin Sodium (Porcine) (Heparin Sodium,Porcine 5,000 Unit/Ml Vial) 4,400 unit 40 unit/kg (4400 unit) IVPUSH PROTOCOL BOLUS PRN; Protocol PRN Reason: 40 unit/kg - Heparin Protocol Last Admin: 02/17/25 03:09 Dose: 4,400 unit Heparin Sodium (Porcine) (Heparin Sodium,Porcine 5,000 Unit/Ml Vial) 8,700 unit 80 unit/kg (8700 unit) IVPUSH PROTOCOL BOLUS PRN; Protocol PRN Reason: 80 unit/kg - Heparin Protocol Heparin Sodium/Sodium Chloride (Heparin Sodium,Porcine/1/2ns) 25,000 unit in 250 mls @ 0 mls/hr IVCONT .Q0M [facility]; Protocol Last Titration: 02/17/25 11:35 Dose: 7.16 units/kg/hr, 7.82 mls/hr Isosorbide Mononitrate (Isosorbide Mononitrate 60 Mg Tab.Er.24h) 60 mg PO DAILY [facility]; Protocol Magnesium Hydroxide (Milk Of Magnesia 30 Ml Oral.Susp) 30 ml PO DAILY PRN PRN Reason: Constipation Meclizine HCl (Meclizine Hcl 12.5 Mg Tablet) 12.5 mg PO TID PRN PRN Reason: Dizziness Melatonin (Melatonin 3 Mg Tablet) 6 mg PO BEDTIME PRN PRN Reason: Insomnia Methocarbamol (Methocarbamol 500 Mg Tablet) 500 mg PO QID PRN PRN Reason: Muscle Spasm Morphine Sulfate (Morphine Sulfate 2 Mg/Ml Cartridge) 2 mg IVPUSH Q4H PRN; Protocol PRN Reason: Pain, Severe (Pain Scale 7-10) Last Admin: 02/17/25 10:47 Dose: 2 mg Nitroglycerin (Nitroglycerin 0.4 Mg Tab.Subl) 0.4 mg SUBLINGUAL Q5MX3 PRN PRN Reason: Chest Pain Last Admin: 02/17/25 08:29 Dose: 0.4 tab Ondansetron HCl (Ondansetron Hcl 4 Mg/2 Ml Vial) 4 mg IVPUSH Q8H PRN PRN Reason: Nausea and Vomiting Sodium Chloride (0.9 % Sodium Chloride Flush 3 Ml Syringe) 3 ml IVFLUSH QSHIFT [facility] Last Admin: 02/17/25 07:41 Dose: Not Given Tamsulosin HCl (Tamsulosin Hcl 0.4 Mg Capsule) 0.4 mg PO DAILY [facility] Last Admin: 02/17/25 10:47 Dose: 0.4 mg Vitamin D (Cholecalciferol (Vitamin D3) 25 Mcg Tablet) 25 mcg PO DAILY [facility] Home Medications ?Medication ?Instructions ?Recorded ?Confirmed ?Last Taken ?Type aspirin 81 mg tablet,delayed 81 mg PO DAILY 08/20/21 0 02/17/25 Unknown History release atorvastatin 80 mg tablet (Lipitor) 80 mg PO BEDTIME 0 08/20/21 02/17/25 Unknown History buspirone 10 mg tablet 10 mg PO BEDTIME 07/21/23 Unknown History carvedilol 3.125 mg tablet 3.125 mg PO BID 07/21/23 Unknown History clopidogrel 75 mg tablet 75 mg PO DAILY 07/21/2301/23 Unknown History isosorbide mononitrate 30 mg 90 mg PO DAILY 07/21/23 0 02/17/25 Unknown History tablet,extended release 24 hr meclizine 12.5 mg tablet 12.5 mg PO TID PRN Dizziness 08/30/23 02/17/25 Unknown History bupropion HCl 100 mg tablet,12 hr 100 mg PO QAM 02/17/25 Unknown History sustained-release cholecalciferol (vitamin D3) 25 25 mcg PO DAILY 02/17/25 Unknown History mcg (1,000 unit) capsule ezetimibe 10 mg tablet 10 mg PO BEDTIME 12/25/24 Unknown History tamsulosin 0.4 mg capsule 0.4 mg PO DAILY 12/25/24 Unknown History cyanocobalamin (vitamin B-12) 1,000 mcg PO DAILY 02/1702/17/25 Unknown History 1,000 mcg tablet docusate sodium 100 mg capsule 100 mg PO DAILY 5 02/17/25 Unknown History (Stool Softener) escitalopram oxalate 20 mg tablet 20 mg PO BEDTIME 02/17/25 Unknown History methocarbamol 500 mg tablet 500 mg PO QID PRN muscle s pasm 02/17/25 02/17/25 Unknown History Physical Exam 2 Vital Signs: Vital Signs: Last Vital Signs Temp 98.9 F 02/17/25 11:12 Pulse 68 02/17/25 11:12 Resp 18 02/17/25 11:12 BP 148/83 H 02/17/25 11:12 Pulse Ox 96 02/17/25 11:12 O2 Del Method Room Air 02/17/25 11:12 BMI result Body Mass Index 38.0 GENERAL APPEARANCE: in no acute distress, pleasant. NECK: no carotid bruit, no jugular venous distention. SKIN: no suspicious lesions, warm and dry. HEART: no murmurs, regular rate and rhythm. LUNGS: clear to auscultation bilaterally. ABDOMEN: soft, nontender. EXTREMITIES: no edema. PERIPHERAL PULSES: equal. NEUROLOGIC: No gross deficits, AAO X 3 Objective Labs and Meds 02/17/25 05:36 02/17/25 02:27 Lab results: Laboratory Results - last 24 hr 02/16/25 02/16/25 02/17/25 16:02 19:17 02:27 WBC 8.7 9.4 8.1 RBC 4.94 4.55 L 4.64 Hgb 14.4 13.5 L 13.5 L Hct 43.9 39.8 L 41.4 L MCV 88.9 87.5 89.2 MCH 29.1 29.7 29.1 MCHC 32.8 33.9 32.6 RDW 13.6 13.7 13.9 Plt Count 257 224 230 MPV 9.2 L 9.1 L 9.2 L Immature Gran % (Auto) 0.6 H Neut % (Auto) 63.2 Lymph % (Auto) 20.9 [place] % (Auto) 10.2 Eos % (Auto) 4.6 H Baso % (Auto) 0.5 Lymph # (Auto) 1.8 [place] # (Auto) 0.9 Eos # (Auto) 0.4 Baso # (Auto) 0.0 Abs Immat Gran (auto) 0.05 H Absolute Neuts (auto) 5.5 Absolute Nucleated RBC 0.000 0.000 0.000 Nucleated RBC % (auto) 0.0 0.0 0.0 PT 12.4 12.5 H INR 1.1 1.1 APTT 31.1 aPTT Heparin Protocol 43.4 L Sodium 141 142 Potassium 4.3 4.2 Chloride 110 H 112 H Carbon Dioxide 23 23 Anion Gap 12 11 L BUN 18 H 17 H Creatinine 1.65 H 1.69 H Estim Creat Clear Calc 49.8 48.8 Estimated GFR 42 40 Random Glucose 106 105 Calcium 8.3 L 8.0 L Total Bilirubin 0.4 Direct Bilirubin 0.1 AST 34 ALT 19 Alkaline Phosphatase 112 Troponin I High Sens 4.5 4.0 Total Protein 6.7 Albumin 3.8 02/17/25 02/17/25 02/17/25 05:36 08:44 10:30 WBC 8.8 RBC 4.73 Hgb 13.8 L Hct 41.5 L MCV 87.7 MCH 29.2 MCHC 33.3 RDW 13.8 Plt Count 226 MPV 9.1 L Immature Gran % (Auto) Neut % (Auto) Lymph % (Auto) [place] % (Auto) Eos % (Auto) Baso % (Auto) Lymph # (Auto) [place] # (Auto) Eos # (Auto) Baso # (Auto) Abs Immat Gran (auto) Absolute Neuts (auto) Absolute Nucleated RBC 0.000 Nucleated RBC % (auto) 0.0 PT 12.4 INR 1.1 APTT aPTT Heparin Protocol 127.2 H* D 64.3 D Sodium Potassium Chloride Carbon Dioxide Anion Gap BUN Creatinine Estim Creat Clear Calc Estimated GFR Random Glucose Calcium Total Bilirubin Direct Bilirubin AST ALT Alkaline Phosphatase Troponin I High Sens 4.6 Total Protein Albumin Assessment and Plan (1) Unstable angina: Status: Acute Plan Pleasant 69 year gentleman with known history of coronary disease and multiple coronary angiogram in the past presenting for chest discomfort and shortness of breath. His CT scan is showing atypical pneumonia and given dyspnea with activities I think he should be treated for atypical pneumonia. In terms of his chest discomfort, he has had episodes before which were prolonged and had multiple angiograms for similar symptoms. Having said that he has not had any symptoms for 3 years and now suddenly had these symptoms and has background of coronary disease. The case was previously discussed with [facility] and the plan is already in in place that he is being transferred to [facility] for potential angiography. He is on heparin drip for unstable angina. Continue aspirin Plavix and atorvastatin. As he gets a bed available he can be transferred to [facility]. Thank you for allowing me to participate in the care of your patient. Please feel free to contact me if you have any questions. Procedures Date of Service Date of Service: 02/17/25
--- NOTE | 2025-02-17 15:02 | MHC.CM.PN ---
IMM 02/17/25, Pt lives with his , he does not have home health services, PCP confirmed: Dr. Fields. Pt is going to be transferred to [facility] for cardiac care there.
[2025-02-17] MEDS: 0.9 % Sodium Chloride Flush 3 ML SYRINGE IVFLUSH ×2 (15:20→21:44)
[2025-02-17 17:47] LABS: PTT Heparin Drip 39.2 SEC (53-77.9)
[2025-02-17] MEDS: Heparin Sodium,Porcine/1/2NS 25,000 UNIT/250 ML IV.SOLN 10 UNIT IVCONT (22:39)
[2025-02-17 23:58] LABS: PTT Heparin Drip 77.8 SEC (53-77.9)
== END 2025-02-18 01:38 | disposition short-term general hospital (02) | DRG 303 ==
LOC: HO.ED 18:54 → HO.EDOVER 19:28 → HO.IMC 02-17 00:06
PROVIDERS: Nurse Practitioner Family; Admitting Provider Student in an Organized Health Care Education/Training Program; Emergency Provider Emergency Medicine Emergency Medical Services; PCP Internal Medicine; Visit Provider Internal Medicine
DX: I25.110 Atherosclerotic heart disease of native coronary artery with unstable angina pectoris (principal); N17.9 Acute kidney failure, unspecified; Z90.5 Acquired absence of kidney; N40.0 Benign prostatic hyperplasia without lower urinary tract symptoms; E78.2 Mixed hyperlipidemia; F39 Unspecified mood [affective] disorder; M51.16 Intervertebral disc disorders with radiculopathy, lumbar region; Z85.528 Personal history of other malignant neoplasm of kidney; Z79.82 Long term (current) use of aspirin; Z79.02 Long term (current) use of antithrombotics/antiplatelets; Z79.899 Other long term (current) drug therapy
CPT/HCPCS: 36415; 71046; 71275; 80048; 80076; 84484; 85025; 85027; 85610; 85730; 93005; 99285; J0696; J1644; J2270; Q9967

== ENCOUNTER → 2025-02-16 15:58 | Outpatient (BNV) | payer MEDICARE, SELFPAY | PROVIDERS: Emergency Provider Emergency Medicine Emergency Medical Services; PCP Internal Medicine; Visit Provider Radiology Diagnostic Radiology | DX: M51.369 Other intervertebral disc degeneration, lumbar region without mention of lumbar back pain or lower extremity pain (principal) | CPT/HCPCS: 72148 ==

== ENCOUNTER → 2025-02-16 19:18 | Outpatient (BNV) | payer MEDICARE, SELFPAY | PROVIDERS: Admitting Provider Student in an Organized Health Care Education/Training Program; Emergency Provider Emergency Medicine Emergency Medical Services; PCP Internal Medicine; Visit Provider Internal Medicine Cardiovascular Disease | DX: I20.0 Unstable angina (principal) | CPT/HCPCS: 93010; 99222 ==

== ENCOUNTER → 2025-02-16 19:18 | Outpatient (BNV) | payer MEDICARE, SELFPAY | PROVIDERS: Admitting Provider Student in an Organized Health Care Education/Training Program; Emergency Provider Emergency Medicine Emergency Medical Services; PCP Internal Medicine; Visit Provider Student in an Organized Health Care Education/Training Program | DX: I20.0 Unstable angina (principal) | CPT/HCPCS: 99223; 99233 ==

== ENCOUNTER 2025-03-27 09:16 | Outpatient (REF) | payer MEDICARE, SELFPAY ==
--- OUTSIDE RECORDS SUMMARY | 2024-05-02 10:10 | XMS_ITS | Encounter Summary ---
Author Organization [facility] [place] [address] Care Team Providers Care Engine Turner Name Role Phone Moses Fields MD Primary Care Provide r Encounter Details Date Type Department Care Team (Late st Contact Info) Description 05/02/2024 10:10 AM EDT Hospital Encounter TH HISTORIC ENCOUNTERS [facility] ONLY Ruddy Perry MD [address] [place] [phone] Social History Tobacco Use Types Packs/Day Years Used Date Smoking Tobacco: Never Smokeless Tobacco: Never Alcohol Use Standard Drinks/Week Comments Never 0 (1 standard drink = 0.6 oz pur e alcohol) Sex and Gender Information Value Date Recorded Sex Assigned at Male 11/02/2024 1:51 PM EDT Legal Sex Male 6:42 AM EST Gender Identity Male 11/02/2024 1:51 PM EDT Sexual Orientation Straight 11/02/2024 1: 51 PM EDT documented as of this encounter Last Filed Vital Signs Vital Sign Reading Time Taken Comments Blood Pressure 107/70 05/02/2024 10:14 AM EDT Sitting Left arm Pulse 64 05/02/2024 10:14 AM EDT Temperature - - Respiratory Rate - - Oxygen Saturation - - Inhaled Oxygen Concentration - - Weight 103 kg (226 lb) 05/02/2024 10:14 AM EDT Height 170.2 cm (5' 7 ) 11/04/2020 11:0 9 AM EDT Body Mass Index 35.4 04/11/2024 9:43 AM EDT documented in this encounter Progress Notes * Ruddy Perry MD - 05/02/2024 10:15 AM EDT Diagnosis/treatment: 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 The patient underwent a leftradical nephrectomy on 10/24/2023. Interval history: The patient is a 68-year-old gentleman who developed intermittent right flank pain in mid-2022. An A/P CT without IV contrast and without oral contrast on 02/22/2023 showed a 3.4 cm interpolar cyst in the left kidney and was otherwise unremarkable. A lumbar spine MRI with contrast on 02/28/2023 showed multilevel DJD and no evidence of a neoplastic process. An A/P CT with IV contrast and with oral contrast on 09/19/2023 showed a 4.1 x 3.5 x 3.5 cm complex cystic mass in the interpolar region of the left kidney, extending exophytically. An abdominal MRI with contrast on 09/19/2023 showed a 4.5 x 3.8 x 4.0 cm complex cystic lesion with a 2.6 x 2.4 x 1.9 cm solid enhancing nodular component along thesuperior and posterior margin arising exophytically from the left lateral mid to lower kidney. He underwent a left radical nephrectomy on 10/24/[address] Herrera and the pathology revealed a unifocal 3.2 cm grade 2 clear-cell renal cell carcinoma, limited to the kidney. Sarcomatoid features were not present. All margins were negative. There were no sampled nodes. She reported persistent intermittent right flank pain, partially relieved by Tylenol 325 mg, 2 pills twice daily. An A/P CT without IV contrast and without oral contrast on 12/20/2023 showed mild distal right hydroureter without hydronephrosis. He is also followed for microscopic hematuria. A retroperitoneal ultrasound on 12/26/2023 was unremarkable. He underwent a cystoscopy on 01/12/2020 for which was unremarkable. An A/P CT without IV contrast and without oral contrast on 02/14/2024 was unremarkable. He reports chronic constipation, initially partially relieved with a stool softener 1 tablet daily.I instructed increase the stool softener to 1 tablet twice daily and the constipation resolved. He denies melena or hematochezia. The right flank pain resolved with the augmented bowel regimen. A PET/CT on 04/30/2024 was unremarkable. He denies headaches or diplopia. He denies cough, hemoptysis, or dyspnea on exertion. He denies nausea. He reports chronic low back pain. He denies new or unusual bone pain. He reports an intact appetite. He reports an intentional 20 pound weight loss since spring 2023. Past medical history: BPH, microscopic hematuria, GERD osteoarthritis, coronary artery disease, S/P NC, depression. Current medications: Atorvastatin, Flomax, aspirin 81 mg, buspirone, carvedilol, Plavix, cyclobenzaprine, escitalopram, isosorbide dinitrate, losartan, methocarbamol, pantoprazole. Allergies: Codeine, oxycodone, ibuprofen. Family history: His parents had no history of cancer. 1 of 6 sisters was diagnosed with a brain cancer and at age 60 for the cancer. 1 of 8 brothers was diagnosed with lung cancer and at age 69 from the cancer. His son has no history of cancer. Social history: He is retired. 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 He is . He has 1 son and 2 grandchildren. He is a never smoker. Denies alcohol use. Review of systems: The remainder of a 10 point review of systems was unremarkable. Physical examination: HEENT: Sclerae anicteric, normal oropharyngeal membrane. Neck: No lymphadenopathy. Lungs: Clear to auscultation. Heart: No murmurs. Abdomen: Nondistended, soft, mild diffuse tenderness, no organomegaly or masses. Extremities: No edema. Skin: No rash. Neurologic: Normal gait. Assessment/plan: The patient is a 68-year-old gentleman who presented in 10/2023 with a left-sided stage I T1aN0 renal clear-cell cancer. The patient underwent a left radical nephrectomy on 10/24/2023. He developed intermittent right flank pain since the mid-2022 of uncertain etiology. He has lumbar DJD, which may cause the intermittent right flank pain. He has mild diffuse abdominal tenderness on exam today. He has been referred for colonoscopy. He has had multiple A/P CTs in 2023 which have notexplain the abdominal pain. I ordered a PET/CT. He has difficulty with chronic constipation, which may contribute to the right flank pain and abdominal tenderness.. He takes a stool softener, 1 tablet daily with partial relief. I instructed him to increase the stool softener to 1 tablet twice daily. The constipation resolved. A PET/CT in early 04/2024 was unremarkable. There is no clinical evidence of recurrent kidney cancer. documented in this encounter Plan of Treatment Upcoming Encounters Date Type Department Care Team (Late st Contact Info) Description 03/29/2025 9:40 AM EDT Office Visit [facility] [address] [facility] [address] [place] [address] Mariluz aKn NP [address] [place] [address] Dr Mcadams [address] [place] [address] 07/19/2025 9:15 AM EST Office Visit [facility] [address] [place] [phone] Ruddy Perry MD [address] [place] [phone] documented as of this encounter Procedures Procedure Name Priority Date/Time Associated Diagnosis Comments HISTORICAL IMAGING SCAN RESULT 05/02/2024 documented in this encounter Results * HISTORICAL IMAGING SCAN RESULT (05/02/2024) Anatomical Region Laterality Modality Ultrasound us Provider Onbase MD SIMEON US PROCEDURES Final Resul t documented in this encounter Visit Diagnoses Not on filedocumented in this encounter Care Teams Engine Turner Relationship Specialty Start Date End Date Moses Fields MD [address] [place] [address] PCP - General Internal Medicine 05/17/22 documented as of this encounter
--- NOTE | ~2025-03-27 | XR_ITS ---
EXAMINATION: XR PELVIS CLINICAL INFORMATION: M25.551 - Pain in right hip COMPARISON: June 29, 2023. TECHNIQUE: AP view of the pelvis. FINDINGS: Metallic prosthesis with an acetabular and femoral components in both hips. There is lucency along the acetabular component of the hip prosthesis, bilaterally. No gross loosening within the femoral components of either prosthesis. Status post cerclage, bilaterally Metallic hardware no fully included in the [id number] in the lumbar spine. Degenerative changes in the symphysis pubis.. XR/XR pelvis 1-2V IMPRESSION: Status post total hip arthroplasty prosthesis and cerclage, bilaterally. Questionable loosening along the acetabular component both hips. Electronically signed by: Amaury Arrieta MD 03/27/2025 11:11 AM EDT
--- NOTE | ~2025-03-27 | XR_ITS ---
EXAMINATION: XR KNEE BILATERAL CLINICAL INFORMATION: Bilateral knee pain COMPARISON: X-ray left knee dated May 24, 2024. TECHNIQUE: AP views both knees in standing position. Lateral and sunrise views, both knees. FINDINGS: Status post knee arthroplasty prosthesis, bilaterally. There is subtle loosening along the femoral and tibial plateau component, bilaterally pronounced on the right knee. No acute cortical disruption or malalignment. Exostosis at the right quadriceps tendon insertion. Soft tissue calcifications in the left quadriceps tendon region. XR/XR Knee Silvestre 3V IMPRESSION: Total knee arthroplasty prosthesis, bilaterally with loosening involving mostly the right knee prosthesis. Electronically signed by: Amaury Arrieta MD 03/27/2025 11:20 AM EDT
--- OUTSIDE RECORDS SUMMARY | 2025-03-28 09:51 | XMS_ITS | Encounter Summary ---
Author Organization [facility] Address [address] [place] [address] Care Team Providers Care Family Readiness Support Assistant Name Role Phone System, Provider Not In Primary Care Provider Un available Encounter Details Date Type Department Care Team (Late st Contact Info) Description 09/29/2023 Scanned Document [facility] 10 [facility] [address] [place] [phone] [place] [address] [place] [address] Social History Tobacco Use Types Packs/Day Years [...] on filedocumented in this encounter Care Teams Family Readiness Support Assistant Relationship Specialty Start Date End Date System, Provider Not In PCP - General 09/28/23 documented as of this encounter
--- OUTSIDE RECORDS SUMMARY | 2025-03-28 09:51 | XMS_ITS | Encounter Summary ---
Author Organization [facility] Address [address] [place] [address] Care Team Providers Care Line Up Worker Name Role Phone Moses Fields MD Primary Care Provide r Reason for Visit * Reason Onset Date Comments Dizziness 03/12/2025 Loss of Consciousness 03/12/2025 Encounter Details Date Type Department Care Team (Late st Contact Info) Description 03/12/2025 Telephone [facility] [address] [place] [address] David Christy MD [address] [place] [address] [address] [place] [address] Social History Tobacco Use Types Packs/Day Years [...] pt's house. Pt agreeable to go to [facility]. Expect called to [facility]. * Franca Ott - 03/12/2025 1:14 PM EDT Patient complains of dizziness resulting in him fainting before this call. He denies any other symptoms. Stated was walking down the stairs when dizziness occurred. Stated his heart rate is 48 duringthe call. Best call back number is [phone] documented in this encounter Plan of Treatment Upcoming Encounters Date Type Department Care Team (Late st Contact Info) Description 03/29/2025 9:40 AM EDT Office Visit [facility] - [address] [place] [phone] Mariluz Kan NP [address] [place] [address] [place] [address] 07/19/2025 9:15 AM EST Office Visit [facility] Hematology Oncology [address] [place] [address] Ruddy Perry MD [address] [place] [address] documented as of this encounter Visit Diagnoses Not on filedocumented in this encounter Care Teams Line Up Worker Relationship Specialty Start Date End Date Moses Fields MD [address] [place] [address] PCP - General Internal Medicine 05/17/22 documented as of this encounter
--- OUTSIDE RECORDS SUMMARY | 2025-03-28 09:51 | XMS_ITS | Clinical Summary ---
Author Organization [facility] Address [address] [place] [address] Phone Care Team Providers Care Supervisor Aircraft Cleaning Name Role Phone Moses Fields MD Primary [...] 1 (one) time each day. Started at [facility] 5 Active isosorbide mononitrate (IMDUR) 30 mg [...] and differential; Future CVA (cerebral vascular accident) ([facility] V24, [place] V28) 08/13/2022 Assessment & Plan (08/06/2024 2:43 [...] over the last 3 weeks despite trying [id number] pain meds like Tylenol and Motrin.He is [...] Type Department Care Team Description 03/12/2025 Telephone [facility] Cardiology [address] [place] [address] David Christy MD 03/11/2025 Telephone [facility] Cardiology 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 (CMS/HCC V24, CMS/HCC V28) (Primary Dx) 01/08/2025 Telephone [facility] Hematology Oncology [address] [place] [address] Arcelia Saini MD 12/28/2024 1:26 PM EDT - 12/28/2024 11:59 PM EDT Hospital Encounter [facility] PET Scan [address] [place] [address] 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 [place] [place] [facility] [place] Discharge Disposition: Home or Self Care 12/27/2024 Telephone [facility] Hematology Oncology [address] [place] [address] Ruddy Perry MD from Last 3 Months Immunizations Name Administration Dates Next Due Moderna SARS-CoV-2 COVID-19, mRNA, LNP-S, preservative free 06/15/2021 Surgical History Surgery Date Site/Laterality Comments OTHER SURGICAL HISTORY 04/23/2020 PROCEDURE: [place] ARTHRODES[facility]ER[facility]; COMMENT: L3-S1 discectomy and fusion, Dr. Da Silva TOTAL KNEE ARTHROPLASTY Bilateral PROCEDURE: [place] ARTHRP KNE CONDYLE&PLATU MEDIAL&LAT COMPARTMENTS HIP ARTHROPLASTY Bilateral PROCEDURE: HISTORICAL HIP REPLACEMENT CHOLECYSTECTOMY 11/19/2019 PROCEDURE: HISTORICAL CHOLECYSTECTOMY OTHER SURGICAL HISTORY PROCEDURE: SPINAL FUSION, EA ADD'L INTERSPACE; COMMENT: Cervical spinal fusion OTHER SURGICAL HISTORY PROCEDURE: [place] HEMORRHOIDECTOMY INTERNAL RUBBER BAND LIGATIONS NECK SURGERY PROCEDURE:NECK SURGERY JOINT REPLACEMENT PROCEDURE:JOINT REPLACEMENT BACK SURGERY PROCEDURE:BACK SURGERY Medical History Medical History Date Comments Acute bronchitis with wheezing D X:Acute bronchitis with wheezing Difficulty swallowing solids DX: Difficulty swallowing solids Old LA (myocardial infarction) D X:Old LA (myocardial infarction) HTN (hypertension) DX:HTN (hyper tension) Depression DX:Depression GERD (gastroesophageal reflu x disease) 08/11/2022 DX:GERD (gastroesophageal re flux disease) CVA (cerebral vascular accid ent) [place] [place] [facility] [place]) 08/11/2022 DX:CVA (cerebral vascular a ccident) ([facility]) Adult-onset obesity DX:Adult-ons et obesity Degeneration of lumbar inter vertebral disc DX:Degeneration of lumbar intervertebral disc Hx of osteoarthritis DX:Hx of os teoarthritis Major depression in remissio n ([facility] [place] DX:Major depression in remis mikayla ([facility]) Severe obesity (BMI 35.0-35. 9 with comorbidity) ([facility] [place], [facility] [place]) DX:Severe obesity (BMI 35.0- 35.9 with comorbidity) ([facility]) Adjustment disorder with mix ed emotional features DX:Adjustment disorder with mixed emotional features Backache DX:Backache BPPV (benign paroxysmal posi tional vertigo) DX:BPPV (benign paroxysmal p ositional vertigo) Acute urinary retention DX:Acute urinary retention Impaired mobility and ADLs DX:Im paired mobility and ADLs Left hemiplegia ([facility] V24 , [facility] V28) DX:Left hemiplegia (HCC) Injury of back DX:Injury of maryanne k Arthritis DX:Arthritis Hypertension DX:Hypertension GERD (gastroesophageal reflu x disease) DX:GERD (gastroesophageal re flux disease) Heart disease DX:Heart disease History of kidney cancer Stroke ([facility] V24, [facility] V28) Due to cardiac catherization Family History [...] Description 03/29/2025 9:40 AM EDT Office Visit [facility] [address] [facility] [address] [place] [address] Mariluz Kan NP [address] [place] [address] [place] [address] 07/19/2025 9:15 AM EST Office Visit [facility] Hematology Oncology [address] [place] [address] Ruddy Perry MD [address] [place] [address] Health Maintenance Due Date Last [...] Signed Date: 01/03/2025 15:41 ET Workstation ID: [id number] Transcribed By: Self Edit Transcribed Date: 01/03/2025 [...] Signed Date: 01/03/2025 15:41 ET Workstation ID: [id number] Transcribed By: Self Edit Transcribed Date: 01/03/2025 15:31 ET us Ruddy Perry MD IMG NM PROCEDURES Final Res ult * (ABNORMAL) Basic metabolic panel (09/12/2024 10:55 AM EST) Sodium 141 133 - 145 mmol/L LAB CHEMISTRY METHOD 09/12/2024 11:58 AM [facility] Potassium 4.6 3.5 - 5.5 mmol/L LAB CHEMISTRY METHOD 09/12/2024 11:58 AM [facility] Chloride 108 96 - 110 mmol/L LAB CHEMISTRY METHOD 09/12/2024 11:58 AM [facility] CO2 26 21 - 32 mmol/L LAB CHEMISTRY METHOD 09/12/2024 11:58 AM [facility] Anion Gap 7 3 - 11 LAB CHEMISTRY METHOD 09/12/2024 11:58 AM [facility] Glucose 105(H) 70 - 100 mg/dL LAB CHEMISTRY METHOD 09/12/2024 11:58 AM [facility] BUN 21 5 - 25 mg/dL LAB CHEMISTRY METHOD 09/12/2024 11:58 AM [facility] Creatinine 1.76(H) 0.70 - 1.30 mg/dL LAB CHEMISTRY METHOD 09/12/2024 11:58 AM [facility] eGFR 41(L) >=60 mL/min/1. 73m2 LAB CHEMISTRY METHOD 09/12/2024 11:58 AM [facility] Comment:Calculation based on the Chronic Kidney Disease Epidemiology Collaboration (CKD-EPI) equation refit without adjustment for race. BUN/Creatinine Ratio 11.9 LAB CHEMISTRY METHOD 09/12/2024 11:58 AM [facility] Calcium 8.6 8.5 - 10.5 mg/dL LAB CHEMISTRY METHOD 09/12/2024 11:58 AM EST [facility] Blood Venous blood specimen / Unknown Venipuncture / Unknown 09/12/2024 10:55 AM EST 09/12/2024 11:24 AM EST us Mariluz Kan FERRY ENGINEER LAB BLOOD ORDERABLES F inal Result [facility] [address] [place] [address], from Last 3 Months or Most Recently Relevant to Health Maintenance Insurance MEDICARE [facility] Advance Directives Documents on File Type Date Recorded Patient Blade Changer Expl anation Health Care Decision (hx) 10/27/2023 AD LONGO DIRECTIVE Health Care Decision (hx) 10/27/2023 AD LONGO DIRECTIVE Health Care Decision (hx) 10/27/2023 AD LONGO DIRECTIVE Care Teams Supervisor Aircraft Cleaning Relationship Specialty Start Date End Date Moses Fields MD [address] [place], [place] [address]cirilo Garcia [place] PCP - General Internal Medicine 05/17/22
--- OUTSIDE RECORDS SUMMARY | 2025-03-28 09:51 | XMS_ITS | Encounter Summary ---
Author Organization [facility] Address [address] [place] [address] Care Team Providers Care Executive Director Global Brand Marketing Name Role Phone Moses Fields MD Primary Care Provide r Encounter Details Date Type Department Care Team Description 03/09/2024 Social Work [facility] Oncology Services [address] [place] [address] Kelly Cedeño MSW Social History Tobacco Use [...] on filedocumented in this encounter Care Teams Executive Director Global Brand Marketing Relationship Specialty Start Date End Date Moses Fields MD [address] [facility] [place] [address] PCP - General Internal Medicine 02/29/24 documented as of this encounter
--- OUTSIDE RECORDS SUMMARY | 2025-03-28 09:51 | XMS_ITS | Encounter Summary ---
Author Organization [facility] Address [address] [place] [address] Care Team Providers Care Marker Assembler Name Role Phone Moses Fields MD Primary Care Provide r Encounter Details Date Type Department Care Team Description 03/09/2024 Social Work [facility] Oncology Services [address] [place] [address] Kelly Cedeño MSW Social History Tobacco Use [...] on filedocumented in this encounter Care Teams Marker Assembler Relationship Specialty Start Date End Date Moses Fields MD [address] [facility] [place] [address] PCP - General Internal Medicine 02/29/24 documented as of this encounter
--- OUTSIDE RECORDS SUMMARY | 2025-03-28 09:51 | XMS_ITS | Clinical Summary ---
Author Organization [facility] Address [address] [place] [address] Care Team Providers Care Vending Technician Name Role Phone System, Provider Not [...] MEDICARE PART A & B Care Teams Vending Technician Relationship Specialty Start Date End Date System, Provider Not In PCP - General 09/28/23
--- OUTSIDE RECORDS SUMMARY | 2025-03-28 09:52 | XMS_ITS | Clinical Summary ---
Author Organization [facility] Address [address] [address] Phone Care Team Providers Care Freight Rate Analyst Name Role Phone Moses Fields MD Primary [...] Only [facility] [address] [facility] [address] [place] [address] Estephania Bray ARNP Stage [address] [...] Office Visit [facility] [address] [address] Sky Guadarrama MD [address] [phone] Health Maintenance Due Date Last Done Comments [...] patient's age to complete this topic Insurance [facility] Medicare [facility] Medicare [facility] [place] [place] [id number] Care Teams Freight Rate Analyst Relationship Specialty Start Date End Date Moses Fields MD [facility] [address] [place] [address] [address] [place], [place] PCP - General Internal Medicine 01/06/24
--- OUTSIDE RECORDS SUMMARY | 2025-03-28 09:52 | XMS_ITS | Clinical Summary ---
Author Organization [facility] Address [address] [place] [address] Care Team Providers Care Service Delivery Manager Name Role Phone Moses Fields MD Primary [...] age to complete this topic Care Teams Service Delivery Manager Relationship Specialty Start Date End Date Moses Fields MD [address] [facility] [place] [address] PCP - General Internal Medicine 02/29/24
== END 2025-03-27 09:17 | disposition home or self-care (01) ==
LOC: HO.HOSX 09:16
PROVIDERS: Visit Provider Orthopaedic Surgery
DX: M25.561 Pain in right knee (principal); M25.562 Pain in left knee; M25.551 Pain in right hip; M25.552 Pain in left hip
CPT/HCPCS: 72170; 73562; 99212

== ENCOUNTER 2025-03-27 10:12 | Outpatient (AMB) | payer MEDICARE, SELFPAY ==
--- OUTSIDE RECORDS SUMMARY | 2024-05-02 10:10 | XMS_ITS | Encounter Summary ---
Author Organization [facility] [place] [address] Care Team Providers Care Fundraising Director Name Role Phone oMses Fields MD Primary Care Provide r Encounter Details Date Type Department Care Team (Late st Contact Info) Description 05/02/2024 10:10 AM EDT Hospital Encounter TH HISTORIC ENCOUNTERS [facility] ONLY Ruddy Perry MD [address] [place] [phone] Social History Tobacco Use Types Packs/Day [...] hematuria, GERD osteoarthritis, coronary artery disease, S/P PA, depression. Current medications: Atorvastatin, Flomax, aspirin 81 [...] is retired. He formally worked as a harvest worker. He is . He has 1 son [...] Description 03/29/2025 9:40 AM EDT Office Visit [facility] [address] [facility] [address] [place] [address] Mariluz Kan NP [address] [place] [address] Dr Mcadams [address] [place] [address] 07/19/2025 9:15 AM EST Office Visit [facility] Hematology Oncology [address] [place] [phone] Ruddy Perry MD [address] [place] [phone] documented as of this encounter Procedures Procedure Name Priority Date/Time Associated Diagnosis Comments HISTORICAL IMAGING SCAN RESULT 05/02/2024 documented in this encounter Results * HISTORICAL IMAGING SCAN RESULT (05/02/2024) Anatomical Region Laterality Modality Ultrasound us Provider Onbase MD SIMEON US PROCEDURES Final Resul t documented in this encounter Visit Diagnoses Not on filedocumented in this encounter Care Teams Fundraising Director Relationship Specialty Start Date End Date Moses Fields MD [address] [place] [address] PCP - General Internal Medicine 05/17/22 documented as of this encounter
--- NOTE | 2025-03-27 10:43 | A.OFFVIS_ITS ---
Vital Signs 03/27/25 10:45 Height 5 ft 7 in Weight 230 lb BMI 36.0 Intake Visit Reasons: Bilateral total hip replacements, Bilateral total knee replacements Intake Note: Pritesh is a 69 year old male who presents with complaints of mild intermittent discomfort in both of his hips and knees after undergoing bilateral total hip replacement surgery as well as bilateral total knee replacement surgeries. He reports intermittent ?numb feeling? in his right leg. He states that his symptoms are tolerable to him. He is due to see a vascular surgeon in the near future. He has been evaluated by the neurosurgery department. No further back surgery was recommended at this time. Allergies ibuprofen (From Motrin) Allergy (Unknown, Verified 03/27/25 10:46) Vomiting oxycodone Allergy (Unknown, Verified 03/27/25 10:46) Nausea codeine Adverse Reaction (Mild, Verified 03/27/25 10:46) Gastrointestinal Upset Medication List - Last Reconciled 03/27/25 by Missael Bashir MD aspirin 81 mg PO DAILY atorvastatin (Lipitor) 80 mg PO BEDTIME bupropion HCl SR 100 mg PO QAM buspirone 10 mg PO BEDTIME carvedilol 3.125 mg PO BID cholecalciferol (vitamin D3) 25 mcg PO DAILY clopidogrel 75 mg PO DAILY cyanocobalamin (vitamin B-12) 1,000 mcg PO DAILY docusate sodium (Stool Softener) 100 mg PO DAILY escitalopram oxalate 20 mg PO BEDTIME ezetimibe 10 mg PO BEDTIME heparin(porcine) in 0.45% NaCl 25,000 unit/250 mL 25,000 units (250 mL) continuous IV infusion .Q0M isosorbide mononitrate ER 90 mg PO DAILY meclizine 12.5 mg PO TID PRN methocarbamol 500 mg PO QID PRN tamsulosin 0.4 mg PO DAILY PFSH Medical History Major depression in remission Hypertension Hyperlipidemia Encephalopathy Degeneration of lumbar intervertebral disc Coronary arteriosclerosis CAD in [place] artery Cervical spondylosis Adjustment disorder Hypersomnia Snoring Obesity Spondylosis BPPV (benign paroxysmal positional vertigo) Myocardial infarction Surgical History H/O hemorrhoidectomy Hx of fusion of cervical spine (~2004) Hx laparoscopic cholecystectomy (~10/2019) History of hip surgery History of knee replacement Hx of cholecystectomy Family History Father CAD (coronary artery disease) Hyperlipidemia Mother CAD (coronary artery disease) Hyperlipidemia Social History Household Members: Spouse Housing: House Do you presently have visiting nurse or other home services: No Alcohol intake: current Alcohol intake frequency: a few times a week Alcohol type: wine Patient Tobacco Use Status: Never used Tobacco Physical Exam Vital Signs: BMI result Body Mass Index 36.0 Extrem Other: Bilateral hip examination shows that the surgical incisions are well healed, no erythema, minimal discomfort with range of motion, no tenderness over his bursa Bilateral knee examination shows that the surgical incisions are well healed, full active extension and flexion to 120 degrees, his patellae track well, no instability Results Reviewed Results Reviewed: X-rays of the patient's bilateral hips so total hip arthroplasties in good position with no signs of loosening X-rays of the patient's bilateral knee show total knee arthroplasties in good position with no signs of loosening Assessment & Plan Assessment & Plan (1) Bilateral knee pain: Code(s): M25.561 - Pain in right knee; M25.562 - Pain in left knee Category: Medical (2) Bilateral hip pain: Code(s): M25.551 - Pain in right hip; M25.552 - Pain in left hip Category: Medical Plan Mr. Cota continues to do well after undergoing bilateral total hip replacement surgeries as well as bilateral total knee replacement surgeries. He will continue with his home exercise program. He does know to take antibiotics before any dental work. He will contact me prior to his annual follow-up appointment should any questions or concerns arise. I spent 21 minutes in reviewing the patient's records and imaging studies, seeing the patient and documenting in the medical record. Orders: Orders XR Knee Silvestre 3V Today M25.561 - Pain in right knee, M25.562 - Pain in left knee XR pelvis 1-2V Today M25.551 - Pain in right hip, M25.552 - Pain in left hip Coding Level of Care Code Est Pt Level 3 (79466) Complex EM visit Add On G2211 Diagnoses Bilateral knee pain M25.561; M25.562 Bilateral hip pain M25.551; M25.552
[2025-03-27 10:45] VITALS: BMI 36.0
--- OUTSIDE RECORDS SUMMARY | 2025-03-27 11:42 | XMS_ITS | Clinical Summary ---
Author Organization [facility] Address [address] [address] Phone Care Team Providers Care Forging Roll Operator Name Role Phone Moses Fields MD [...] 01/06/2024 Trochanteric bursitis of left hip 11/04/2020 Encounters Date Type Department Care Team Description 02/22/2025 Orders Only [facility] [address] [facility] [address] [place] [address] Estephania Bray ARNP Stage 3a chronic kidney disease (HCC); History of nephrectomy from Last 3 Months Immunizations Immunization Administration Dates Next Due Moderna [...] Care Team (Late st Contact Info) Description 05/01/2025 1:45 PM EDT Office Visit [facility] [address] [address] Sky Guadarrama MD [address] [phone] Health Maintenance Due Date Last Done Comments [...] patient's age to complete this topic Insurance [facility] Medicare [facility] Medicare [facility] [place] [place] [id number] Care Teams Forging Roll Operator Relationship Specialty Start Date End Date Moses Fields MD [facility] [address] [place] [address] [phone] [place], [place] PCP - General Internal Medicine 01/06/24
--- OUTSIDE RECORDS SUMMARY | 2025-03-27 11:42 | XMS_ITS | Clinical Summary ---
Author Organization [facility] Address [address] [place] [address] Care Team Providers Care Technical Rep Name Role Phone System, Provider Not In [...] Health Maintenance Due Date Last Done Comments Advance Care Planning 1955 Hepatitis C Virus Screening 1955 DTaP/Tdap/Td Vaccines (1 - Tdap) 1974 Colonoscopy 2000 Pneumococcal Vaccines 50+ (1 of 1 - PCV) 2005 Zoster (Shingles) Vaccine (1 of 2) 2005 COVID-19 Vaccine ( - 2023-2 5 season) 2024 Influenza Vaccine 02/22/2025 RSV Vaccine 60 years and old er and Patients (1 - 1-dose 75+ series) 2030 Hepatitis B Vaccines Aged Out No long er eligible based on patient's age to complete this topic Insurance MEDICARE PART A & B Care Teams Technical Rep Relationship Specialty Start Date End Date System, Provider Not In PCP - General 09/28/23
--- OUTSIDE RECORDS SUMMARY | 2025-03-27 11:42 | XMS_ITS | Encounter Summary ---
Author Organization [facility] Address [address] [place] [address] Care Team Providers Care Nutrition Assistant Name Role Phone Moses Fields MD Primary Care Provide r Reason for Visit * Reason Onset Date Comments Dizziness 03/12/2025 Loss of Consciousness 03/12/2025 Encounter Details Date Type Department Care Team (Late st Contact Info) Description 03/12/2025 Telephone [facility] [address] [place] [address] David Christy MD [address] [place] [address] [address] [place] [address] Social History Tobacco Use Types Packs/Day Years [...] PM EDT documented as of this encounter Progress Notes * Gia Vargas RN - 03/13/2025 10:05 AM EDT [facility] notes reviewed. Pt DC from ER. Impression: fall d/t vertigo. Negative CT imaging. Spoke w/pt for f/u. Pt states that he's feeling a lot better today. Denies any other complaints at this time. Pt is already scheduled for HFU for 03/29/25 w/AG. Pt expressed appreciation for follow up call. * Mariluz Kan NP - 03/13/2025 8:54 AM EDT Noted thanks * Gia Vargas RN - 03/12/2025 1:30 PM EDT Spoke w/ pt. Please see TC encounter from yesterday, 03/11/25. Pt states that he still felt dizzy today. Prior to phone call- pt felt dizzy, fell down 6 stairs, and lost consciousness. At time of call, pt awake, alert, oriented, and answering questions appropriately. No slurred speech noted over the phone. Pt states that he's able to walk and move around. A time of call-c/o back, neck, and headache 01/31. Pt checked his HR and pulse ox and he noted that the HR was 33 then up to 48. EMS dispatched to pt's house. Pt agreeable to go to [facility]. Expect called to [facility]. * Franca Ott - 03/12/2025 1:14 PM EDT Patient complains of dizziness resulting in him fainting before this call. He denies any other symptoms. Stated was walking down the stairs when dizziness occurred. Stated his heart rate is 48 duringthe call. Best call back number is [phone] documented in this encounter Plan of Treatment Upcoming Encounters Date Type Department Care Team (Late st Contact Info) Description 03/29/2025 9:40 AM EDT Office Visit [facility] [address] [place] [phone] Mariluz Kan NP [address] [place] [address] [place] [address] 07/19/2025 9:15 AM EST Office Visit [facility] [address] [place] [address] Ruddy Perry MD [address] [place] [address] documented as of this encounter Visit Diagnoses Not on filedocumented in this encounter Care Teams Nutrition Assistant Relationship Specialty Start Date End Date Moses Fields MD [address] [place] [address] PCP - General Internal Medicine 05/17/22 documented as of this encounter
--- OUTSIDE RECORDS SUMMARY | 2025-03-27 11:42 | XMS_ITS | Encounter Summary ---
Author Organization [facility] Address [address] [place] [address] Care Team Providers Care Learning Support Services Director Name Role Phone Moses Fields MD Primary Care Provide r Encounter Details Date Type Department Care Team Description 03/09/2024 Social Work [facility] [address] [place] [address] Kelly Cedeño MSW Social History Tobacco Use [...] on filedocumented in this encounter Care Teams Learning Support Services Director Relationship Specialty Start Date End Date Moses Fields MD [address] [facility] [place] [address] PCP - General Internal Medicine 02/29/24 documented as of this encounter
--- OUTSIDE RECORDS SUMMARY | 2025-03-27 11:42 | XMS_ITS | Clinical Summary ---
Author Organization [facility] Address [address] [place] [address] Phone Care Team Providers Care Farmer Vegetable Name Role Phone Moses Fields MD Primary [...] tabletIndicatio ns:Cerebrovascu lar accident (CVA), unspecified mechanism (CMS/HCC V24, CMS/HCC V28),Arterioscl erosis of coronary artery Take 1 tablet (3.125 [...] EVERY DAY 90 tablet 1 5 Active metoprolol succinate (TOPROL-XL) [...] mouth 4 (four) times a day. Active amLODIPine (NORVASC) 5 mg tablet Take 1 tablet (5 mg total) by mouth 1 (one) time each day. Started at [facility] 5 Active isosorbide mononitrate (IMDUR) 30 mg 24 hr tablet Take 3 tablets (90 mg total) by mouth 1 (one) time each day. 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 His PCP gave him a prescription [...] Encounters Date Type Department Care Team Description 03/12/2025 Telephone [facility] Cardiology [address] [place] [address] David Christy MD 03/11/2025 Telephone 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 (CMS/HCC V24, CMS/HCC V28) (Primary Dx) 01/08/2025 Telephone [facility] H[facility]ology Oncology [address] [place] [address] Arcelia Saini MD 12/28/2024 1:26 PM EDT - 12/28/2024 11:59 PM EDT Hospital Encounter [facility] PET Scan [address] [place] [address] 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 ([facility], [facility] V28) Discharge Disposition: Home or Self Care 12/27/2024 Telephone [facility] H[facility]ology Oncology [address] [place] [address] Ruddy Perry MD from Last 3 Months Immunizations Name Administration Dates Next Due Moderna SARS-CoV-2 COVID-19, mRNA, LNP-S, preservative free 06/15/2021 Surgical History Surgery Date Site/Laterality Comments OTHER SURGICAL HISTORY 04/23/2020 PROCEDURE: [place] [facility]; COMMENT: L3-S1 discectomy and fusion, Dr. Da Silva TOTAL KNEE ARTHROPLASTY Bilateral PROCEDURE: SC ARTHRP KNE CONDYLE&PLATU MEDIAL&LAT COMPARTMENTS HIP ARTHROPLASTY Bilateral PROCEDURE: HISTORICAL HIP REPLACEMENT CHOLECYSTECTOMY 11/19/2019 PROCEDURE: HISTORICAL CHOLECYSTECTOMY OTHER SURGICAL HISTORY PROCEDURE: SPINAL FUSION, EA ADD'L INTERSPACE; COMMENT: Cervical spinal fusion OTHER SURGICAL HISTORY PROCEDURE: SC HEMORRHOIDECTOMY INTERNAL RUBBER BAND LIGATIONS NECK SURGERY PROCEDURE:NECK SURGERY JOINT REPLACEMENT PROCEDURE:JOINT REPLACEMENT BACK SURGERY PROCEDURE:BACK SURGERY Medical History Medical History Date Comments Acute bronchitis with wheezing D X:Acute bronchitis with wheezing Difficulty swallowing solids DX: Difficulty swallowing solids [place] (myocardial infarction) D X:[place] (myocardial infarction) HTN (hypertension) DX:HTN (hyper tension) Depression DX:Depression GERD (gastroesophageal reflu x disease) 08/11/2022 DX:GERD (gastroesophageal re flux disease) CVA (cerebral vascular accid ent) ([facility] [place], [facility] V28) 08/11/2022 DX:CVA (cerebral vascular a ccident) ([facility]) Adult-onset obesity DX:Adult-ons et obesity Degeneration of lumbar inter vertebral disc DX:Degeneration of lumbar intervertebral disc Hx of osteoarthritis DX:Hx of os teoarthritis Major depression in remissio n ([facility] V24) DX:Major depression in remis mikayla ([facility]) Severe obesity (BMI 35.0-35. 9 with comorbidity) ([facility], [facility] V28) DX:Severe obesity (BMI 35.0- 35.9 with comorbidity) ([facility]) Adjustment disorder with mix ed emotional features DX:Adjustment disorder with mixed emotional features Backache DX:Backache BPPV (benign paroxysmal posi tional vertigo) DX:BPPV (benign paroxysmal p ositional vertigo) Acute urinary retention DX:Acute urinary retention Impaired mobility and ADLs DX:Im paired mobility and ADLs Left hemiplegia ([facility] V24 , [facility] V28) DX:Left hemiplegia (HCC) Injury of back DX:Injury of maryanne k Arthritis DX:Arthritis Hypertension DX:Hypertension GERD (gastroesophageal reflu x disease) DX:GERD (gastroesophageal re flux disease) Heart disease DX:Heart disease History of kidney cancer Stroke ([facility] V24, [facility] V28) Due to cardiac catherization Family History [...] Description 03/29/2025 9:40 AM EDT Office Visit [facility] - [address] [facility] [address] [place] [address] Mariluz Kan NP [address] [place] [address] [place] [address] 07/19/2025 9:15 AM EST Office Visit [facility] Hematology Oncology [address] [place] [address] Ruddy Perry MD [address] [place] [address] Health Maintenance Due Date Last [...] 07/03/2022 Social Influencers of Health Screening 07/03/2022 Depression Screening 07/25/2024 COVID-19 Vaccine (4 - 2024-2 6 season) 2025 06/15/2021, 10/20/2020, 09/22/2020 Influenza Vaccine (#1) 2025 [...] Procedure Name Priority Date/Time Associated Diagnosis Comments EXTERNAL ECHO Routine 02/18/2025 11:[address] SKULL TO MID THIGH INITIAL [...] Recently Relevant to Health Maintenance Results * External Echo (02/18/2025 11:38 AM EDT) Anatomical Region Laterality Modality Ultrasound us Historical Provider MD ILAN SERRANO PROCEDURES Final Result * PET CT Skull to Mid Thigh [...] Signed Date: 01/03/2025 15:41 ET Workstation ID: [id number] Transcribed By: Self Edit Transcribed Date: 01/03/2025 [...] questioned. -------- FINAL REPORT -------- Dictated By: Nancy, Parshant Dictated Date: 01/03/2025 15:31 ET Assigned Physician: Robert Cruz Reviewed and Electronically Signed By: Robert Cruz Signed Date: 01/03/2025 15:41 ET Workstation ID: [id number] Transcribed By: Self Edit Transcribed Date: 01/03/2025 15:31 ET us Ruddy Perry MD IMG NM PROCEDURES Final Res ult * (ABNORMAL) Basic metabolic panel (09/12/2024 10:55 AM EST) Sodium 141 133 - 145 mmol/L LAB CHEMISTRY METHOD 09/12/2024 11:58 AM [facility] Potassium 4.6 3.5 - 5.5 mmol/L LAB CHEMISTRY METHOD 09/12/2024 11:58 AM [facility] Chloride 108 96 - 110 mmol/L LAB CHEMISTRY METHOD 09/12/2024 11:58 AM [facility] CO2 26 21 - 32 mmol/L LAB CHEMISTRY METHOD 09/12/2024 11:58 AM [facility] Anion Gap 7 3 - 11 LAB CHEMISTRY METHOD 09/12/2024 11:58 AM [facility] Glucose 105(H) 70 - 100 mg/dL LAB CHEMISTRY METHOD 09/12/2024 11:58 AM [facility] BUN 21 5 - 25 mg/dL LAB CHEMISTRY METHOD 09/12/2024 11:58 AM [facility] Creatinine 1.76(H) 0.70 - 1.30 mg/dL LAB CHEMISTRY METHOD 09/12/2024 11:58 AM [facility] eGFR 41(L) >=60 mL/min/1. 73m2 LAB CHEMISTRY METHOD 09/12/2024 11:58 AM [facility] Comment:Calculation based on the Chronic Kidney Disease Epidemiology Collaboration (CKD-EPI) equation refit without adjustment for race. BUN/Creatinine Ratio 11.9 LAB CHEMISTRY METHOD 09/12/2024 11:58 AM [facility] Calcium 8.6 8.5 - 10.5 mg/dL LAB CHEMISTRY METHOD 09/12/2024 11:58 AM EST [facility] Blood Venous blood specimen / Unknown Venipuncture / Unknown 09/12/2024 10:55 AM EST 09/12/2024 11:24 AM EST us Mariluz Kan [employer] LAB BLOOD ORDERABLES F inal Result [facility] [address] [place] [address], from Last 3 Months or Most Recently Relevant to Health Maintenance Insurance MEDICARE [facility] Advance Directives Documents on File Type Date Recorded Patient Amplifier Mechanic Expl anation Health Care Decision (hx) 10/27/2023 AD LONGO DIRECTIVE Health Care Decision (hx) 10/27/2023 AD LONGO DIRECTIVE Health Care Decision (hx) 10/27/2023 AD LONGO DIRECTIVE Care Teams Farmer Vegetable Relationship Specialty Start Date End Date Moses Fields MD [address] [place], [place] [address]cirilo Garcia [place] PCP - General Internal Medicine 05/17/22
--- OUTSIDE RECORDS SUMMARY | 2025-03-27 11:42 | XMS_ITS | Encounter Summary ---
Author Organization [facility] Address [address] [place] [address] Care Team Providers Care Planning Manager Name Role Phone System, Provider Not In Primary Care Provider Un available Encounter Details Date Type Department Care Team (Late st Contact Info) Description 09/29/2023 Scanned Document [facility] [address] [place] [phone] Leandra Herrera MD [address] [place] [address] Social History Tobacco Use Types Packs/Day Years [...] on filedocumented in this encounter Care Teams Planning Manager Relationship Specialty Start Date End Date System, Provider Not In PCP - General 09/28/23 documented as of this encounter
--- OUTSIDE RECORDS SUMMARY | 2025-03-27 11:42 | XMS_ITS | Clinical Summary ---
Author Organization [facility] Address [address] [place] [address] Care Team Providers Care Warehouse Engineer Name Role Phone Moses Fields MD Primary [...] 64 05/02/2024 10:14 AM EDT Temperature 35.8 C (96.5 F) 05/02/2024 10:14 AM EDT Respiratory Rate - - Oxygen Saturation 98% [...] risk series) 10/13/2020 09/22/2020 Influenza Vaccine (#1) 2025 07/05/2023 RSV Adult > 60+ Yrs or Completed 3 Hepatitis B Vaccines Aged Out No long er eligible based on patient's age to complete this topic RSV Ped < 20 months Aged Out No longe r eligible based on patient's age to complete this topic Care Teams Warehouse Engineer Relationship Specialty Start Date End Date Moses Fields MD [address] [facility] [place] [address] PCP - General Internal Medicine 02/29/24
--- OUTSIDE RECORDS SUMMARY | 2025-03-27 11:42 | XMS_ITS | Encounter Summary ---
Author Organization [facility] Address [address] [place] [address] Care Team Providers Care Vertical Contour Band Saw Operator Name Role Phone Moses Fields MD Primary Care Provide r Encounter Details Date Type Department Care Team Description 03/09/2024 Social Work [facility] Oncology Services [address] [place] [address] Kelly Cedeño MSW Social History Tobacco Use [...] on filedocumented in this encounter Care Teams Vertical Contour Band Saw Operator Relationship Specialty Start Date End Date Moses Fields MD [address] [facility] [place] [address] PCP - General Internal Medicine 02/29/24 documented as of this encounter
== END 2025-03-27 11:04 | disposition home or self-care (01) ==
PROVIDERS: PCP Internal Medicine; Visit Provider Orthopaedic Surgery
DX: M25.561 Pain in right knee (principal); M25.562 Pain in left knee; M25.551 Pain in right hip; M25.552 Pain in left hip
CPT/HCPCS: 99213; G2211

== ENCOUNTER → 2025-03-27 10:29 | Outpatient (BNV) | payer MEDICARE, SELFPAY | PROVIDERS: Visit Provider Radiology Diagnostic Radiology | DX: M25.561 Pain in right knee (principal); M25.562 Pain in left knee; Z96.653 Presence of artificial knee joint, bilateral; M25.551 Pain in right hip; Z96.643 Presence of artificial hip joint, bilateral | CPT/HCPCS: 72170; 73562 ==